=== PATIENT | female | born 1980 | race Caucasian/White ===

== ENCOUNTER 2025-06-18 18:54 | Emergency (ER) | payer SELFPAY ==
[2025-06-18 18:55] VITALS: BP 122/80; PULSE 88; RESP 16; TEMP 36.6; O2SAT 97; BMI 44.7
--- NOTE | 2025-06-18 19:42 | EX.ED.DYSGE1 ---
HPI History of Present Illness Chief Complaint: Lower Extremity Injury PFSH PFSH Allergy/AdvReac Type Severity Reaction Status Date / Time Opioids - Morphine Analogues AdvReac Mild INTOLERANC Verified 06/18/25 18:55 (narcotics) E EXAM Physical Exam Const Vital Signs: 06/18/25 18:55 Temperature 98 F Temperature Source Temporal Pulse Rate 88 Respiratory Rate 16 Blood Pressure 122/80 H Blood Pressure Mean 94 Pulse Ox 97 Oxygen Delivery Method Room Air [facility] Narrative Medical decision making narrative: HISTORY OF PRESENT ILLNESS: Chief complaint: Right thigh pain 44-year-old female presents with right thigh numbness and sharp shooting pains. She notes it is painful to touch at times but not currently. She denies any injury REVIEW OF SYSTEMS: Pertinent positives: Thigh pain Pertinent negatives: Discoloration of the right lower extremity PHYSICAL EXAM: Nursing triage notes reviewed, Vital signs reviewed Constitutional: please see mdm HENT: MMM Eyes: Pupils equal round and reactive to light, Extraocular muscles intact Neck: No stridor, no JVD, full neck ROM Lungs: Clear to auscultation, No wheezing or rales. No increased work of breathing, no conversational dyspnea, no accessory muscle use, no nasal flaring. No respiratory distress noted Heart: Regular rate and rhythm, No murmurs, No rubs and No gallops, 2+ distal pulses (radial, femoral, posterior tibial) in all extremities Abdomen: Soft, there is no tenderness, rigidity, rebound or guarding, no obvious peritoneal signs, no palpable pulsatile abdominal masses, no auscultated abdominal bruit : No CVAT Extremities: No edema, full range of motion, no obvious forms, right lower extremity warm and well-perfused. Intact range of motion in hip flexion extension, internal/external rotation. Intact knee range of motion and ankle range of motion Neuro: Intact sensation L1-S1 dermatomal distributions. Intact 5/5 strength in hip flexion (T12-L3). Knee extension (L2-L4). Ankle dorsiflexion (L4-L5). Ankle plantar flexion (S1). Great toe extension (L5). 2+ patellar and Achilles DTRs. Skin: No rash or lesions noted MEDICAL DECISION MAKING: Chief Complaint: please see HPI External records reviewed: No prior imaging of the right femur Factors affecting care: none Social determinants of health: none History obtained from others: none Consults: none [facility] Narrative: The patient was initially hemodynamically stable, afebrile and nontoxic-appearing. Exam [] I considered the following differential diagnosis: Musculoskeletal injury, fracture, dislocation, cellulitis, necrotizing fasciitis, abscess I obtained [] to further determine if the patient was suffering from a life-threatening etiology. [] ALL IMAGES (IF OBTAINED) HAVE BEEN PERSONALLY REVIEWED AND INTERPRETED BY MYSELF. [] The patient and/or family, caregivers express understanding. The patient and/or family, caregivers agrees with the plan. Shared decision making: I will have a discussion with the patient and or visitors regarding risk/benefits of further testing or admission. They will be made aware of of the risk/benefits inherent in this decision they will be given the opportunity to voice understanding. Total critical care time today provided was at least 0 [] minutes. This excludes separately billable procedures. Critical care time (if documented) is secondary to the patient having high probability of clinically significant/life threatening deterioration in the patient's condition which required my urgent intervention. Impression: 1. [] 2. [] [] Dispo: [] This note was generated with [employer] dictation software. It may contain incorrect words, spelling, and punctuation that were not noted in review of the chart prior to signing. Discharge Plan Triage Chief Complaint: Lower Extremity Injury ED Provider: Deangelo Araujo Dx/Rx/DC Orders Primary Care Provider: Care Physician,No Primary Referrals: Care Physician,No Primary [Primary Care Provider, Medical] Print Language: Citizen Of [place]
--- OUTSIDE RECORDS SUMMARY | 2025-06-18 19:42 | XMS RPT_ITS | CCD ---
Author Organization [facility] Care Team Providers Care [place] [employer] Name Role Phone Beto Andrade Unavailable Darell TAYLOR, Beto Salinas Primary Care Provider Santana Morgan MD Unavailable Beto Andrade MD Primary Care Provider AWASTY, BETO KUSUM Primary Care Unavailable MURTAZA, MARGARETTE JACQUI Admitting Unavailable MURTAZA, MARGARETTE JACQUI Referring Unavailable AWASTY, BETO KUSUM Primary Care Unavailable MURTAZA, MARGARETTE JACQUI Admitting Unavailable MURTAZA, MARGARETTE JACQUI Referring Unavailable SANTANA MORGAN Referring Unavailable AWASTY, BETO KUSUM Primary Care Unavailable SANTANA MORGAN Admitting Unavailable AWASTY, BTEO KUSUM Primary Care Unavailable AWASTY, BETO KUSUM Admitting Unavailable AWASTY, BETO KUSUM Primary Care Unavailable AWASTY, BETO KUSUM Referring Unavailable Awasty Beto TAYLOR Primary Care Provider Santana Morgan MD Unavailable AWASTY, BETO KUSUM Primary Care Unavailable VERNON REZA Attending Ovidio romanle AWASTY, BETO KUSUM Primary Care Unavailable AWASTY, BETO KUSUM Attending Unavailable AWASTY, BETO KUSUM Admitting Unavailable MURTAZA, MARGARETTE JACQUI Attending Unavailable AWASTY, BETO KUSUM Primary Care Unavailable AWASTY, BETO KUSUM Referring Unavailable AWASTY, BETO KUSUM Primary Care Unavailable MURTAZA, MARGARETTE JACQUI Attending Unavailable AWASTY, BETO KUSUM Referring Unavailable AWASTY, BETO KUSUM Primary Care Unavailable AWASTY, BETO KUSUM Attending Unavailable AWASTY, BETO KUSUM Primary Care Unavailable AWASTY, BETO KUSUM Attending Unavailable AWASTY, BETO KUSUM Primary Care Unavailable MURTAZA, MARGARETTE JACQUI Attending Unavailable MURTAZA, MARGARETTE JACQUI Referring Unavailable AWASTY, BETO KUSUM Primary Care Unavailable AWASTY, BETO KUSUM Attending Unavailable AWASTY, BETO KUSUM Referring Unavailable AWASTY, BETO KUSUM Primary Care Unavailable AWASTY, BETO KUSUM Attending Unavailable AWASTY, BETO KUSUM Referring Unavailable AWASTY, BETO KUSUM Primary Care Unavailable AWASTY, BETO KUSUM Primary Care Unavailable MURTAZA, MARGARETTE JACQUI Attending Unavailable MURTAZA, MARGARETTE JACQUI Referring Unavailable Allergies Allergy Classification Reported Allergen(s) Allergy Type Date of Onset Reaction(s) Facility Acetaminophen / HYDROcodone (3 sources) Acetaminophen / HYDROcodone Drug Allergy 5 [facility] Acetaminophen / oxyCODONE (3 sources) Acetaminophen / oxyCODONE Drug Allergy 9 [facility] Work Phone: (20 sources) acetaminophen / HYDROcodone; Translations: [HYDROCODONE-ACET AMINOPHEN] Drug Allergy 5 [facility] (9 sources) HYDROcodone Drug Allergy 6 [facility] (18 sources) Acetaminophen / oxyCODONE; Translations: [OXYCODONE-ACETAM INOPHEN] Drug Allergy 9 [facility] Medications Current Medications Medication Drug Class(es) Dates Sig (Normalized) Sig (Original) acetaminophen 325 mg / HYDROcodone bitartrate 5 mg oral tablet (4 sources) Opioid Agonist Start: 04-12-2019 End: 04-15-2019 take 1 tablet by mouth every eight hours as needed HYDROcodone-aceta minophen (NORCO) 5-325 mg per tablet Indications: S/P carpal tunnel release Take 1 (one) tablet by mouth every 8 (eight) hours as needed . 9 tablet 0 04/12/2019 04/15/2019 Active Start: 04-12-2019 End: 04-12-2019 take 1 tablet by mouth every four hours as needed 1 tablet, Oral, Every 4 hours PRN, moderate to severe pain, Starting Fri04/12/19 at 0713, Post-Procedure Start: 02-10-2019 End: 02-13-2019 take 1 tablet by mouth every six hours as needed HYDROcodone-acetaminophen (NORCO) 5-325 mg per tablet Indications: S/P carpal tunnel release Take 1 (one) tablet by mouth every 6 (six) hours as needed . 12 tablet 0 02/10/2019 02/13/2019 Active Start: 02-10-2019 End: 02-10-2019 take 1-2 tablets by mouth every four hours as needed 1-2 tablet, Oral, Every 4 hours PRN, moderate to severe pain, Starting Fri02/10/19 at 0800 acyclovir 400 mg oral tablet (20 sources) Herpesvirus Nucleoside Analog DNA Polymerase Inhibitor, Herpes Simplex Virus Nucleoside Analog DNA Polymerase Inhibitor, Herpes Zoster Virus Nucleoside Analog DNA Polymerase Inhibitor take 1 tablet by mouth twice daily acyclovir (ZOVIRAX) 400 MG tablet Take 400 mg by mouth 2 (two) times a day 0 Active cefdinir 300 mg oral capsule (8 sources) Cephalosporin Antibacterial Start: 07-28-20 19 End: 02-08-20 21 take 1 capsule by mouth twice daily cefdinir (OMNICEF) 300 MG capsule Indications: Acute non-recurrent maxillary sinusitis Take 1 (one) capsule (300 mg total) by mouth 2 (two) times a day . 20 capsule 0 07/28/2019 02/07/2021 Discontinued (Therapy completed) cholecalciferol 0.125 mg oral capsule (1 source) Vitamin D Start: 05-14-20 22 take 1 capsule by mouth once daily cholecalciferol, vitamin D3, 125 mcg (5,000 unit) capsule Indications: Vitamin D deficiency Take 1 (one) capsule (5,000 Units total) by mouth daily . 30 capsule 3 05/14/2022 Active Start: 05-14-2022 take 1 capsule by [facility] once daily cholecalciferol, vitamin D3, 125 mcg (5,000 unit) capsule Indications: Vitamin D deficiency Take 1 (one) capsule (5,000 Units total) by mouth daily . 30 capsule 3 05/14/2022 Active escitalopram 10 mg oral tablet (20 sources) Serotonin Reuptake Inhibitor Start: 04-17-2022 take 1 tablet by mouth once daily escitalopram oxalate (LEXAPRO) 10 MG tablet Take 1 (one) tablet (10 mg total) by mouth daily . 0 04/17/2022 Active End: 11-16-2021 take 1 tablet by mouth once daily escitalopram oxalate (LEXAPRO) 20 MG tablet Take 20 mg by mouth daily . 0 11/16/2021 Discontinued fluticasone propionate 0.05 mg/actuat metered dose nasal spray (20 sources) Corticosteroid Start: 10-29-2017 End: 08-28-2021 take 2 spray(s) nasal route once daily fluticasone propionate (FLONASE) 50 mcg/actuation nasal spray Indications: Non-seasonal allergic rhinitis due to pollen Instill 2 (two) sprays into each nostril daily . 16 g 3 08/28/2021 Active multivitamin (THERAGRAN) per tablet (20 sources) multivitamin (THERAGRAN) per tablet 1 tablet daily 0 Active Multivitamin Tablet (1 source) multivitamin (THERAGRAN) per tablet 1 tablet daily Active ondansetron 8 mg oral tablet (12 sources) Serotonin-3 Receptor Antagonist Start: 04-12-2019 End: 02-07-2021 take 1 tablet by mouth every eight hours as needed ondansetron (ZOFRAN) 8 MG tablet Take 1 (one) tablet (8 mg total) by mouth every 8 (eight) hours as needed for nausea . 9 tablet 0 04/12/2019 02/07/2021 Discontinued (Prescriber Discontinued) Start: 04-12-2019 End: 04-12-2019 take 4 mg intravenous route every six hours as needed 4 mg, Intravenous, Every 6 hours PRN, nausea, vomiting, Starting Fri04/12/19 at 0713, Post-Procedure Start: 02-10-2019 End: 03-29-2019 take 1 tablet by mouth every eight hours as needed ondansetron (ZOFRAN) 8 MG tablet Take 1 (one) tablet (8 mg total) by mouth every 8 (eight) hours as needed for nausea . 20 tablet 0 02/10/2019 03/29/2019 Discontinued (Therapy completed) Start: 02-10-2019 End: 02-10-2019 take 4 mg intravenous route every six hours as needed 4 mg, Intravenous, Every 6 hours PRN, nausea, vomiting, Starting Fri02/10/19 at 0800 Completed/Discontinued Medications Medication Drug Class(es) Dates Sig (Normalized) Sig (Original) 0.5 ml bordetella pertussis filamentous hemagglutinin vaccine, inactivated 0.01 mg/ml / bordetella pertussis fimbriae 2/3 vaccine, inactivated 0.01 mg/ml / bordetella pertussis pertactin vaccine, inactivated 0.006 mg/ml / bordetella pertussis toxoid vaccine, inactivated 0.005 mg/ml / diphtheria toxoid vaccine, inactivated 4 unt/ml / tetanus toxoid vaccine, inactivated 10 unt/ml injection (1 source) Inactivated Corynebacterium Diphtheriae Vaccine, Inactivated Clostridium Tetani Vaccine Start: 03-31-2018 End: 03-31-2018 diptheria, tetanus toxoid, acellular pertusssis (ADACEL) 2 Lf-(2.5-5-3-5 mcg)-5Lf/0.5 mL injection Indications: Immunization due Sign this order in conjunction with the immunization order to satisfy [place] Board of Pharmacy Positive ID requirements for immunization orders. 1 mL 0 03/31/2018 03/31/2018 60 actuat albuterol 0.09 mg/actuat metered dose inhaler (3 sources) beta2-Adrenergic Agonist Start: 02-10-2019 End: 02-10-2019 albuterol inhaler 2 puff Start: 02-10-2019 End: 02-10-2019 albuterol 90 mcg/actuation i nhaler - ADS Override Pull Start: 02-10-2019 End: 02-10-2019 2.5 mg, Inhalation, As neede d, wheezing, Starting Fri02/10/19 at 0538, Pre-Procedure 24 hr buPROPion hydrochloride 150 mg extended release oral tablet (19 sources) Aminoketone Start: 04-18-2021 End: 08-28-2021 take 1 tablet by mouth once daily in the morning buPROPion (WELLBUTRIN XL) 150 MG 24 hr tablet Take 150 mg by mouth daily IN THE MORNING . 0 04/18/2021 08/28/2021 Discontinued (Patient's Request) End: 05-02-2021 bupropion HCl (WELLBUTRIN OR AL) Take by mouth . 0 05/02/2021 Discontinued (Duplicate order) bupropion HCl (W ELLBUTRIN ORAL) Take by mouth . 0 Active calcium chloride 0.0014 meq/ml / potassium chloride 0.004 meq/ml / sodium chloride 0.103 meq/ml / sodium lactate 0.028 meq/ml injectable solution (3 sources) Start: 04-12-2019 End: 04-12-2019 take 50 mL intravenous route every hour 50 mL/hr, Intravenous, Continuous, Starting Fri04/12/19 at 0630, Pre-Procedure Start: 02-10-2019 End: 02-10-2019 take 50 mL intravenous route every hour 50 mL/hr, Intravenous, Continuous, Starting Fri02/10/19 at 0630, Pre-Procedure Start: 10-26-2018 End: 10-26-2018 lactated Ringers infusion diazePAM 10 mg oral tablet (2 sources) Benzodiazepine Start: 04-12-2019 End: 04-12-2019 take 10 mg by mouth once 10 mg, Oral, Once, Fri04/12/19 at 0630, For 1 dose, Pre-Procedure Start: 02-10-2019 End: 02-10-2019 take 5 mg by mouth once 5 mg, Oral, Once, Fri 9 at 0630, For 1 dose, Pre-Procedure ergocalciferol 1.25 mg oral capsule (20 sources) Provitamin D2 Compound Start: 11-07-2021 End: 08-08-2022 take 1 capsule by mouth every week ergocalciferol (Vitamin D2) 1,250 mcg (50,000 unit) capsule Take 1 (one) capsule (50,000 Units total) by mouth once a week . 12 capsule 1 05/10/2022 05/13/2022 Discontinued (Dose adjustment) Start: 01-07-2019 End: 08-28-2021 take 1 capsule by mouth every week ergocalciferol (Vitamin D2) 1,250 mcg (50,000 unit) capsule Indications: Vitamin D deficiency Take 1 (one) capsule (50,000 Units total) by mouth once a week for 8 doses . 8 capsule 0 02/07/2021 08/28/2021 Discontinued (Patient's Request) hydrOXYzine hydrochloride 10 mg oral tablet (12 sources) Antihistamine Start: 09-25-2021 End: 05-10-2022 take 1 tablet by mouth three times daily as needed hydrOXYzine (ATARAX) 10 MG tablet Take 10 mg by mouth 3 (three) times a day as needed CHEPE . 0 09/25/2021 05/10/2022 Discontinued (Patient's Request) Start: 04-18-2021 End: 05-02-2021 take 1 tablet by mouth once daily as needed for sleep hydrOXYzine (ATARAX) 10 MG tablet TAKE 1 TABLET BY MOUTH ONCE A DAY NEEDED SLEEP 0 04/18/2021 05/02/2021 Discontinued (Duplicate order) Start: 02-06-2021 End: 08-28-2021 hydrOXYzine (ATARAX) 25 MG t ablet take 1 tablet by asim th at bedtime hydrOXYzine (ATARAX) 50 MG tablet Take 1 (one) tablet (50 mg total) by mouth at bedtime . 0 Active ibuprofen 600 mg oral tablet (20 sources) Nonsteroidal Anti-inflammatory Drug Start: 04-12-2019 End: 04-12-2019 take 1 tablet by mouth every six hours as needed 600 mg, Oral, Every 6 hours PRN, headaches, mild pain, Starting 04/12/19 at 0713 Give with Food Do Not Crush or Chew if administering orally due to bitter taste. May be crushed if given via tube. Start: 02-10-2019 End: 02-10-2019 take 1 tablet by mouth every six hours as needed 600 mg, Oral, Every 6 hours PRN, headaches, mild pain, Starting Fri02/10/19 at 0800 Give with Food Do Not Crush or Chew if administering orally due to bitter taste. May be crushed if given via tube. Start: 03-27-2018 take 1 tablet by asim th every eight hours as needed ibuprofen (ADVIL,MOTRIN) 800 MG tablet Take 800 mg by mouth every 8 (eight) hours as needed. 1 03/27/2018 Active LORazepam 1 mg oral tablet (1 source) Benzodiazepine Start: 10-11-2019 End: 10-11-2019 LORazepam (ATIVAN) tablet 1 mg naloxone (NARCAN) injection 0.1 mg (1 source) Start: 04-12-2019 End: 04-12-2019 naloxone (NARCAN) injection 0.1 mg NORETHINDRONE-E.ES TRADIOL-IRON (LO LOESTRIN FE ORAL) (1 source) End: 03-31-2018 take 1 tablet by mouth once daily NORETHINDRONE-E.E STRADIOL-IRON (LO LOESTRIN FE ORAL) Take 1 tablet by mouth daily. 03/31/2018 Discontinued OXcarbazepine 300 mg oral tablet (11 sources) Anti-epileptic Agent Start: 07-20-2019 End: 08-28-2021 take 1 tablet by mouth twice daily OXcarbazepine (TRILEPTAL) 300 MG tablet Take 300 mg by mouth 2 (two) times a day . 1 07/20/2019 08/28/2021 Discontinued (Patient's Request) PARoxetine hydrochloride 20 mg oral tablet (3 sources) Serotonin Reuptake Inhibitor Start: 09-22-2018 End: 01-07-2019 take 1 tablet by mouth once daily PARoxetine (PAXIL) 20 MG tablet Indications: Anxiety Take 1 (one) tablet (20 mg total) by mouth daily . 30 tablet 1 09/22/2018 01/07/2019 Discontinued polyethylene glycol 3350 14302 mg powder for oral solution (20 sources) Osmotic Laxative Start: 09-03-2018 End: 05-02-2021 polyethylene glycol (MIRALAX) 17 gram powder Indications: Constipation, unspecified constipation type Take 17 (seventeen) g by mouth daily . 255 g 0 01/07/2019 05/02/2021 Discontinued (Prescriber Discontinued) 1000 ml sodium chloride 9 mg/ml injection (1 source) Start: 04-12-2019 End: 04-12-2019 take 50 mL intravenous route every hour 50 mL/hr, Intravenous, Continuous, Starting Fri04/12/19 at 0630, Pre-Procedure Problems Active Problems Problem Classification Problem Date Documented Da te Episodic/Chronic Adjustment disorders (1 source) Adjustment disorder; Translations: [Adjustment disorder, unspecified type] Chronic Anxiety disorders (1 source) Panic attack; Translations: [Panic Attack] Chronic Gastrointestinal hemorrhage (9 sources) Blood-tinged feces; Translations: [Hematochezia] Onset: 04-18-2016 04-18-2016 Mood disorders (16 sources) Depressive disorder; Translations: [Mild major depression, single episode] Onset: 02-07-2021 Chronic Nutritional deficiencies (5 sources) Vitamin D deficiency; Translations: [Vitamin D deficiency, unspecified] Chronic Other and unspecified benign neoplasm (1 source) History of polyp of colon; Translations: [History of colon polyps] Episodic Other and unspecified benign neoplasm (9 sources) Hyperplastic polyp of large intestine; Translations: [Colon polyp, hyperplastic] Onset: 05-08-2016 05-08-2016 Other gastrointestinal disorders (1 source) Constipation; Translations: [Constipation, unspecified constipation type] Episodic Other lower respiratory disease (1 source) Cough; Translations: [Cough] Episodic Other nervous system disorders (1 source) Meralgia paresthetica of right leg; Translations: [Meralgia paresthetica, right lower limb] Chronic Other nervous system disorders (4 sources) Carpal tunnel syndrome, bilateral upper limbs; Translations: [Bilateral carpal tunnel syndrome] Other nutritional; endocrine; and metabolic disorders (20 sources) Morbid obesity; Translations: [Morbid (severe) obesity due to excess calories] Onset: 01-08-2017 01-08-2017 Chronic Other nutritional; endocrine; and metabolic disorders (7 sources) Body mass index 40+ - severely obese; Translations: [Morbid (severe) obesity due to excess calories] Onset: 01-08-2017 01-08-2017 Chronic Other screening for suspected conditions (not mental disorders or infectious disease) (1 source) Patient encounter status; Translations: [Encounter for other screening for malignant neoplasm of breast] Episodic Other upper respiratory disease (8 sources) Allergic rhinitis due to pollen; Translations: [Allergic rhinitis] Onset: 03-31-2018 03-31-2018 Chronic Other upper respiratory disease (20 sources) Allergic rhinitis; Translations: [Allergic rhinitis, unspecified] Onset: 03-31-2018 03-31-2018 Chronic Other upper respiratory infections (1 source) Chronic sinusitis Chronic Residual codes; unclassified (2 sources) History of decompression of median nerve; Translations: [S/P carpal tunnel release] Episodic Spondylosis; intervertebral disc disorders; other back problems (7 sources) Thoracic radiculopathy; Translations: [Thoracic radiculopathy] Onset: 09-09-2019 09-09-2019 Chronic Unclassified (2 sources) Non-smoker; Translations: [Nonsmoker] Past or Other Problems Problem Classification Problem Date Documented Da te Episodic/Chronic Abdominal pain (20 sources) Epigastric pain; Translations: [Epigastric pain] Onset: 04-18-2016 04-18-2016 Episodic Chronic obstructive pulmonary disease and bronchiectasis (20 sources) Bronchitis; Translations: [Bronchitis, not specified as acute or chronic] Onset: 07-30-2016 Resolved: 12-11-2016 12-11-2016 Episodic Gastritis and duodenitis (20 sources) Gastritis; Translations: [Gastritis, unspecified, without bleeding] Onset: 05-08-2016 05-08-2016 Episodic Gastrointestinal hemorrhage (19 sources) Melena; Translations: [Rectal hemorrhage] Onset: 04-18-2016 04-18-2016 Episodic Nonspecific chest pain (17 sources) Chest discomfort; Translations: [Other chest pain] Onset: 08-28-2021 Episodic Other and unspecified benign neoplasm (8 sources) Polyp of colon; Translations: [Colon polyp, hyperplastic] Onset: 05-08-2016 05-08-2016 Episodic Other and unspecified benign neoplasm (10 sources) Hyperplastic polyp of large intestine; Translations: [Polyp of colon] Onset: 05-08-2016 05-08-2016 Episodic Other gastrointestinal disorders (20 sources) Diarrhea; Translations: [Diarrhea, unspecified] Onset: 04-18-2016 04-18-2016 Episodic Other upper respiratory infections (2 sources) Acute maxillary sinusitis; Translations: [Acute non-recurrent maxillary sinusitis] Episodic Spondylosis; intervertebral disc disorders; other back problems (12 sources) Neck pain; Translations: [Thoracic radiculopathy] Onset: 09-09-2019 09-09-2019 Episodic Unclassified (1 source) Immunization due Results Test Name Value Interpretation Reference Range Facility MM SCREENING IGLESIA BILATERALo n 05-06-2022 MM SCREENING IGLESIA BILATERAL EXAMINATION: BILATERAL DIGITAL SCREENING MAMMOGRAPHY WITH TOMOSYNTHESIS AND CAD COMPARISON: None. Baseline study. HISTORY: Breast carcinoma in a paternal aunt. No personal history of breast surgery. TECHNIQUE: CC and MLO films bilaterally were supplemented with tomosynthesis. Computer-assisted detection utilized in the interpretation of this exam. FINDINGS: Scattered fibroglandular tissue is present. There are no suspicious dominant masses or suspicious appearing clusters of calcification. Benign-appearing axillary nodes are seen. This includes the axillary tail of the left breast. IMPRESSION: No radiographic evidence of malignancy. BI-RADS: BIRADS - CATEGORY 2 Benign, no evidence of malignancy. Normal interval follow-up is recommended in 12 months. OVERALL ASSESSMENT - BENIGN A letter of notification will be sent to the patient regarding the results. [facility], along with the [employer], the [employer], and [facility], recommend annual screening mammograms for women age 40 and older. BRANDON/andres Workstation ID: [id number] Dictated by: MIRNA WELLER on FriMay 06, 2022 4:49:18 PM EDT Transcribed by: CHEVY REYES on FriMay 06, 2022 4:55:30 PM EDT Finalized by: MIRNA WELLER on FriMay 06, 2022 5:04:[address] [facility] COVID-19, MOLECULARon 2021 SARS-CoV-2 (COVID-19) RNA MIREILLE+probe Ql (Unsp spec) Not detected Normal Not Detected [facility] Comment on above: Result Comment: This test was performed under the FDA's Emergency Use Authorization (EUA). Testing was performed using the Sandra SARS-CoV-2 RT-PCR assay on the Meghna Sandra 6800 System. This test has not been approved for use in asymptomatic patients and its performance in this patient population has not been evaluated. Negative results do not rule out the presence of SARS-CoV-2/COVID-19. Fact sheets for this EUA can be found at the following links: For Healthcare Providers: https://www.fda.gov/media/488249/download For Patients: https://www.fda.gov/media/846965/download Performed By: #### L [id number] #### [facility] [address] [place] [address] Master Bell M.D. [id number] STRESS TEST ONLY, EXERCISEon 11-01-2021 STRESS TEST ONLY, EXERCISE Patient Info Name: JES CALDWELL Age: 41 years : 1980 Gender: Female Ht: 152 cm Wt: 112 kg BSA: 2.25 m2 HR: 78 bpm BP: 110 / 78 mmHg Heart Rhythm: Sinus Rhythm Exam Date: 11/01/2021 11:09 AM Patient Status: Outpatient Exam Type: STRESS TEST ONLY, EXERCISE Study Info Indications - Chest pain Attending Physician: Laura REZA Referring Physician: MARGARETTE HAUSER ; [id number] Stress Staff: Marlo Pate Primary Nurse: Tyesha Leonard RN Supervising Stress Physician: Joanie Reza MD BMI: 48.04 kg/m2 Summary 1. Normal ST segment response to stress. 2. No abnormal ST/T wave changes with exercise. 3. No arrhythmias were observed during the examination. 4. Patient denies any chest discomfort but states feeling light headed at end of exercise test. 5. Intermediate risk (-11 < Fuentes score < 5). 6. Exercise capacity fair to good at 6-10 METS. History/Risk Factors Obesity: Yes Protocol: LIVIER Stress ECG Details --------- Stage: PRETEST SUPINE Duration (min): 1 min : 44 sec Speed (mph): 0.0 Grade (%): 0 HR (bpm): 96 SBP (mmHg): --- DBP (mmHg): --- METS: 1.0 --------- Stage: PRETEST STANDING Duration (min): 2 min : 11 sec Speed (mph): 0.0 Grade (%): 0 HR (bpm): 102 SBP (mmHg): 110 DBP (mmHg): 78 METS: 1.0 --------- Stage: EXERCISE STAGE 1 Duration (min): 3 min : 0 sec Speed (mph): 1.7 Grade (%): 10 HR (bpm): 153 SBP (mmHg): 148 DBP (mmHg): 80 METS: 4.6 --------- Stage: EXERCISE STAGE 2 Duration (min): 1 min : 35 sec Speed (mph): 2.5 Grade (%): 12 HR (bpm): 164 SBP (mmHg): 148 DBP (mmHg): 80 METS: 6.4 --------- Stage: RECOVERY Duration (min): 5 min : 44 sec Speed (mph): 0.0 Grade (%): 0 HR (bpm): 104 SBP (mmHg): 124 DBP (mmHg): 74 METS: 1.0 Rest HR: 102 bpm Peak HR: 169 bpm Peak Sys BP: 162 mmHg Max Pred HR: 179 bpm % Max Pred HR: 94 % Target HR: 152 bpm Max RPP: 27,378 bpm*mmHg Termination Reason: Dyspnea Cardiac Symptoms: No chest pain, Lightheaded/pre-synco pe Total Time: 4 min : 35 sec Peak Gan BP: 78 mmHg Total METS: 6.4 Resting ECG Normal sinus rhythm. Stress ECG No abnormal ST/T wave changes with exercise. Arrhythmias No arrhythmias were observed during the examination. Stress Summary Patient denies any chest discomfort but states feeling light headed at end of exercise test. Intermediate risk (-11 < Fuentes score < 5). Report Signatures Finalized by Wily Lyon MD on 11/01/2021 04:[address] [facility] COVID-19, MOLECULARon 2021 SARS-CoV-2 (COVID-19) RNA MIREILLE+probe Ql (Unsp spec) Not detected Normal Not Detected [facility] Comment on above: Result Comment: This test was performed under the FDA's Emergency Use Authorization (EUA). Testing was performed using the Sandra SARS-CoV-2 RT-PCR assay on the Meghna Sandra 6800 System. This test has not been approved for use in asymptomatic patients and its performance in this patient population has not been evaluated. Negative results do not rule out the presence of SARS-CoV-2/COVID-19. Fact sheets for this EUA can be found at the following links: For Healthcare Providers: https://www.fda.gov/media/952658/download For Patients: https://www.fda.gov/media/319616/download Performed By: #### L [id number] #### [facility] [address] [place] [address] Master Bell M.D. [id number] COVID-19, MOLECULARon 2021 SARS-CoV-2 (COVID-19) RNA MIREILLE+probe Ql (Unsp spec) Not detected Normal Not Detected [facility] Comment on above: Result Comment: This test was performed under the FDA's Emergency Use Authorization (EUA). Testing was performed using the TaqPath?? RT-PCR COVID-19 Assay. This test has not been approved for use in asymptomatic patients and its performance in this patient population has not been evaluated. Negative results do not rule out the presence of SARS-CoV-2/COVID-19. Fact sheets for this EUA can be found at the following links: For Healthcare Providers: https://www.Hithru.gov/media/629142/download For Patients: https://www.fda.gov/media/992491/download Performed By: #### L [id number] #### [facility] [address] [place] [address] Master Bell M.D. [id number] ECHOCARDIOGRAM COMPLETEon ECHOCARDIOGRAM COMPLETE Patient Info Name: JES CALDWELL Age: 41 years : 1980 Gender: Female Ht: 152 cm Wt: 112 kg BSA: 2.25 m2 BP: 106 / 74 mmHg Exam Date: 10/08/2021 8:44 AM Patient Status: Outpatient Exam Type: ECHOCARDIOGRAM COMPLETE Study Info Indications R07.9 - Chest pain, unspecified Referring Physician: Margarette Hauser MD; [id number] BMI: 48.04 kg/m2 Summary 1. Normal cardiac chamber sizes. 2. Mild left ventricular concentric hypertrophy. 3. Left ventricular systolic function is hyperdynamic with an ejection fraction by Biplane Method of Discs of 71 %. 4. Left ventricular segmental wall motion is normal. 5. The left ventricular diastolic function is normal. 6. There is trace mitral valve regurgitation. 7. Pericardium is normal in appearance with no evidence for significant pericardial effusion. Left Ventricle Mild left ventricular concentric hypertrophy. Left ventricular systolic function is hyperdynamic with an ejection fraction by Biplane Method of Discs of 71 %. Left ventricular segmental wall motion is normal. The left ventricular diastolic function is normal. Left Atria Normal cardiac chamber sizes. Mitral Valve There is trace mitral valve regurgitation. Pericardium/Pleural Pericardium is normal in appearance with no evidence for significant pericardial effusion. Left Ventricular Outflow Tract ------- Name Value Normal ------- LVOT Doppler ------- LVOT Peak Velocity 0.9 m/s LVOT Peak Gradient 3 mmHg LVOT Mean Gradient 1 mmHg LVOT VTI 22 cm LVOT VTI/AV VTI Ratio 0.8 Pulmonic Valve ------- Name Value Normal ------- PV Doppler ------- PV Peak Velocity 0.85 m/s PV Peak Gradient 3 mmHg PV Regurgitation Doppler ------- VA Peak Velocity 130.80 cm/s VA Peak Gradient 7 mmHg VA Decel [place] 75 cm/s2 VA PHT 503 ms Mitral Valve ------- Name Value Normal ------- MV Doppler ------- MV Peak Velocity 0.86 m/s MV Peak Gradient 3 mmHg MV Mean Gradient 1 mmHg MV Decel [place] 346 cm/s2 MV PHT 72 ms MV Area (PHT) 3.1 cm2 4.0-5.0 MV Regurgitation Doppler ------- MR Peak Gradient 30 mmHg MV Diastolic Function ------- MV E Peak Velocity 1 m/s MV A Peak Velocity 1 m/s MV E/A 1.3 MV Decel Time 248 ms MV Annular TDI ------- MV Septal e' Velocity 11.2 cm/s >=8.0 MV E/e' (Septal) 7.6 <=8.0 MV Lateral e' Velocity 11.3 cm/s >=10.0 MV E/e' (Lateral) 7.6 <=8.0 MV e' Average 11.24 cm/s MV E/e' (Average) 7.6 Tricuspid Valve ------- Name Value Normal ------- TV Doppler ------- TV Peak Velocity 0.7 m/s TV Peak Gradient 2 mmHg TV Mean Gradient 0 mmHg TV Regurgitation Doppler ------- TR Peak Velocity 2.24 m/s TR Peak Gradient 20 mmHg Pulmonary Vessels ------- Name Value Normal ------- Pulmonary Veins ------- Pulm Vein Peak Systolic Velocity 43 cm/s Pulm Vein Peak Diastolic Velocity 38 cm/s Pulm Vein S/D Velocity Ratio 1.13 Aorta ------- Name Value Normal ------- Ascending Aorta ------- Ao Root Diameter (2D) 2.6 cm 2.7-3.3 Ao Root Diam Index (2D) 1.2 cm/m2 1.6-2.0 Prox Asc Ao Diameter 2.7 cm 2.3-3.1 Prox Asc Ao Diameter Index 1.2 cm/m2 1.3-1.9 Aortic Valve ------- Name Value Normal ------- AV Doppler ------- AV Peak Velocity 1.2 m (more content not included)... Normal [facility] COVID-19/INFLUENZA A,B MOLEC [facility] 09-11-2021 SARS-CoV-2 (COVID-19) Ab IA Ql SARS-COV-2 RNA (MEGHNA): Not Detected INFLUENZA A (MEGHNA): Not Detected INFLUENZA B (MEGHNA): Not Detected Normal Not Detected [facility] Comment on above: Order Comment: This test was performed under the FDA's Emergency Use Authorization (EUA). Testing was performed using the Sandra SARS-CoV-2 RT-PCR AND Influenza A/B assay on the Meghna Sandra 6800 System. This test has not been approved for use in asymptomatic patients and its performance in this patient population has not been evaluated. Negative results do not rule out the presence of SARS-CoV-2/COVID-19, influenza A, and/or influenza B. Fact sheets for this EUA can be found at the following links: For Healthcare Providers: https://www.fda.gov/media/261481/download ?? For Patients: https://www.fda.gov/media/335343/download Performed By: #### L [id number] #### [facility] [address] [place] [address] Master Bell M.D. [id number] ECG 12 LeadOrdered By: Beena Forte on 08-28-2021 Atrial Rate [facility] P-R Interval [facility] Q-T Interval [facility] Q-T Interval (corrected) [facility] QRS Duration [facility] QTC Calculation (Bezet) [facility] R [facility] T [facility] Ventricular [facility] XR CHEST AP/PA AND LATon XR CHEST AP/PA AND LAT EXAMINATION: XR CHEST AP/PA AND LAT 08/28/2021 10:05 am HISTORY: ORDERING SYSTEM PROVIDED HISTORY: chest discomfort, TECHNOLOGIST PROVIDED HISTORY: Illness/Other Reason for exam: pain Cancer History: na Surgery, RadiationHistory: no Encounter Type: Initial Additional signs and symptoms: none ORDERING SYSTEM PROVIDED DIAGNOSIS CODES: R07.89 Discomfort in chest COMPARISON: Chest x-ray 11/13/2016. FINDINGS: Frontal and lateral views of the chest were obtained. The cardiomediastinal silhouette is within normal limits. Lungs are clear without focal airspace consolidation. No pneumothorax or pleural effusion. Visualized portions of the upper abdomen are unremarkable. No acute osseous abnormalities. IMPRESSION: Radiographic appearance of the chest is within normal limits. NORBERTO/lakisha Workstation ID: [id number] Dictated by: VIKASH YING on FriAug 28, 2021 4:04:58 PM EST Transcribed by: FAHAD ABBASI on FriAug 28, 2021 4:41:42 PM EST Finalized by: VIKASH YING on FriAug 28, 2021 6:59:[address] [facility] Comment on above: Order Comment: Injur y/Trauma or Illness?:Illness/Other How long have you had these symptoms (acute/chronic)?:Chronic Reason for exam?:pain History of cancer?:na Surgeries, chemotherapy, or radiation?:no Type of Exam?:Initial Additional signs and symptoms?:none COVID-19, MOLECULARon 2020 SARS-CoV-2 (COVID-19) RNA MIREILLE+probe Ql (Unsp spec) Not detected Normal Not Detected [facility] Comment on above: Order Comment: Santana esquivel, PH: [phone] Result Comment: This test was performed under the FDA's Emergency Use Authorization (EUA). Testing was performed using the Sandra SARS-CoV-2 RT-PCR assay on the Meghna Sandra 6800 System. This test has not been approved for use in asymptomatic patients and its performance in this patient population has not been evaluated. Negative results do not rule out the presence of SARS-CoV-2/COVID-19. Fact sheets for this EUA can be found at the following links: For Healthcare Providers: https://www.fda.gov/media/108194/download For Patients: https://www.fda.gov/media/792500/download Performed By: #### L [id number] #### [facility] [address] [place] [address] Master Bell M.D. [id number] Comprehensive metabolic 2000 panelOrdered By: Bteo Andrade on 02-07-2021 Albumin [Mass/Vol] 3.6 g/dL 3.2 - 5.2 g/dL [facility] ALP [Catalytic activity/Vol] 81 U/L 40 - 140 U/L [facility] ALT [Catalytic activity/Vol] 29 U/L 14 - 65 U/L [facility] Anion gap [Moles/Vol] 8 mmol/L Low 10 - 2 0 mmol/L [facility] AST [Catalytic activity/Vol] 19 U/L 0 - 45 U/L [facility] Bilirubin [Mass/Vol] 0.6 mg/dL 0.0 - 1 .3 mg/dL [facility] Calcium [Mass/Vol] 8.8 mg/dL 8.4 - 10. 2 mg/dL [facility] Chloride [Moles/Vol] 108 mmol/L 98 - 10 8 mmol/L [facility] Creatinine [Mass/Vol] 0.77 mg/dL 0.40 - 1.10 [facility] GFR/1.73 sq M.predicted CKD-EPI (S/P/Bld) [Vol rate/Area] 97 >=60 mL/min/1.73 m2 [facility] Glucose [Mass/Vol] 93 mg/dL 65 - 99 mg/dL [facility] HCO3 [Moles/Vol] 27 mmol/L 21 - 32 mmol/L [facility] Potassium [Moles/Vol] 4.1 mmol/L 3.5 - 5.1 mmol/L [facility] Protein [Mass/Vol] 7.5 g/dL 6.0 - 8.0 g/dL [facility] Sodium [Moles/Vol] 139 mmol/L 135 - 145 mmol/L [facility] Urea nitrogen [Mass/Vol] 10 mg/dL 8 - 25 mg/dL [facility] Urea nitrogen/Creatinine [Mass ratio] 13.0 mg/mg [facility] The eGFR should be used for monitoring renal function only and not for medication dosing. [facility] Lipid 1996 panelOrdered By: Beto Andrade on 02-07-2021 Cholesterol [Mass/Vol] 206 mg/dL High 100 - 199 mg/dL [facility] Comment on above: National Cholesterol Education Program Guidelines: Cholesterol Desirable: <200 mg/dL Borderline High: 200-239 mg/dL High: greater than or equal to 240 mg/dL Cholesterol in HDL [Mass/Vol] 59 mg/dL 40 - 59 [facility] Comment on above: National Cholesterol Education Program Guidelines: HDL Cholesterol Low: <40 mg/dL Near Optimal: 40-59 mg/dL High: greater than or equal to 60 mg/dL Cholesterol in LDL [Mass/Vol] 119 mg/dL 10 - 130 mg/dL [facility] Comment on above: National Cholesterol Education Program Guidelines: LDL Cholesterol Optimal: <100 mg/dL Near Optimal/above Optimal: 100-129 mg/dL Borderline High: 130-159 mg/dL High: 160-189 mg/dL Very High: greater than or equal to 190 mg/dL Cholesterol non HDL [Mass/Vol] 147 mg/dL [facility] Comment on above: National Cholesterol Education Program Guidelines: NON HDL Cholesterol Desirable: <130 mg/dL Borderline High: 130-159 mg/dL High: 160-189 mg/dL Very High: > or = 190 mg/dL Cholesterol.total/Chol esterol in HDL [Mass ratio] 3.5 {ratio} ratio [facility] Comment on above: Female Cholesterol/H DL Ratio: Average risk: 4.4 1/2 average risk: 3.3 2 x average risk: 7.1 Triglyceride [Mass/Vol] 140 mg/dL 30 - 150 mg/dL [facility] Comment on above: National Cholesterol Education Program Guidelines: Triglyceride Normal: <150 mg/dL Borderline High: 150-199 mg/dL High: 200-499 mg/dL Very High: greater than or equal to 500 mg/dL No Panel InformationOrdered By: Beto Andrade on 02-07-2021 Interpretation and review of laboratory results Abnormal [facility] Interpretation and review of laboratory results Normal [facility] T4, FreeOrdered By: Beto Holguin malena on 02-07-2021 Free T4 [Mass/Vol] 0.7 ng/dL 0.7 - 1.7 ng/dL [facility] TSH DL <= 0.005 mIU/L QnOrde red By: Beto Andrade on 02-07-2021 TSH Qn 1.44 m[IU]/L [facility] Otheron 10-11-2019 Straightening of the normal cervical lordosis which could be positional or related to underlying muscle spasm. Mild degenerative disc disease at C5/6. Gentle S-shaped curvature of the thoracic spine without significant degenerative change. Adreima Workstation ID: [id number] [facility] EXAMINATION: XR CERVICAL SPINE COMPLETE 4-5 VIEWS (STANDARD); XR THORACIC SPINE 3 VIEWS (STANDARD) 10/11/2019 2:20 pm HISTORY: ORDERING SYSTEM PROVIDED HISTORY: neck pain, TECHNOLOGIST PROVIDED HISTORY: Illness/Other Reason for exam: spine pain Cancer History: na Surgery, RadiationHistory: no Encounter Type: Initial Additional signs and symptoms: pain between scapula ORDERING SYSTEM PROVIDED DIAGNOSIS CODES: M54.2 Neck pain COMPARISON: None. FINDINGS: Cervical spine: Five views of the cervical spine. Straightening of the normal cervical lordosis. Vertebral body heights are preserved. Mild intervertebral disc space height loss at C5/6 with associated mild anterior endplate hypertrophy. Facets are anatomically aligned. No aggressive osseous lesions. No high-grade osseous neural foraminal narrowing. Thoracic Spine: Frontal and lateral views of the thoracic spine. Very gentle S-shaped curvature of the thoracic spine. Vertebral body and intervertebral disc space heights are preserved. Facets are anatomically aligned. Visualized lungs are clear. [facility] Interface, Rad In Fuji Speechq - 10/11/2019 11:26 PM EST EXAMINATION: XR CERVICAL SPINE COMPLETE 4-5 VIEWS (STANDARD); XR THORACIC SPINE 3 VIEWS (STANDARD) 10/11/2019 2:20 pm HISTORY: ORDERING SYSTEM PROVIDED HISTORY: neck pain, TECHNOLOGIST PROVIDED HISTORY: Illness/Other Reason for exam: spine pain Cancer History: na Surgery, RadiationHistory: no Encounter Type: Initial Additional signs and symptoms: pain between scapula ORDERING SYSTEM PROVIDED DIAGNOSIS CODES: M54.2 Neck pain COMPARISON: None. FINDINGS: Cervical spine: Five views of the cervical spine. Straightening of the normal cervical lordosis. Vertebral body heights are preserved. Mild intervertebral disc space height loss at C5/6 with associated mild anterior endplate hypertrophy. Facets are anatomically aligned. No aggressive osseous lesions. No high-grade osseous neural foraminal narrowing. Thoracic Spine: Frontal and lateral views of the thoracic spine. Very gentle S-shaped curvature of the thoracic spine. Vertebral body and intervertebral disc space heights are preserved. Facets are anatomically aligned. Visualized lungs are clear. IMPRESSION: Straightening of the normal cervical lordosis which could be positional or related to underlying muscle spasm. Mild degenerative disc disease at C5/6. Gentle S-shaped curvature of the thoracic spine without significant degenerative change. Adreima Workstation ID: [id number] [facility] POC Glucoseon 04-12-2019 Glucose [Mass/Vol] 85 mg/dL 65 - 99 mg/dL [facility] Interpretation and review of laboratory results Normal [facility] Glucose [Mass/Vol] 85 mg/dL [facility] Interpretation and review of laboratory results Normal [facility] POC , Urineon 04-12 HCG ( test) Ql (U) Negative Negative [facility] Internal Control Pass [facility] Interpretation and review of laboratory results Normal [facility] Specific gravity (U) [Rel density] [facility] POC Glucoseon 02-10-2019 Glucose mass conc 105 mg/dL High 65 - 99 mg/dL [facility] Interpretation and review of laboratory results Abnormal [facility] Glucose mass conc 105 mg/dL [facility] Interpretation and review of laboratory results Abnormal [facility] POC , Urineon 02-10 HCG ( test) Ql (U) Negative Negative [facility] Internal Control Pass [facility] Interpretation and review of laboratory results Normal [facility] Specific gravity Relative Density (U) [facility] POC RAPID STREP Aon 01-12-20 Interpretation and review of laboratory results Normal [facility] S. pyogenes Ag Ql (Throat) Negative Negative [facility] POC , Urineon 10-26 HCG ( test) Ql (U) Negative Negative [facility] Internal Control [place] [facility] Interpretation and review of laboratory results Normal [facility] Specific gravity Relative Density (U) [facility] Vital Signs Date Time Vital Sign Value Performing Clinician Iftikhar estevez 05-10-2022 08:46-0400 Body height 152.4 cm Beto Andrade MD Work Phone: [facility] 05-10-2022 08:46-0400 Body mass index (BMI) [Ratio] 44.53 kg/m2 Beto Andrade MD Work Phone: [facility] 05-10-2022 08:46-0400 Body temperature 97.9 [degF] Beto Andrade MD Work Phone: [facility] 05-10-2022 08:46-0400 Body weight 103.42 kg Beto Andrade MD Work Phone: [facility] 05-10-2022 08:46-0400 Diastolic blood pressure 70 mm[Hg] Beto Andrade MD Work Phone: [facility] 05-10-2022 08:46-0400 Heart rate 79 /min Beto Andrade MD Work Phone: [facility] 05-10-2022 08:46-0400 SaO2% (BldA) [Mass fraction] 98 % Beto Andrade MD Work Phone: [facility] 05-10-2022 08:46-0400 Systolic blood pressure 104 mm[Hg] Beto Andrade MD Work Phone: [facility] 11-16-2021 10:22-0500 Body height 152.4 cm Beto Andrade MD Work Phone: [facility] 11-16-2021 10:22-0500 Body mass index (BMI) [Ratio] 46.68 kg/m2 Beto Andrade MD Work Phone: [facility] 11-16-2021 10:22-0500 Body weight 108.41 kg Beto Andrade MD Work Phone: [facility] 11-16-2021 10:22-0500 Diastolic blood pressure 63 mm[Hg] Beto Andrade MD Work Phone: [facility] 11-16-2021 10:22-0500 Heart rate 63 /min Beto Andrade MD Work Phone: [facility] 11-16-2021 10:22-0500 SaO2% (BldA) [Mass fraction] 96 % Beto Andrade MD Work Phone: [facility] 11-16-2021 10:22-0500 Systolic blood pressure 107 mm[Hg] Beto Andrade MD Work Phone: [facility] 11-07-2021 10:59-0500 Body height 152.4 cm Margarette Hauser MD Work Phone: [facility] 11-07-2021 10:59-0500 Body mass index (BMI) [Ratio] 48.04 kg/m2 Magrarette Hauser MD Work Phone: [facility] 11-07-2021 10:59-0500 Body weight 111.58 kg Margarette Hauser MD Work Phone: [facility] 11-07-2021 10:59-0500 Diastolic blood pressure 73 mm[Hg] Margarette Hauser MD Work Phone: [facility] 11-07-2021 10:59-0500 Heart rate 81 /min Margarette Hauser MD Work Phone: [facility] 11-07-2021 10:59-0500 SaO2% (BldA) [Mass fraction] 94 % Margarette Hauser MD Work Phone: [facility] 11-07-2021 10:59-0500 Systolic blood pressure 110 mm[Hg] Margarette Hauser MD Work Phone: [facility] 09-28-2021 11:01-0500 Body height 152.4 cm Margarette Hauser MD Work Phone: [facility] 09-28-2021 11:01-0500 Body mass index (BMI) [Ratio] 48.04 kg/m2 Margarette Hauser MD Work Phone: [facility] 09-28-2021 11:01-0500 Body weight 111.58 kg Margarette Hauser MD Work Phone: [facility] 09-28-2021 11:01-0500 Diastolic blood pressure 74 mm[Hg] Margarette Hauser MD Work Phone: [facility] 09-28-2021 11:01-0500 Heart rate 74 /min Margarette Hauser MD Work Phone: [facility] 09-28-2021 11:01-0500 SaO2% (BldA) [Mass fraction] 96 % Margarette Hauser MD Work Phone: [facility] 09-28-2021 11:01-0500 Systolic blood pressure 106 mm[Hg] Margarette Hauser MD Work Phone: [facility] 08-28-2021 08:55-0500 Body height 152.4 cm Beto Andrade MD Work Phone: [facility] 08-28-2021 08:55-0500 Body mass index (BMI) [Ratio] 47.65 kg/m2 Beto Andrade MD Work Phone: [facility] 08-28-2021 08:55-0500 Body temperature 97.81 [degF] Beto Andrade MD Work Phone: [facility] 08-28-2021 08:55-0500 Body weight 110.68 kg Beto Andrade MD Work Phone: [facility] 08-28-2021 08:55-0500 Diastolic blood pressure 72 mm[Hg] Beto Andrade MD Work Phone: [facility] 08-28-2021 08:55-0500 Heart rate 81 /min Beto Andrade MD Work Phone: [facility] 08-28-2021 08:55-0500 SaO2% (BldA) [Mass fraction] 95 % Beto Andrade MD Work Phone: [facility] 08-28-2021 08:55-0500 Systolic blood pressure 99 mm[Hg] Beto Andrade MD Work Phone: [facility] 05-02-2021 08:46-0400 Body height 152.4 cm Beto Andrade MD Work Phone: [facility] 05-02-2021 08:46-0400 Body mass index (BMI) [Ratio] 50.15 kg/m2 Beto Andrade MD Work Phone: [facility] 05-02-2021 08:46-0400 Body temperature 98.2 [degF] Beto Andrade MD Work Phone: [facility] 05-02-2021 08:46-0400 Body weight 116.48 kg Beto Andrade MD Work Phone: [facility] 05-02-2021 08:46-0400 Diastolic blood pressure 73 mm[Hg] Beto Andrade MD Work Phone: [facility] 05-02-2021 08:46-0400 SaO2% (BldA) [Mass fraction] 97 % Beto Andrade MD Work Phone: [facility] 05-02-2021 08:46-0400 Systolic blood pressure 103 mm[Hg] Beto Andrade MD Work Phone: [facility] 02-07-2021 09:01-0400 Body height 152.4 cm Beto Andrade MD Work Phone: [facility] 02-07-2021 09:01-0400 Body mass index (BMI) [Ratio] 49.65 kg/m2 Beto Andrade MD Work Phone: [facility] 02-07-2021 09:01-0400 Body temperature 97.7 [degF] Beto Andrade MD Work Phone: [facility] 02-07-2021 09:01-0400 Body weight 115.3 kg Beto Andrade MD Work Phone: [facility] 02-07-2021 09:01-0400 Diastolic blood pressure 69 mm[Hg] Beto Andrade MD Work Phone: [facility] 02-07-2021 09:01-0400 Heart rate 87 /min Beto Andrade MD Work Phone: [facility] 02-07-2021 09:01-0400 SaO2% (BldA) [Mass fraction] 96 % Beto Andrade MD Work Phone: [facility] 02-07-2021 09:01-0400 Systolic blood pressure 102 mm[Hg] Beto Andrade MD Work Phone: [facility] 10-11-2019 23:15-0500 BP Diastolic 94 mm[Hg] [facility] 10-11-2019 23:15-0500 BP Systolic 134 mm[Hg] [facility] 10-11-2019 23:15-0500 Pulse Oximetry 97 % [facility] 10-11-2019 22:45-0500 Pulse (Heart Rate) 86 /min [facility] 10-11-2019 21:47-0500 BMI (Body Mass Index) 46.87 kg/m2 [facility] 10-11-2019 21:47-0500 Body Temperature 97.59 [degF] [facility] 10-11-2019 21:47-0500 Body weight 108.86 kg [facility] 10-11-2019 21:47-0500 Height 152.4 cm [facility] 10-11-2019 21:47-0500 Respiratory Rate 20 /min [facility] 09-09-2019 15:58-0500 BMI (Body Mass Index) 47.85 kg/m2 [facility] 09-09-2019 15:58-0500 Body weight 111.13 kg [facility] 09-09-2019 15:58-0500 BP Diastolic 72 mm[Hg] [facility] 09-09-2019 15:58-0500 BP Systolic 123 mm[Hg] [facility] 09-09-2019 15:58-0500 Height 152.4 cm [facility] 09-09-2019 15:58-0500 Pulse (Heart Rate) 72 /min [facility] 09-09-2019 15:58-0500 Pulse Oximetry 98 % [facility] 07-28-2019 10:31-0500 BMI (Body Mass Index) 49.14 kg/m2 [facility] 07-28-2019 10:31-0500 Body Temperature 97.9 [degF] [facility] 07-28-2019 10:31-0500 Body weight 114.13 kg [facility] 07-28-2019 10:31-0500 BP Diastolic 67 mm[Hg] [facility] 07-28-2019 10:31-0500 BP Systolic 115 mm[Hg] [facility] 07-28-2019 10:31-0500 Height 152.4 cm [facility] 07-28-2019 10:31-0500 Pulse (Heart Rate) 80 /min [facility] 07-28-2019 10:31-0500 Pulse Oximetry 95 % [facility] 04-12-2019 08:16-0400 Body Temperature 97.7 [degF] [facility] 04-12-2019 08:16-0400 BP Diastolic 69 mm[Hg] [facility] 04-12-2019 08:16-0400 BP Systolic 101 mm[Hg] [facility] 04-12-2019 08:16-0400 Pulse (Heart Rate) 78 /min [facility] 04-12-2019 08:16-0400 Pulse Oximetry 95 % [facility] 04-12-2019 08:16-0400 Respiratory Rate 16 /min [facility] 04-07-2019 09:29-0400 BMI (Body Mass Index) 48.24 kg/m2 [facility] 04-07-2019 09:29-0400 Body weight 112.04 kg [facility] 04-07-2019 09:29-0400 Height 152.4 cm [facility] 02-10-2019 08:23-0400 Body Temperature 97.9 [degF] [facility] 02-10-2019 08:23-0400 BP Diastolic 76 mm[Hg] [facility] 02-10-2019 08:23-0400 BP Systolic 107 mm[Hg] [facility] 02-10-2019 08:23-0400 Pulse (Heart Rate) 71 /min [facility] 02-10-2019 08:23-0400 Pulse Oximetry 98 % [facility] 02-10-2019 08:23-0400 Respiratory Rate 15 /min [facility] 02-03-[facility] 13:56-0400 BMI (Body Mass Index) 48.24 kg/m2 [facility] 02-03-2019 13:56-0400 Height 152.4 cm [facility] 02-03-2019 13:56-0400 Weight 112.04 kg [facility] 02-03-2019 11:33-0400 BMI (Body Mass Index) 48.24 kg/m2 [facility] 02-03-2019 11:33-0400 BP Diastolic 81 mm[Hg] [facility] 02-03-2019 11:33-0400 BP Systolic 123 mm[Hg] [facility] 02-03-2019 11:33-0400 Height 152.4 cm [facility] 02-03-2019 11:33-0400 Pulse (Heart Rate) 85 /min [facility] 02-03-2019 11:33-0400 Weight 112.04 kg [facility] 01-11-2019 17:06-0400 Body Temperature 98.2 [degF] [facility] [facility] 01-11-2019 17:06-0400 BP Diastolic 72 mm[Hg] [facility] 01-11-2019 17:06-0400 BP Systolic 122 mm[Hg] [facility] 01-11-2019 17:06-0400 Pulse (Heart Rate) 97 /min [facility] 01-11-2019 17:06-0400 Pulse Oximetry 94 % [facility] 01-07-2019 09:43-0400 BMI (Body Mass Index) 48.24 kg/m2 [facility] 01-07-2019 09:43-0400 BP Diastolic 75 mm[Hg] [facility] 01-07-2019 09:43-0400 BP Systolic 110 mm[Hg] [facility] 01-07-2019 09:43-0400 Height 152.4 cm [facility] 01-07-2019 09:43-0400 Pulse (Heart Rate) 79 /min [facility] 01-07-2019 09:43-0400 Pulse Oximetry 95 % [facility] 01-07-2019 09:43-0400 Weight 112.04 kg [facility] 10-26-2018 10:10-0500 Body Temperature 97.59 [degF] Counts include 234 beds at the [facility] 10-26-2018 10:10-0500 BP Diastolic 53 mm[Hg] Counts include 234 beds at the [facility] 10-26-2018 10:10-0500 BP Systolic 85 mm[Hg] Counts include 234 beds at the [facility] 10-26-2018 10:10-0500 Pulse (Heart Rate) 66 /min Counts include 234 beds at the [facility] 10-26-2018 10:10-0500 Pulse Oximetry 97 % Counts include 234 beds at the [facility] 10-26-2018 10:10-0500 Respiratory Rate 16 /min Counts include 234 beds at the [facility] 10-07-2018 14:58-0500 BMI (Body Mass Index) 47.26 kg/m2 Counts include 234 beds at the [facility] 10-07-2018 14:58-0500 Height 152.4 cm Counts include 234 beds at the [facility] 10-07-2018 14:58-0500 Weight 109.77 kg Counts include 234 beds at the [facility] 03-31-2018 15:45-0400 BMI (Body Mass Index) 46.29 kg/m2 [facility] 03-31-2018 15:45-0400 Body Temperature 98.2 [degF] [facility] 03-31-2018 15:45-0400 BP Diastolic 88 mm[Hg] [facility] 03-31-2018 15:45-0400 BP Systolic 128 mm[Hg] [facility] 03-31-2018 15:45-0400 Height 152.4 cm [facility] 03-31-2018 15:45-0400 Pulse (Heart Rate) 73 /min [facility] 03-31-2018 15:45-0400 Pulse Oximetry 97 % [facility] 03-31-2018 15:45-0400 Weight 107.5 kg [facility] Encounters Encounter Date Encounter Type Care Provider Facility Start: 05-13-2022 Refill Beto chavira MD Work Phone: [facility] Comment on above: Vitamin D deficiency (Primary Dx) Start: 05-10-2022 End: 05-14-2022 ambulatory BETO KUSUM [facility] Start: 05-10-2022 End: 05-10-2022 Office outpatient visit 15 minutes Beto Andrade MD Work Phone: [facility] Comment on above: Non-seasonal allergi c rhinitis due to pollen (Primary Dx); Current mild episode of major depressive disorder without prior episode (HCC); Vitamin D deficiency Start: 05-06-2022 End: 05-07-[address] [facility] Start: 01-11-2022 End: 01-11-2022 [facility] [place] [facility] Start: 11-16-2021 End: 11-16-2021 ambulatory BETO KUSUM [facility] Start: 11-16-2021 End: 11-16-2021 Office outpatient visit 15 minutes Beto Andrade MD Work Phone: [facility] Comment on above: Current mild episode of major depressive disorder without prior episode (HCC) (Primary Dx); Non-seasonal allergic rhinitis due to pollen; Meralgia paresthetica, right lower limb Start: 11-07-2021 End: 11-07-2021 ambulatory BETO KUSUM [facility] Start: 11-07-2021 End: 11-07-2021 Office outpatient visit 15 minutes Margarette Hauser MD Work Phone: [facility] Comment on above: Chest pain at rest ( Primary Dx) Start: 11-06-2021 Refill Beto chavira MD Work Phone: [facility] Start: 11-01-2021 End: 11-02-[address] [facility] Start: 10-30-2021 End: 10-30-2021 [facility] Start: 10-08-2021 End: 10-08-2021 [facility] Start: 10-08-2021 End: 10-09-2021 [facility] Start: 09-28-2021 End: 09-28-2021 ambulatory [facility] Start: 09-28-2021 End: 09-28-2021 Office consultation new/estab patient 60 min Beto Andrade MD Work Phone: [facility] Comment on above: Chest pain at rest ( Primary Dx); Discomfort in chest Start: 09-11-2021 End: 09-11-2021 [facility] Start: 08-28-2021 End: 08-29-2021 [facility] Start: 08-28-2021 End: 08-28-2021 ambulatory [facility] Start: 08-28-2021 End: 08-28-2021 Office outpatient visit 15 minutes Beto Andrade MD Work Phone: [facility] Comment on above: Diarrhea, unspecifie d type (Primary Dx); Non-seasonal allergic rhinitis due to pollen; Current mild episode of major depressive disorder without prior episode (HCC); Discomfort in chest Start: 05-02-2021 End: 05-02-2021 Office outpatient visit 15 minutes Beto Andrade MD Work Phone: [facility] Comment on above: Current mild episode of major depressive disorder without prior episode (HCC) (Primary Dx); Non-seasonal allergic rhinitis due to pollen; Vitamin D deficiency; Encounter for screening for malignant neoplasm of breast, unspecified screening modality Start: 03-26-2021 End: 03-26-2021 [facility] Start: 03-16-2021 Patient encounter status Julienne Alcaraz RN [facility] Start: 03-16-2021 End: 03-16-2021 Transcribe Orders Julienne Alcaraz RN [facility] Comment on above: Encounter for prepro cedure screening laboratory testing for COVID-19 (Primary Dx) Start: 02-07-2021 End: 02-07-2021 Office outpatient visit 15 minutes Beto Andrade MD Work Phone: [facility] Comment on above: Routine check-up (Pr imary Dx); Vitamin D deficiency; Non-seasonal allergic rhinitis due to pollen; Current mild episode of major depressive disorder without prior episode (HCC) Start: 02-07-2021 End: 02-07-2021 Patient encounter status Beto Andrade MD Work Phone: [facility] Start: 10-12-2019 End: 10-12-2019 Documentation procedure Oanh Torres [facility] Comment on above: ED Follow-up Start: 10-11-2019 End: 10-11-2019 Emergency department patient visit Shana Aviles Work Phone: [facility] Emergency Department Comment on above: Panic Attack (Primar y Dx); Adjustment disorder, unspecified type Start: 10-11-2019 End: 10-11-2019 Subsequent hospital visit by physician Beto Andrade Work Phone: [facility] Comment on above: Neck pain Thoracic radiculopat hy Start: 09-09-2019 End: 09-09-2019 Office outpatient visit 15 minutes Beto Andrade Work Phone: [facility] Comment on above: Neck pain (Primary D x); Thoracic radiculopathy Start: 07-28-2019 End: 07-28-2019 Office outpatient visit 25 minutes Marta Gil Work Phone: [facility] Comment on above: Acute non-recurrent maxillary sinusitis (Primary Dx); Nonsmoker Start: 04-12-2019 End: 04-12-2019 Subsequent hospital visit by physician Reji Ugarte Work Phone: [facility] Comment on above: S/P carpal tunnel re lease (Primary Dx) Start: 03-29-2019 End: 03-29-2019 Postop follow up visit related to original px Reji Ugarte Work Phone: [facility] Plastic Surgery Comment on above: Bilateral carpal dylan sarita syndrome (Primary Dx) Start: 02-24-2019 End: 02-24-2019 Postop follow up visit related to original px Reji Ugarte Work Phone: [facility] Comment on above: Bilateral carpal dylan sarita syndrome (Primary Dx) Start: 02-10-2019 End: 02-10-2019 Patient encounter procedure Reji Ugarte Work Phone: [facility] Comment on above: S/P carpal tunnel re lease (Primary Dx) Start: 02-03-2019 End: 02-03-2019 Office consultation new/estab patient 40 min Reji Ugarte Work Phone: [facility] Comment on above: Bilateral carpal dylan sarita syndrome (Primary Dx) Start: 01-11-2019 End: 01-11-2019 Patient encounter procedure Moses Arvizu [facility] Comment on above: Cough (Primary Dx) Start: 01-07-2019 End: 01-07-2019 Office outpatient visit 15 minutes Marta Gil Work Phone: [facility] Comment on above: Non-seasonal allergi c rhinitis due to pollen (Primary Dx); Constipation, unspecified constipation type; Bilateral carpal tunnel syndrome; Vitamin D deficiency Start: 10-26-2018 End: 10-26-2018 Patient encounter procedure Pito Hill Work Phone: [facility] Start: 10-07-2018 End: 10-07-2018 Office outpatient new 20 minutes Pito Hill Work Phone: [facility] Gastroenterology Comment on above: Rectal bleeding (Lisa alessia Dx); History of colon polyps; Gastritis, presence of bleeding unspecified, unspecified chronicity, unspecified gastritis type; Depression, unspecified depression type Start: 03-31-2018 End: 03-31-2018 Office outpatient visit 15 minutes Beto nAdrade Work Phone: [facility] Procedures Date Procedure Procedure Detail Performing Clinician Start: 05-06-2022 Mammography Beto Andrade MD Work Phone: Start: 09-29-2021 Referral to cardiology service Beto Andrade MD Work Phone: Start: 08-28-2021 Ecg routine ecg w/least 12 lds w/i&r Beto Andrade MD Work Phone: Start: 10-11-2019 Radex spine cervical 4 or 5 views Beto Andrade Work Phone: Start: 10-11-2019 Radex spine thoracic 3 views Beto Andrade Work Phone: Start: 04-12-2019 Choriogonadotropin ( test) [Presence] in Urine Madalyn Galan Work Phone: Start: 04-12-2019 End: 04-12-2019 Glucose [Mass/volume] in Blood Endy Nur Work Phone: Start: 02-10-2019 End: 02-10-2019 Glucose [Mass/volume] in Blood Kaan Smith Work Phone: Start: 02-10-2019 Choriogonadotropin ( test) [Presence] in Urine Madalyn Galan Work Phone: Start: 01-11-2019 Streptococcus pyogenes antigen assay Beto Andrade Work Phone: Start: 10-26-2018 Colonoscopy Pito Hill Work Phone: Start: 10-26-2018 Choriogonadotropin ( test) [Presence] in Urine Pito Hill Work Phone: Start: 11-13-2017 Microscopic observation [Identifier] in Cervix by Cyto stain Pito Hill Plan of Treatment Date Care Activity Detail Author Start: 03-31-2028 Tetanus vaccination [facility] Start: 05-06-2023 Screening for malignant neoplasm of breast Mammogram [facility] Start: 08-28-2022 COVID-19 Vaccine (#1) COVID-19 Vaccine (#1) [facility] Comment on above: Postponed from 01/19/1981 (Patient Refus ed) Start: 08-28-2022 COVID-19 Vaccine (1) COVID-19 Vaccine (1) [facility] Comment on above: Postponed from 1985 (Patient Refus ed) Start: 08-13-2022 End: 05-13-2023 Vitamin D, 25-hydroxy measurement Vitamin D, Total, 25-OH Lab Routine Vitamin D deficiency Expected: 08/13/2022 (Approximate), Expires: 05/13/2023 [facility] Work Phone: Comment on above: Expected: 08/13/2022 (Approximate), Expi res: 05/13/2023 Start: 05-16-2022 Influenza vaccination Sequential Influenza Vaccine (#1) [facility] Start: 05-10-2022 End: 05-10-2023 Vitamin D, 25-hydroxy measurement [facility] Work Phone: Comment on above: Expected: 05/10/2022 (Approximate), Expi res: 05/10/2023 Start: 05-10-2022 End: 05-10-2022 Patient encounter procedure 05/10/2022 Office Visit Primary Care Beto Andrade MD [address] [place] [id number] [facility] Start: 03-14-2022 Influenza vaccination Sequential Influenza Vaccine (#1) [facility] Comment on above: Postponed from 05/16/2021 (Patient Refus ed) Start: 02-07-2022 Hepatitis C screening Hepatitis C Screening [facility] Comment on above: Postponed from 1998 (Patient Refus ed) Start: 02-07-2022 HIV screening HIV Screening [facility] Comment on above: Postponed from 1995 (Patient Refus ed) Start: 12-08-2021 Depression Remission Assessment (PHQ9) Depression Remission Assessment (PHQ9) [facility] Start: 12-04-2021 End: 12-04-2021 Patient encounter procedure 12/04/2021 Office Visit Primary Care Beto Andrade MD [address] [place] [address] [facility] Start: 11-16-2021 End: 11-16-2021 Patient encounter procedure 11/16/2021 Office Visit Primary Care Beto Andrade MD [address] [place] [address] [facility] Start: 11-07-2021 End: 11-07-2021 Patient encounter procedure 11/07/2021 Office Visit Cardiology Margarette Hauser MD [address] [place] [address] [facility] Start: 10-11-2021 End: 10-11-2021 Patient encounter procedure 10/11/2021 Appointment Cardiology Margarette Hauser MD [facility] [place] [address] [facility] Start: 10-08-2021 End: 10-08-2021 Patient encounter procedure 10/08/2021 Appointment Cardiology Margarette Hauser MD [address] [place] [address] [facility] Start: 09-28-2021 End: 09-28-2021 Patient encounter procedure 09/28/2021 Office Visit Cardiology Beto Andrade MD [address] [facility] [address] [place] [address], [place] [address] Margarette Hauser MD [address] [place] [address] [facility] Start: 08-28-2021 End: 08-28-2021 Patient encounter procedure 08/28/2021 Office Visit Primary Care Beto Andrade MD [address] [address] [facility] Start: 05-16-2021 Influenza vaccination [facility] Start: 05-16-2021 End: 05-16-2021 Patient encounter procedure [facility] Start: 05-02-2021 End: 05-02-2021 Patient encounter procedure 05/02/2021 Office Visit Primary Care Beto Andrade MD [address] [address] [phone] [facility] Start: 03-23-2021 End: 03-23-2021 Patient encounter procedure 03/23/2021 Office Visit Lab Santana Morgan MD [address] [place] [address] [phone] [facility] Start: 2020 Screening for malignant neoplasm of breast Mammogram [facility] Start: 2020 Screening mammography Mammogram [facility] Start: 11-25-2019 End: 11-25-2019 Office Visit 11/25/2019 Office Visit Primary Care Beto Andrade MD [address] [address] [phone] [facility] Start: 11-14-2019 Screening for malignant neoplasm of cervix PAP SMEAR [facility] Start: 05-16-2019 Influenza vaccination given [facility] Start: 04-26-2019 End: 04-26-2019 Follow-Up 04/26/2019 Follow-Up Plastic Surgery Reji Ugarte II, MD [address] [place] [address] [phone] [facility] Start: 03-31-2019 End: 03-31-2019 Office Visit 03/31/2019 Office Visit Primary Care Marta Gil PA-C [address] [address] [phone] [facility] Start: 03-29-2019 End: 03-29-2019 Office Visit 03/29/2019 Office Visit Plastic Surgery Reji Ugarte II, MD [address] [place] [address] [phone] [facility] Start: 02-25-2019 End: 02-25-2019 Office Visit 02/25/2019 Office Visit Plastic Surgery Reji Ugarte II, MD [address] [place] [address] [phone] [facility] Start: 02-24-2019 End: 02-24-2019 Follow-Up 02/24/2019 Follow-Up Plastic Surgery Reji Ugarte II, MD [address] [place] [address] [phone] [facility] Start: 02-10-2019 End: 02-10-2019 Hospital Encounter [facility] Comment on above: RIGHT HAND CARPAL TUNNEL RELEASE Start: 12-24-2018 End: 12-24-2018 Office Visit 12/24/2018 Office Visit Gastroenterology Pito Hill MD [address] [place] [address] [phone] [facility] Start: 06-16-2018 End: 06-16-2018 Ambulatory 06/16/2018 Office Visit Primary Care Beto Andrade MD [address] [address] [phone] [facility] Start: 05-16-2018 Influenza vaccination SEQUENTIAL INFLUENZA VACCINE (#1) [facility] Start: 05-16-2018 Influenza vaccination given SEQUENTIAL INFLUENZA VACCINE (#1) [facility] Start: 1998 Hepatitis C screening Hepatitis C Screening [facility] Start: 1995 HIV screening HIV Screening [facility] Start: 1992 COVID-19 Vaccine (1) COVID-19 Vaccine (1) [facility] Start: 1983 History and physical examination, annual for health maintenance Wellness Visit [facility] Start: 1980 Depression screening using PHQ-9 (Patient Health Questionnaire 9) score DEPRESSION SCREENING (PHQ9) [facility] Start: 1980 Screening mammography Mammogram [facility] End: 10-08-2019 Colonoscopy Colonoscopy Routine Rectal bleeding 1 Occurrences starting 10/07/2018 until 10/08/2019 [facility] Comment on above: 1 Occurrences starting 10/07/2018 until 10/08/2019 End: 10-07-2019 Complete blood count (hemogram) panel - Blood by Automated count CBC Routine Rectal bleeding 1 Occurrences starting 10/07/2018 until 10/07/2019 [facility] Comment on above: 1 Occurrences starting 10/07/2018 until 10/07/2019 End: 11-26-2022 Echocardiography Echocardiogram complete Echocardiography Routine Chest pain at rest 1 Occurrences starting 09/28/2021 until 11/26/2022 [facility] Comment on above: 1 Occurrences starting 09/28/2021 until 11/26/2022 End: 07-02-2022 MG Breast - bilateral Screening Mammography Screening Bilateral Imaging Routine Encounter For Screening For Malignant Neoplasm Of Breast, Unspecified Screening Modality 1 Occurrences starting 05/02/2021 until 07/02/2022 [facility] Comment on above: 1 Occurrences starting 05/02/2021 until 07/02/2022 Procedure on tissue specimen [facility] Comment on above: Once for 1 Occurrences starting 10/26/19 19, 1 completed End: 03-16-2022 SARS-CoV-2 (COVID-19) RdRp gene [Presence] in Respiratory specimen by MIREILLE with probe detection COVID-19, Molecular Microbiology Routine Encounter For Preprocedure Screening Laboratory Testing For Covid-19 1 Occurrences starting 03/16/2021 until 03/16/2022 [facility] Comment on above: 1 Occurrences starting 03/16/2021 until 03/16/2022 Standard chest X-ray XR Chest AP /PA and LAT Imaging Routine Discomfort in chest 08/28/2021 10:08 AM EST [facility] Work Phone: End: 11-26-2022 Stress test only, exercise Stress test only, exercise Cardiac Services Routine Chest pain at rest 1 Occurrences starting 09/28/2021 until 11/26/2022 [facility] Work Phone: Comment on above: 1 Occurrences starting 09/28/2021 until 11/26/2022 End: 05-02-2022 Vitamin D, 25-hydroxy measurement Vitamin D, Total, 25-OH Lab Routine Vitamin D deficiency 1 Occurrences starting 05/02/2021 until 05/02/2022 [facility] Work Phone: Comment on above: 1 Occurrences starting 05/02/2021 until 05/02/2022 End: 09-09-2020 XR Cervical Spine Complete 4-5 Views (Standard) XR Cervical Spine Complete 4-5 Views (Standard) Imaging Routine Neck pain 1 Occurrences starting 09/09/2019 until 09/09/2020 [facility] Comment on above: 1 Occurrences starting 09/09/2019 until 09/09/2020 End: 09-09-2020 XR Thoracic Spine 3 Views (Standard) XR Thoracic Spine 3 Views (Standard) Imaging Routine Thoracic radiculopathy 1 Occurrences starting 09/09/2019 until 09/09/2020 [facility] Comment on above: 1 Occurrences starting 09/09/2019 until 09/09/2020 Immunizations Immunization Date Immunization Notes Care Provider Nasir dillon 03-31-2018 tetanus toxoid, redu louis diphtheria toxoid, and acellular pertussis vaccine, adsorbed; Translations: [TDAP] Beto Andrade [facility] Payers Date Payer Category Payer Medicaid [facility] [place] xxxxxxxxxxxx 2015-Present xxxxxxxxxxxx [id number] 2015 Medicaid [id number] 2015 Medicaid [employer] ED[employer]ID [place] [id number] 2015-Present [phone] [address] [address] [place] [address] [id number] 2015 Medicaid [id number] 1980 Unknown [id number] 1980 Unknown [id number] [id number] 1980 Unknown [id number] [id number] 1980 Unknown [id number] [id number] 1980 Unknown [id number] [id number] 1980 Unknown [id number] [id number] 1980 Unknown [id number] [id number] 1980 Unknown [id number] [id number] 1980 Unknown [id number] [id number] 1980 Unknown [id number] [id number] 1980 Unknown [id number] [id number] 1980 Unknown [id number] [id number] 1980 Unknown [id number] [id number] 1980 Unknown [id number] [id number] 1980 Unknown [id number] [id number] 1980 Unknown [id number] Social History Date Type Detail Facility Start: 03-31-2018 End: 05-10-2022 Tobacco smoking status NHIS Never smoker [facility] Start: 1980 Sex Assigned At Not on file [facility] Start: 10-04-2015 Alcohol Comment 5 a month, wine [facility] Start: 09-09-2019 End: 11-16-2021 Alcohol intake Current drinker of alcohol (finding) [facility] Start: 02-07-2021 End: 05-10-2022 Tobacco use and exposure Never used [facility] Start: 10-01-2021 End: 05-10-2022 Exposure to SARS-CoV-2 (event) Not sure [facility] Start: 05-10-2022 Alcohol intake Ex-drinker (finding) [facility] Medical Equipment Procedure Code Equipment Code Equipment Origin al Text Equipment Identifier Dates Implant 22mm Mometasone Furoate 370mcg Dose Propel - [id number] Start: 01-13-2017 Implant 22mm Mometasone Furoate 370mcg Dose Propel - [id number] Start: 01-13-2017 Implant 22mm Mometasone Furoate 370mcg Dose Propel - [id number] Start: 01-13-2017 Implant 22mm Mometasone Furoate 370mcg Dose Propel - [id number] Start: 01-13-2017 Implant 22mm Mometasone Furoate 370mcg Dose Propel - [id number] Start: 01-13-2017 Implant 22mm Mometasone Furoate 370mcg Dose Propel - [id number] Start: 01-13-2017 Implant 22mm Mometasone Furoate 370mcg Dose Propel - [id number] Start: 01-13-2017 Implant 22mm Mometasone Furoate 370mcg Dose Propel - [id number] Start: 01-13-2017 Implant 22mm Mometasone Furoate 370mcg Dose Propel - [id number] Start: 01-13-2017 Implant 22mm Mometasone Furoate 370mcg Dose Propel - [id number] Start: 01-13-2017 Implant 22mm Mometasone Furoate 370mcg Dose Propel - [id number] Start: 01-13-2017 Implant 22mm Mometasone Furoate 370mcg Dose Propel - [id number] Start: 01-13-2017 Clinical Notes 02-07-2021 to 05-13-2022 Telephone Encounter - Clarissa Forte LPN - 05/13/2022 4:31 PM EDTTelephone Encounter - Clarissa Forte LPN - 05/13/2022 4:31 PM EDTBeto Andrade MD - 05/10/2022 9:05 AM EDT Note Date & Type Note Facility 05-13-2022 Telephone encount er Note FYI: Patient informed of change in Vit D to 5000 units daily and lab work in 3 months.. Pharmacist contacted to give verbal order to cancel Vit D2 50,000 units and start Vit D3 5000 units daily #30 with 3 refills. Spoke too Marta Pharmacist. [facility] 05-13-2022 Miscellaneous Notes Formattin g of this note might be different from the original. FYI: Patient informed of change in Vit D to 5000 units daily and lab work in 3 months.. Pharmacist contacted to give verbal order to cancel Vit D2 50,000 units and start Vit D3 5000 units daily #30 with 3 refills. Spoke too Marta Pharmacist. FYI: Patient had a poor connection during call. Patient stated that she had been out of Vit D2 prior to lab work. Call was disconnected. Call to patient, leatha left, giving direct number and informing patient that a refill of Vit D2 was sent to pharmacy. Patient is to call office to give Nurse when patient restarted on Vit D2. Will check with doctor to get recommendations of checking Vit D2. ----- Message from Beto Andrade MD sent at 05/12/2022 7:27 PM EDT ----- Chk vit d replcement documented in this encounter [facility] 05-13-2022 Telephone encount er Note FYI: Patient had a poor connection during call. Patient stated that she had been out of Vit D2 prior to lab work. Call was disconnected. Call to patient, left, giving direct number and informing patient that a refill of Vit D2 was sent to pharmacy. Patient is to call office to give Nurse when patient restarted on Vit D2. Will check with doctor to get recommendations of checking Vit D2. [facility] 05-13-2022 Telephone encount er Note ----- Message from Beto Andrade MD sent at 05/12/2022 7:27 PM EDT ----- Chk vit d replcement [facility] 05-10-2022 History of Presen t illness Narrative Jes Caldwell 41 y.o. HPI WITH ASSESSMENT AND PLAN (dictation): The patient without any complaints at this time. Has lost another 12 pounds of weight. Is exercising more often has she had a change in career. ASSESSMENT AND PLAN 1.The patient with allergic rhinitis. Continue Flonase 2 sprays in each nostril once a day. 2.For the vitamin D deficiency, she is taking 50,000 units a week. We will check a vitamin D level now. 3.For the depression, is doing well with Alessia Arvizu on Lexapro 10 mg once a day along with hydroxyzine 50 mg at bedtime. Advised the patient I will see her back in my office about 6 months from now. Goals Addressed None VISIT SUMMARY: Diagnoses and all orders for this visit: Non-seasonal allergic rhinitis due to pollen Current mild episode of major depressive disorder without prior episode (HCC) Other orders - ergocalciferol (Vitamin D2) 1,250 mcg (50,000 unit) capsule; Take 1 (one) capsule (50,000 Units total) by mouth once a week . Condition and plan discussed with patient in detail, patient agrees with plan. Risk, benefits, and side effects of medicines discussed with the patient, patient agrees with plan. Most recent laboratory (CBC, Hepatic, Renal, Thyroid and Lipid panel) were reviewed, addressed and were found to be satisfactory other than what has been noted above in the A&P. Most recent radiology imaging, and other study results were reviewed and discussed with patient. For any new medications prescribed today, patient was educated about indications for the medication, how to take the medication and potential side effects of the medications. Patient to return to office: No follow-ups on file. The following portions of the patient's history were reviewed and updated as appropriate: allergies, current medications, past family history, past medical history, past social history, past surgical history and problem list. Past History Past Medical History: Diagnosis Date Anxiety Arthritis bursitis in hips Cancer ([facility]) ca cells on cervix, dr's watching Chronic pain disorder something hurts daily Chronic sinus infection Colon polyp Constipation since taking paxil COPD (chronic obstructive pulmonary disease) ([facility]) gets bronchitis yearly Depression Headache hx migraines Herpes History of blood transfusion 10 yrs ago after csection 2004 HL (hearing loss) ear drum from fluid ruptured 2016 HPV (human papilloma virus) anogenital infection 10/24/2015 Obesity 12/2016 BMI 46, frustrated, gained weight with 4 foot surgeries and lack of 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,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 Peripheral neuropathy legs, side of theighs Plantar fasciitis, bilateral has tried many treatments, plan surgery 10/13/[address] foot Rectal bleeding Past Surgical History: Procedure Laterality Date ADENOIDECTOMY 6 years old CARPAL TUNNEL RELEASE OPEN Right 02/10/2019 Procedure: RIGHT HAND CARPAL TUNNEL RELEASE; Surgeon: Reji Ugarte II, MD; Location: [facility] Main OR; Service: Plastics CARPAL TUNNEL RELEASE OPEN Left 04/12/2019 Procedure: RELEASE CARPAL TUNNEL LEFT HAND; Surgeon: Reji Ugarte II, MD; Location: [facility] Main OR; Service: Plastics SECTION 2005 SECTION, CLASSIC COLONOSCOPY N/A 05/02/2016 Procedure: COLONOSCOPY; Surgeon: Tulio Gunn MD; Location: [facility] Endo; Service: COLONOSCOPY 10/2018 COLONOSCOPY N/A 10/26/2018 Procedure: COLONOSCOPY WITH ANESTHESIA; Surgeon: Pito Hill MD; Location: [facility] Endo; Service: Gastroenterology D&C (DIL & CURETTAGE, SHARP W/ SUCTION) 2013 EGD N/A 05/02/2016 Procedure: EGD; Surgeon: Tulio Gunn MD; Location: [facility] Endo; Service: ENDOSCOPY SINUS,SEPTO-NASAL RECONSTRUCTION N/A 01/13/2017 Procedure: ENDOSCOPIC SINUS SURGERY; Surgeon: Dioni Desouza MD; Location: [facility] Main OR; Service: FASCIECTOMY PLANTAR Right 10/13/2015 Procedure: FASCIECTOMY PLANTAR W TOPAZ RT; Surgeon: Ignacio Rabago DPM; Location: [facility] Main OR; Service: FASCIECTOMY PLANTAR Left 11/03/2015 Procedure: FASCIECTOMY PLANTAR WITH TOPAZ LEFT; Surgeon: Ignacio Rabago DPM; Location: [facility] Main OR; Service: FOOT SURGERY Bilateral 2014 shock wave therapy for platar fasciitis REPAIR SEPTUM NASAL N/A 01/13/2017 Procedure: REPAIR SEPTUM NASAL; Surgeon: Dioni Desouza MD; Location: [facility] Main OR; Service: TONSILLECTOMY 6 years old TUBAL LIGATION 2017 Current Outpatient Medications Medication Sig Dispense Refill acyclovir (ZOVIRAX) 400 MG tablet Take 400 mg by mouth 2 (two) times a day escitalopram oxalate (LEXAPRO) 10 MG tablet Take 1 (one) tablet (10 mg total) by mouth daily . fluticasone propionate (FLONASE) 50 mcg/actuation nasal spray Instill 2 (two) sprays into each nostril daily . 16 g 3 hydrOXYzine (ATARAX) 50 MG tablet Take 1 (one) tablet (50 mg total) by mouth at bedtime . ibuprofen (ADVIL,MOTRIN) 800 MG tablet Take 800 mg by mouth every 8 (eight) hours as needed. 1 multivitamin (THERAGRAN) per tablet 1 tablet daily ergocalciferol (Vitamin D2) 1,250 mcg (50,000 unit) capsule Take 1 (one) capsule (50,000 Units total) by mouth once a week . 12 capsule 1 No current facility-administered medications for this visit. Allergies Allergen Reactions Hydrocodone-Acetaminophen GI Intolerance N/v Vicodon Percocet [Oxycodone-Acetaminophen] GI Intolerance Nausea/vomiting Tobacco History: reports that she has never smoked. She has never used smokeless tobacco. She reports that she does not currently use alcohol. She reports that she does not use drugs. reports that she has never smoked. She has never used smokeless tobacco. Counseling given: Not Answered ROS: Review of Systems Constitutional: Negative for activity change, appetite change, fatigue, fever and unexpected weight change. HENT: Negative for hearing loss. Eyes: Negative for visual disturbance. Respiratory: Negative for chest tightness, shortness of breath and wheezing. Cardiovascular: Negative for chest pain, palpitations and leg swelling. Gastrointestinal: Negative for abdominal pain and diarrhea. Endocrine: Negative for polydipsia. Genitourinary: Negative for flank pain. Musculoskeletal: Negative for gait problem and joint swelling. Skin: Negative for color change and rash. Neurological: Negative for dizziness, syncope, facial asymmetry and headaches. Psychiatric/Behavioral: Negative for agitation and behavioral problems. PHYSICAL EXAM : Vitals: 05/10/22 0846 BP: 104/70 BP Location: Left arm Patient Position: Sitting BP Cuff Size: X-large Adult Pulse: 79 Temp: 97.9 F (36.6 C) TempSrc: Infrared SpO2: 98% Weight: 103.4 kg (228 lb) Height: 5' Physical Exam Vitals and nursing note reviewed. Constitutional: General: She is not in acute distress. Appearance: Normal appearance. She is well-developed. She is not diaphoretic. HENT: Head: Normocephalic and atraumatic. Eyes: Conjunctiva/sclera: Conjunctivae normal. Pupils: Pupils are equal, round, and reactive to light. Neck: Thyroid: No thyromegaly. Cardiovascular: Rate and Rhythm: Normal rate and regular rhythm. Heart sounds: Normal heart sounds. No murmur heard. Pulmonary: Effort: Pulmonary effort is normal. Breath sounds: Normal breath sounds. No wheezing. Musculoskeletal: Cervical back: Neck supple. Lymphadenopathy: Cervical: No cervical adenopathy. Skin: General: Skin is warm and dry. Neurological: General: No focal deficit present. Mental Status: She is alert and oriented to person, place, and time. Mental status is at baseline. documented in this encounter [facility] 11-16-2021 History of Presen t illness Narrative Jes Caldwell 41 y.o. HPI WITH ASSESSMENT AND PLAN (dictation): Patient with discomfort, burning discomfort and numbness, on the lateral aspect of the right leg, right thigh. ASSESSMENT AND PLAN 1.Patient with possible meralgia paresthetica. We will have Dr. Jiang assess the patient for the same. 2.For the allergic rhinitis, continue the Flonase 2 sprays in each nostril once a day. 3.For the anxiety, she is just on hydroxyzine 10 mg 3 times a day as needed at this time. 4.There is no more chest pain at this time. I will see back in 6 months from now. Goals Addressed None VISIT SUMMARY: Diagnoses and all orders for this visit: Current mild episode of major depressive disorder without prior episode (HCC) Non-seasonal allergic rhinitis due to pollen Condition and plan discussed with patient in detail, patient agrees with plan. Risk, benefits, and side effects of medicines discussed with the patient, patient agrees with plan. Most recent laboratory (CBC, Hepatic, Renal, Thyroid and Lipid panel) were reviewed, addressed and were found to be satisfactory other than what has been noted above in the A&P. Most recent radiology imaging, and other study results were reviewed and discussed with patient. For any new medications prescribed today, patient was educated about indications for the medication, how to take the medication and potential side effects of the medications. Patient to return to office: No follow-ups on file. The following portions of the patient's history were reviewed and updated as appropriate: allergies, current medications, past family history, past medical history, past social history, past surgical history and problem list. Past History Past Medical History: Diagnosis Date Anxiety Arthritis bursitis in hips Cancer ([facility]) ca cells on cervix, dr's watching Chronic pain disorder something hurts daily Chronic sinus infection Colon polyp Constipation since taking paxil COPD (chronic obstructive pulmonary disease) ([facility]) gets bronchitis yearly Depression Headache hx migraines Herpes History of blood transfusion 10 yrs ago after csection 2004 HL (hearing loss) ear drum from fluid ruptured 2016 HPV (human papilloma virus) anogenital infection 10/24/2015 Obesity 12/2016 BMI 46, frustrated, gained weight with 4 foot surgeries and lack of 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,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 Peripheral neuropathy legs, side of theighs Plantar fasciitis, bilateral has tried many treatments, plan surgery 10/13/15 on [address] foot Rectal bleeding Past Surgical History: Procedure Laterality Date ADENOIDECTOMY 6 years old CARPAL TUNNEL RELEASE OPEN Right 02/10/2019 Procedure: RIGHT HAND CARPAL TUNNEL RELEASE; Surgeon: Reji Ugarte II, MD; Location: [facility] Main OR; Service: Plastics CARPAL TUNNEL RELEASE OPEN Left 04/12/2019 Procedure: RELEASE CARPAL TUNNEL LEFT HAND; Surgeon: Reji Ugarte II, MD; Location: [facility] Main OR; Service: Plastics SECTION 2004 COLONOSCOPY N/A 05/02/2016 Procedure: COLONOSCOPY; Surgeon: Tulio Gunn MD; Location: [facility] Endo; Service: COLONOSCOPY 10/2018 COLONOSCOPY N/A 10/26/2018 Procedure: COLONOSCOPY WITH ANESTHESIA; Surgeon: Pito Hill MD; Location: [facility] Endo; Service: Gastroenterology D&C (DIL & CURETTAGE, SHARP W/ SUCTION) 2013 EGD N/A 05/02/2016 Procedure: EGD; Surgeon: Tulio Gunn MD; Location: [facility] Endo; Service: ENDOSCOPY SINUS,SEPTO-NASAL RECONSTRUCTION N/A 01/13/2017 Procedure: ENDOSCOPIC SINUS SURGERY; Surgeon: Dioni Desouza MD; Location: [facility] Main OR; Service: FASCIECTOMY PLANTAR Right 10/13/2015 Procedure: FASCIECTOMY PLANTAR W TOPAZ RT; Surgeon: Ignacio Rabago DPM; Location: [facility] Main OR; Service: FASCIECTOMY PLANTAR Left 11/03/2015 Procedure: FASCIECTOMY PLANTAR WITH TOPAZ LEFT; Surgeon: Ignacio Rabago DPM; Location: [facility] Main OR; Service: FOOT SURGERY Bilateral 2015 shock wave therapy for platar fasciitis REPAIR SEPTUM NASAL N/A 01/13/2017 Procedure: REPAIR SEPTUM NASAL; Surgeon: Dioni Desouza MD; Location: [facility] Main OR; Service: TONSILLECTOMY 6 years old TUBAL LIGATION 2017 Current Outpatient Medications Medication Sig Dispense Refill acyclovir (ZOVIRAX) 400 MG tablet Take 400 mg by mouth 2 (two) times a day ergocalciferol (Vitamin D2) 1,250 mcg (50,000 unit) capsule Take 1 (one) capsule (50,000 Units total) by mouth once a week . 12 capsule 0 fluticasone propionate (FLONASE) 50 mcg/actuation nasal spray Instill 2 (two) sprays into each nostril daily . 16 g 3 hydrOXYzine (ATARAX) 10 MG tablet Take 10 mg by mouth 3 (three) times a day as needed CHEPE . ibuprofen (ADVIL,MOTRIN) 800 MG tablet Take 800 mg by mouth every 8 (eight) hours as needed. 1 multivitamin (THERAGRAN) per tablet 1 tablet daily No current facility-administered medications for this visit. Allergies Allergen Reactions Hydrocodone-Acetaminophen GI Intolerance N/v Vicodon Percocet [Oxycodone-Acetaminophen] GI Intolerance Nausea/vomiting Tobacco History: reports that she has never smoked. She has never used smokeless tobacco. She reports current alcohol use. She reports that she does not use drugs. reports that she has never smoked. She has never used smokeless tobacco. Counseling given: Not Answered ROS: Review of Systems Constitutional: Negative for activity change, appetite change, fatigue, fever and unexpected weight change. HENT: Negative for hearing loss. Eyes: Negative for visual disturbance. Respiratory: Negative for chest tightness, shortness of breath and wheezing. Cardiovascular: Negative for chest pain, palpitations and leg swelling. Gastrointestinal: Negative for abdominal pain and diarrhea. Endocrine: Negative for polydipsia. Genitourinary: Negative for flank pain. Musculoskeletal: Negative for gait problem and joint swelling. Skin: Negative for color change and rash. Neurological: Negative for dizziness, syncope, facial asymmetry and headaches. Psychiatric/Behavioral: Negative for agitation and behavioral problems. PHYSICAL EXAM : Vitals: 11/16/21 1022 BP: 107/63 BP Location: Right arm Patient Position: Sitting BP Cuff Size: X-large Adult Pulse: 63 SpO2: 96% Weight: 108.4 kg (239 lb) Height: 5' Physical Exam Vitals and nursing note reviewed. Constitutional: General: She is not in acute distress. Appearance: Normal appearance. She is well-developed. She is not diaphoretic. HENT: Head: Normocephalic and atraumatic. Eyes: Conjunctiva/sclera: Conjunctivae normal. Pupils: Pupils are equal, round, and reactive to light. Neck: Thyroid: No thyromegaly. Cardiovascular: Rate and Rhythm: Normal rate and regular rhythm. Heart sounds: Normal heart sounds. No murmur heard. Pulmonary: Effort: Pulmonary effort is normal. Breath sounds: Normal breath sounds. No wheezing. Musculoskeletal: Cervical back: Neck supple. Lymphadenopathy: Cervical: No cervical adenopathy. Skin: General: Skin is warm and dry. Neurological: Mental Status: She is alert and oriented to person, place, and time. documented in this encounter [facility] 11-08-2021 History of Presen t illness Narrative ASSESSMENT: Chest pain at rest She is having recurrent chest pain for two weeks. It is located in the substernal and precordial regions. It is non-radiating. There is no relationship of chest pain with physical activity, food intake or deep breathing. Usually it lasts for 20-30 minutes at a time. It is of moderate in intensity, level 7/10. Chest pain is described as aching and pressure sensation. EKG - Normal sinus rhythm. Nonspecific ST-T wave changes. I explained the findings of test results to patient. Likelihood of any significant coronary artery disease is low. I am recommending to continue and optimize medical therapy according to patient's response and tolerance. PLAN AND RECOMMENDATIONS: I discussed with the patient and answered questions to the best of my ability. I personally reviewed the recent laboratory and radiological reports. I reviewed the current medications with patient. Reconcilliation of current medications was performed in the electronic medical record (EMR). Patient told me that she is adhering to the medical regimen prescribed. Plan as above. She seems to understand and agrees. I am also recommending to continue and optimize current cardiovascular medications as per patient's response and tolerance. Diet and exercise programs were discussed as per [place] [employer] (ACC)/[place] [employer] (AHA) guidelines. The patient will have regular follow up with primary care provider (PCP). SUBJECTIVE: Jes Caldwell is an 41 y.o. female that has a past medical history of Anxiety, Arthritis, Cancer (HCC), Chronic pain disorder, Chronic sinus infection, Colon polyp, Constipation, COPD (chronic obstructive pulmonary disease) (HCC), Depression, Headache, Herpes, History of blood transfusion, HL (hearing loss), HPV (human papilloma virus) anogenital infection (10/24/2015), Obesity (12/2016), Peripheral neuropathy, Plantar fasciitis, bilateral, and Rectal bleeding. She presents for evaluation and management, at the request of PCP, for the evaluation of chest pain. She is complaining of recurrent chest pain yes. Chest pain is located in the substernal and precordial region. Chest pain is non-radiating yes. There is no throat tightness, jaw pain or arm pain. Inter-scapular pain no. Diaphoresis no. Dyspnea no. Orthopnea or paroxysmal nocturnal dyspnea (PND) no. Palpitation, dizziness or syncope no. Pedal edema no. Recent fever or chills no. Chest trauma no. Redness in eyes no. Rhinorrhea no. Sore throat no. Patient had cardiac evaluations. Patient was in the clinic for review of test results and further recommendations. PAST MEDICAL/SURGICAL HISTORY: Past Medical History: Diagnosis Date Anxiety Arthritis bursitis in hips Cancer (HCC) ca cells on cervix, dr's watching Chronic pain disorder something hurts daily Chronic sinus infection Colon polyp Constipation since taking paxil COPD (chronic obstructive pulmonary disease) (HCC) gets bronchitis yearly Depression Headache hx migraines Herpes History of blood transfusion 10 yrs ago after csection 2004 HL (hearing loss) ear drum from fluid ruptured 2016 HPV (human papilloma virus) anogenital infection 10/24/2015 Obesity 12/2016 BMI 46, frustrated, gained weight with 4 foot surgeries and lack of 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,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 Peripheral neuropathy legs, side of theighs Plantar fasciitis, bilateral has tried many treatments, plan surgery 10/13/15 on [address] foot Rectal bleeding Past Surgical History: Procedure Laterality Date ADENOIDECTOMY 6 years old CARPAL TUNNEL RELEASE OPEN Right 02/10/2019 Procedure: RIGHT HAND CARPAL TUNNEL RELEASE; Surgeon: Reji Ugarte II, MD; Location: [facility] Main OR; Service: Plastics CARPAL TUNNEL RELEASE OPEN Left 04/12/2019 Procedure: RELEASE CARPAL TUNNEL LEFT HAND; Surgeon: Reji Ugarte II, MD; Location: [facility] Main OR; Service: Plastics SECTION 2004 COLONOSCOPY N/A 05/02/2016 Procedure: COLONOSCOPY; Surgeon: Tulio Gunn MD; Location: [facility] Endo; Service: COLONOSCOPY 10/2018 COLONOSCOPY N/A 10/26/2018 Procedure: COLONOSCOPY WITH ANESTHESIA; Surgeon: Pito Hill MD; Location: [facility] Endo; Service: Gastroenterology D&C (DIL & CURETTAGE, SHARP W/ SUCTION) 2013 EGD N/A 05/02/2016 Procedure: EGD; Surgeon: Tulio Gunn MD; Location: [facility] Endo; Service: ENDOSCOPY SINUS,SEPTO-NASAL RECONSTRUCTION N/A 01/13/2017 Procedure: ENDOSCOPIC SINUS SURGERY; Surgeon: Dioni Desouza MD; Location: [facility] Main OR; Service: FASCIECTOMY PLANTAR Right 10/13/2015 Procedure: FASCIECTOMY PLANTAR W TOPAZ RT; Surgeon: Ignacio Rabago DPM; Location: [facility] Main OR; Service: FASCIECTOMY PLANTAR Left 11/03/2015 Procedure: FASCIECTOMY PLANTAR WITH TOPAZ LEFT; Surgeon: Ignacio Rabago DPM; Location: [facility] Main OR; Service: FOOT SURGERY Bilateral 2015 shock wave therapy for platar fasciitis REPAIR SEPTUM NASAL N/A 01/13/2017 Procedure: REPAIR SEPTUM NASAL; Surgeon: Dioni Desouza MD; Location: [facility] Main OR; Service: TONSILLECTOMY 6 years old TUBAL LIGATION 2017 PERSONAL HISTORY: Social History Tobacco Use Smoking Status Never Smoker Smokeless Tobacco Never Used Social History Substance and Sexual Activity Alcohol Use Yes Comment: 5 a month, wine SOCIAL HISTORY: Social History Socioeconomic History Marital status: Single Tobacco Use Smoking status: Never Smoker Smokeless tobacco: Never Used Vaping Use Vaping Use: Never used Substance and Sexual Activity Alcohol use: Yes Comment: 5 a month, wine Drug use: No Sexual activity: Never FAMILY HISTORY OF PREMATURE CORONARY ARTERY DISEASE: Family History Problem Relation Age of Onset COPD Mother Cancer Mother Heart failure Mother COPD Father Cancer Maternal Grandmother Stroke Maternal Grandmother Cancer Maternal Grandfather Cancer Paternal Grandmother Diabetes Paternal Grandmother COPD Paternal Grandfather Cancer Paternal Grandfather Family history is negative for premature coronary artery disease. CURRENT MEDICATIONS: Current Outpatient Medications: acyclovir (ZOVIRAX) 400 MG tablet, Take 400 mg by mouth 2 (two) times a day , Disp: , Rfl: fluticasone propionate (FLONASE) 50 mcg/actuation nasal spray, Instill 2 (two) sprays into each nostril daily ., Disp: 16 g, Rfl: 3 ibuprofen (ADVIL,MOTRIN) 800 MG tablet, Take 800 mg by mouth every 8 (eight) hours as needed., Disp: , Rfl: 1 multivitamin (THERAGRAN) per tablet, 1 tablet daily , Disp: , Rfl: ergocalciferol (Vitamin D2) 1,250 mcg (50,000 unit) capsule, Take 1 (one) capsule (50,000 Units total) by mouth once a week . (Patient not taking: Reported on 11/07/2021 .), Disp: 12 capsule, Rfl: 0 escitalopram oxalate (LEXAPRO) 20 MG tablet, Take 20 mg by mouth daily ., Disp: , Rfl: hydrOXYzine (ATARAX) 10 MG tablet, , Disp: , Rfl: ALLERGIES: Allergies Allergen Reactions Hydrocodone-Acetaminophen GI Intolerance N/v Vicodon Percocet [Oxycodone-Acetaminophen] GI Intolerance Nausea/vomiting CARDIAC RISK FACTORS: Hypertension No , Diabetes mellitus No , Smoking No, Hypercholesterolemia No. Family history of premature coronary artery disease No. REVIEW OF SYSTEMS (ROS): She is complaining of recurrent chest pain yes. Chest pain is located in the substernal and precordial region. Chest pain is non-radiating yes. There is no throat tightness, jaw pain or arm pain. Inter-scapular pain no. Diaphoresis no. Dyspnea no. Orthopnea or paroxysmal nocturnal dyspnea (PND) no. Palpitation, dizziness or syncope no. Pedal edema no. Recent fever or chills no. Chest trauma no. Redness in eyes no. Rhinorrhea no. Sore throat no. No involuntary weight loss. Pulmonary: No cough or hemoptysis. Gastrointestinal: Appetite is satisfactory. No abdominal pain, nausea, vomiting, diarrhea, hematemesis, melena or hematochezia. Musculoskeletal: No myalgia or arthralgia. No claudication in the legs. Genitourinary: No acute urinary symptoms. No hematuria. Neurological: No tremor. No symptoms of transient ischemic attack (TIA) or cerebrovascular accident (CVA) Integumentary: No skin rash. Psychological: He is not feeling depressed. Rest of review of systems (ROS) is normal. PHYSICAL EXAMINATION: BP 110/73 (BP Location: Left arm, Patient Position: Sitting, BP Cuff Size: Adult) Pulse 81 Ht 5' Wt 111.6 kg (246 lb) SpO2 94% BMI 48.04 kg/m , Body mass index is 48.04 kg/m . Patient is well nourished and well developed. General appearance is good. Patient is in no acute distress. Mood/affect - normal. Patient is oriented to time, place and person. Patient s judgement and insight in illness appears good. Gait is normal. There is no conjunctival or corneal injection. No xanthelasma. Oral mucosa is moist. Patient does not have dentures. Neck is supple. There is no jugular venous distension or thyromegaly. No lymphadenopathy in neck or axilla noted. Carotid upstrokes are symmetrical bilaterally. Skin turgor is normal. There is no skin rash. Respiratory efforts are non-labored without use of accessory muscles of respiration. Lungs are clear to percussion and auscultation. There is no adventitious sound. There is good air entry bilaterally. Heart rhythm is regular. There is no precordial thrill, parasternal heave or chest wall tenderness. Point of maximal cardiac impulse is located in the left fifth intercostal space, 2 cm inside the mid-clavicular line. The first heart sound is normal. The second heart sound is split. There is no murmur, gallop, rub or click. Abdomen is soft and non-tender. Bowel sounds are present. There is no hepato-splenomegaly. No abdominal bruit. No hernia. There is no ankle edema. Muscle tone and strength are normal and symmetrical bilaterally. Range of motion in the joints is satisfactory and symmetrical bilaterally. Capillary refills are normal. Femoral and pedal pulses are symmetrical bilaterally. No clubbing or cyanosis is noted in the digits. LABS AND RADIOLOGICAL REPORTS: I have personally and independently reviewed the labs/image/tracing and the results are as follows: EKG - Normal sinus rhythm. Nonspecific ST-T wave changes. Stress test - no ischemia. ECHO-DOPPLER study of heart - Normal left ventricular systolic function. No significant valvular heart disease. Margarette Hauser M.D.,F.A.C.C. documented in this encounter [facility] 09-29-2021 History of Presen t illness Narrative ASSESSMENT: Chest pain at rest She is having recurrent chest pain for two weeks. It is located in the substernal and precordial regions. It is non-radiating. There is no relationship of chest pain with physical activity, food intake or deep breathing. Usually it lasts for 20-30 minutes at a time. It is of moderate in intensity, level 7/10. Chest pain is described as aching and pressure sensation. EKG - Normal sinus rhythm. Nonspecific ST-T wave changes. I am recommending and ordered stress test and echocardiographic imaging of heart for evaluation. I am also recommending to continue and optimize medical therapy according to patient's response and tolerance. PLAN AND RECOMMENDATIONS: I discussed with the patient and answered questions to the best of my ability. I personally reviewed the recent laboratory and radiological reports. I reviewed the current medications with patient. Reconcilliation of current medications was performed in the electronic medical record (EMR). Patient told me that she is adhering to the medical regimen prescribed. Plan as above. She seems to understand and agrees. I am also recommending to continue and optimize current cardiovascular medications as per patient's response and tolerance. Diet and exercise programs were discussed as per [place] [employer] (ACC)/[place] [employer] (AHA) guidelines. I will see the patient for follow up after the investigational tests are completed. REASON FOR EVALUATION AND TREATMENT: Chief Complaint Patient presents with Chest Pain Patient presents in the office for chest pain, states that she feels like someone is jabbing their finger in her chest HISTORY OF PRESENT ILNESS: Jes Caldwell is an 41 y.o. female that has a past medical history of Anxiety, Arthritis, Cancer (HCC), Chronic pain disorder, Chronic sinus infection, Colon polyp, Constipation, COPD (chronic obstructive pulmonary disease) (HCC), Depression, Headache, Herpes, History of blood transfusion, HL (hearing loss), HPV (human papilloma virus) anogenital infection (10/24/2015), Obesity (12/2016), Peripheral neuropathy, Plantar fasciitis, bilateral, and Rectal bleeding. She presents for evaluation and management, at the request of PCP, for the evaluation of chest pain. She is complaining of recurrent chest pain yes. Chest pain is located in the substernal and precordial region. Chest pain is non-radiating yes. There is no throat tightness, jaw pain or arm pain. Inter-scapular pain no. Diaphoresis no. Dyspnea no. Orthopnea or paroxysmal nocturnal dyspnea (PND) no. Palpitation, dizziness or syncope no. Pedal edema no. Recent fever or chills no. Chest trauma no. Redness in eyes no. Rhinorrhea no. Sore throat no. PAST MEDICAL/SURGICAL HISTORY: Past Medical History: Diagnosis Date Anxiety Arthritis bursitis in hips Cancer (HCC) ca cells on cervix, dr's watching Chronic pain disorder something hurts daily Chronic sinus infection Colon polyp Constipation since taking paxil COPD (chronic obstructive pulmonary disease) (HCC) gets bronchitis yearly Depression Headache hx migraines Herpes History of blood transfusion 10 yrs ago after csection 2004 HL (hearing loss) ear drum from fluid ruptured 2016 HPV (human papilloma virus) anogenital infection 10/24/2015 Obesity 12/2016 BMI 46, frustrated, gained weight with 4 foot surgeries and lack of 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,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 Peripheral neuropathy legs, side of theighs Plantar fasciitis, bilateral has tried many treatments, plan surgery 10/13/[address] foot Rectal bleeding Past Surgical History: Procedure Laterality Date ADENOIDECTOMY 6 years old CARPAL TUNNEL RELEASE OPEN Right 02/10/2019 Procedure: RIGHT HAND CARPAL TUNNEL RELEASE; Surgeon: Reji Ugarte II, MD; Location: [facility] Main OR; Service: Plastics CARPAL TUNNEL RELEASE OPEN Left 04/12/2019 Procedure: RELEASE CARPAL TUNNEL LEFT HAND; Surgeon: Reji Ugarte II, MD; Location: [facility] Main OR; Service: Plastics SECTION 2004 COLONOSCOPY N/A 05/02/2016 Procedure: COLONOSCOPY; Surgeon: Tulio Gunn MD; Location: [facility] Endo; Service: COLONOSCOPY 10/2018 COLONOSCOPY N/A 10/26/2018 Procedure: COLONOSCOPY WITH ANESTHESIA; Surgeon: Pito Hill MD; Location: [facility] Endo; Service: Gastroenterology D&C (DIL & CURETTAGE, SHARP W/ SUCTION) 2013 EGD N/A 05/02/2016 Procedure: EGD; Surgeon: Tulio Gunn MD; Location: [facility] Endo; Service: ENDOSCOPY SINUS,SEPTO-NASAL RECONSTRUCTION N/A 01/13/2017 Procedure: ENDOSCOPIC SINUS SURGERY; Surgeon: Dioni Desouza MD; Location: [facility] Main OR; Service: FASCIECTOMY PLANTAR Right 10/13/2015 Procedure: FASCIECTOMY PLANTAR W TOPAZ RT; Surgeon: Ignacio Rabago DPM; Location: [facility] Main OR; Service: FASCIECTOMY PLANTAR Left 11/03/2015 Procedure: FASCIECTOMY PLANTAR WITH TOPAZ LEFT; Surgeon: Ignacio Rabago DPM; Location: [facility] Main OR; Service: FOOT SURGERY Bilateral 2014 shock wave therapy for platar fasciitis REPAIR SEPTUM NASAL N/A 01/13/2017 Procedure: REPAIR SEPTUM NASAL; Surgeon: Dioni Desouza MD; Location: [facility] Main OR; Service: TONSILLECTOMY 6 years old TUBAL LIGATION 2017 PERSONAL HISTORY: Social History Tobacco Use Smoking Status Never Smoker Smokeless Tobacco Never Used Social History Substance and Sexual Activity Alcohol Use Yes Comment: 5 a month, wine SOCIAL HISTORY: Social History Socioeconomic History Marital status: Single Tobacco Use Smoking status: Never Smoker Smokeless tobacco: Never Used Vaping Use Vaping Use: Never used Substance and Sexual Activity Alcohol use: Yes Comment: 5 a month, wine Drug use: No Sexual activity: Never FAMILY HISTORY OF PREMATURE CORONARY ARTERY DISEASE: Family History Problem Relation Age of Onset COPD Mother Cancer Mother Heart failure Mother COPD Father Cancer Maternal Grandmother Stroke Maternal Grandmother Cancer Maternal Grandfather Cancer Paternal Grandmother Diabetes Paternal Grandmother COPD Paternal Grandfather Cancer Paternal Grandfather Family history is negative for premature coronary artery disease. CURRENT MEDICATIONS: Current Outpatient Medications: acyclovir (ZOVIRAX) 400 MG tablet, Take 400 mg by mouth 2 (two) times a day , Disp: , Rfl: fluticasone propionate (FLONASE) 50 mcg/actuation nasal spray, Instill 2 (two) sprays into each nostril daily ., Disp: 16 g, Rfl: 3 hydrOXYzine (ATARAX) 10 MG tablet, , Disp: , Rfl: multivitamin (THERAGRAN) per tablet, 1 tablet daily , Disp: , Rfl: escitalopram oxalate (LEXAPRO) 20 MG tablet, Take 20 mg by mouth daily ., Disp: , Rfl: ibuprofen (ADVIL,MOTRIN) 800 MG tablet, Take 800 mg by mouth every 8 (eight) hours as needed., Disp: , Rfl: 1 ALLERGIES: Allergies Allergen Reactions Hydrocodone-Acetaminophen GI Intolerance N/v Vicodon Percocet [Oxycodone-Acetaminophen] GI Intolerance Nausea/vomiting CARDIAC RISK FACTORS: Hypertension No , Diabetes mellitus No , Smoking No, Hypercholesterolemia No. Family history of premature coronary artery disease No. REVIEW OF SYSTEMS (ROS): She is complaining of recurrent chest pain yes. Chest pain is located in the substernal and precordial region. Chest pain is non-radiating yes. There is no throat tightness, jaw pain or arm pain. Inter-scapular pain no. Diaphoresis no. Dyspnea no. Orthopnea or paroxysmal nocturnal dyspnea (PND) no. Palpitation, dizziness or syncope no. Pedal edema no. Recent fever or chills no. Chest trauma no. Redness in eyes no. Rhinorrhea no. Sore throat no. No involuntary weight loss. Pulmonary: No cough or hemoptysis. Gastrointestinal: Appetite is satisfactory. No abdominal pain, nausea, vomiting, diarrhea, hematemesis, melena or hematochezia. Musculoskeletal: No myalgia or arthralgia. No claudication in the legs. Genitourinary: No acute urinary symptoms. No hematuria. Neurological: No tremor. No symptoms of transient ischemic attack (TIA) or cerebrovascular accident (CVA) Integumentary: No skin rash. Psychological: He is not feeling depressed. Rest of review of systems (ROS) is normal. PHYSICAL EXAMINATION: BP 106/74 (BP Location: Left arm, Patient Position: Sitting, BP Cuff Size: X-large Adult) Pulse 74 Ht 5' Wt 111.6 kg (246 lb) SpO2 96% BMI 48.04 kg/m , Body mass index is 48.04 kg/m . Patient is well nourished and well developed. General appearance is good. Patient is in no acute distress. Mood/affect normal. Patient is oriented to time, place and person. Patient s judgement and insight in illness appears good. Gait is normal. There is no conjunctival or corneal injection. No xanthelasma. Oral mucosa is moist. Patient does not have dentures. Neck is supple. There is no jugular venous distension or thyromegaly. No lymphadenopathy in neck or axilla noted. Carotid upstrokes are symmetrical bilaterally. Skin turgor is normal. There is no skin rash. Respiratory efforts are non-labored without use of accessory muscles of respiration. Lungs are clear to percussion and auscultation. There is no adventitious sound. There is good air entry bilaterally. Heart rhythm is regular. There is no precordial thrill, parasternal heave or chest wall tenderness. Point of maximal cardiac impulse is located in the left fifth intercostal space, 2 cm inside the mid-clavicular line. The first heart sound is normal. The second heart sound is split. There is no murmur, gallop, rub or click. Abdomen is soft and non-tender. Bowel sounds are present. There is no hepato-splenomegaly. No abdominal bruit. No hernia. There is no ankle edema. Muscle tone and strength are normal and symmetrical bilaterally. Range of motion in the joints is satisfactory and symmetrical bilaterally. Capillary refills are normal. Femoral and pedal pulses are symmetrical bilaterally. No clubbing or cyanosis is noted in the digits. LABS AND RADIOLOGICAL REPORTS: I have personally and independently reviewed the labs/image/tracing and the results are as follows: EKG - Normal sinus rhythm. Nonspecific ST-T wave changes. Thank you for allowing me to participate in the care of this patient. Margarette Hauser M.D.,F.A.C.C. documented in this encounter [facility] 09-29-2021 Miscellaneous Notes Associated Problem(s): Chest pain at rest She is having recurrent chest pain for two weeks. It is located in the substernal and precordial regions. It is non-radiating. There is no relationship of chest pain with physical activity, food intake or deep breathing. Usually it lasts for 20-30 minutes at a time. It is of moderate in intensity, level 7/10. Chest pain is described as aching and pressure sensation. EKG - Normal sinus rhythm. Nonspecific ST-T wave changes. I am recommending and ordered stress test and echocardiographic imaging of heart for evaluation. I am also recommending to continue and optimize medical therapy according to patient's response and tolerance. documented in this encounter [facility] 09-28-2021 Instructions Margarette Hauser MD - 09/28/2021 11:17 AM EST Images from the original note were not included. Chest Pain: Care Instructions Your Care Instructions There are many things that can cause chest pain. Some are not serious and will get better on their own in a few days. But some kinds of chest pain need more testing and treatment. Your doctor may have recommended a follow-up visit in the next 8 to 12 hours. If you are not getting better, you may need more tests or treatment. Even though your doctor has released you, you still need to watch for any problems. The doctor carefully checked you, but sometimes problems can develop later. If you have new symptoms or if your symptoms do not get better, get medical care right away. If you have worse or different chest pain or pressure that lasts more than 5 minutes or you passed out (lost consciousness), call 911 or seek other emergency help right away. A medical visit is only one step in your treatment. Even if you feel better, you still need to do what your doctor recommends, such as going to all suggested follow-up appointments and taking medicines exactly as directed. This will help you recover and help prevent future problems. How can you care for yourself at home? Rest until you feel better. Take your medicine exactly as prescribed. Call your doctor if you think you are having a problem with your medicine. Do not drive after taking a prescription pain medicine. When should you call for help? Call 911 if: You passed out (lost consciousness). You have severe difficulty breathing. You have symptoms of a heart attack. These may include: ? Chest pain or pressure, or a strange feeling in your chest. ? Sweating. ? Shortness of breath. ? Nausea or vomiting. ? Pain, pressure, or a strange feeling in your back, neck, jaw, or upper belly or in one or both shoulders or arms. ? Lightheadedness or sudden weakness. ? A fast or irregular heartbeat. After you call 911, the compotype operator may tell you to chew 1 adult-strength or 2 to 4 low-dose aspirin. Wait for an ambulance. Do not try to drive yourself. Call your doctor today if: You have any trouble breathing. Your chest pain gets worse. You are dizzy or lightheaded, or you feel like you may faint. You are not getting better as expected. You are having new or different chest pain. Where can you learn more? Log into your personal health record on https://[employer] and enter A120 in the Education box to learn more about Chest Pain: Care Instructions. Current as of: March 15, 2021 Content Version: 13.1 [employer]. Care instructions adapted under license by your healthcare professional. If you have questions about a medical condition or this instruction, always ask your healthcare professional. [employer] disclaims any warranty or liability for your use of this information. documented in this encounter [facility] 08-28-2021 History of Presen t illness Narrative Jes Caldwell 41 y.o. HPI WITH ASSESSMENT AND PLAN (dictation): Goals Addressed None VISIT SUMMARY: Diagnoses and all orders for this visit: Diarrhea, unspecified type Non-seasonal allergic rhinitis due to pollen - fluticasone propionate (FLONASE) 50 mcg/actuation nasal spray; Instill 2 (two) sprays into each nostril daily . Current mild episode of major depressive disorder without prior episode (HCC) Discomfort in chest - ECG 12 Lead - XR Chest AP/PA and LAT; Future - Ambulatory referral to Cardiology; Future Condition and plan discussed with patient in detail, patient agrees with plan. Risk, benefits, and side effects of medicines discussed with the patient, patient agrees with plan. Most recent laboratory (CBC, Hepatic, Renal, Thyroid and Lipid panel) were reviewed, addressed and were found to be satisfactory other than what has been noted above in the A&P. Most recent radiology imaging, and other study results were reviewed and discussed with patient. For any new medications prescribed today, patient was educated about indications for the medication, how to take the medication and potential side effects of the medications. Patient to return to office: No follow-ups on file. The following portions of the patient's history were reviewed and updated as appropriate: allergies, current medications, past family history, past medical history, past social history, past surgical history and problem list. Past History Past Medical History: Diagnosis Date Anxiety Arthritis bursitis in hips Cancer (HCC) ca cells on cervix, dr's watching Chronic pain disorder something hurts daily Chronic sinus infection Colon polyp Constipation since taking paxil COPD (chronic obstructive pulmonary disease) (HCC) gets bronchitis yearly Depression Headache hx migraines Herpes History of blood transfusion 10 yrs ago after csection 2004 HL (hearing loss) ear drum from fluid ruptured 2016 HPV (human papilloma virus) anogenital infection 10/24/2015 Obesity 12/2016 BMI 46, frustrated, gained weight with 4 foot surgeries and lack of 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,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 Peripheral neuropathy legs, 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 of theighs Plantar fasciitis, bilateral has tried many treatments, plan surgery 10/13/15 on [address] foot Rectal bleeding Past Surgical History: Procedure Laterality Date ADENOIDECTOMY 6 years old CARPAL TUNNEL RELEASE OPEN Right 02/10/2019 Procedure: RIGHT HAND CARPAL TUNNEL RELEASE; Surgeon: Reji Ugarte II, MD; Location: [facility] Main OR; Service: Plastics CARPAL TUNNEL RELEASE OPEN Left 04/12/2019 Procedure: RELEASE CARPAL TUNNEL LEFT HAND; Surgeon: Reji Ugarte II, MD; Location: [facility] Main OR; Service: Plastics SECTION 2004 COLONOSCOPY N/A 05/02/2016 Procedure: COLONOSCOPY; Surgeon: Tulio Gunn MD; Location: [facility] Endo; Service: COLONOSCOPY 10/2018 COLONOSCOPY N/A 10/26/2018 Procedure: COLONOSCOPY WITH ANESTHESIA; Surgeon: Pito Hill MD; Location: [facility] Endo; Service: Gastroenterology D&C (DIL & CURETTAGE, SHARP W/ SUCTION) 2013 EGD N/A 05/02/2016 Procedure: EGD; Surgeon: Tulio Gunn MD; Location: [facility] Endo; Service: ENDOSCOPY SINUS,SEPTO-NASAL RECONSTRUCTION N/A 01/13/2017 Procedure: ENDOSCOPIC SINUS SURGERY; Surgeon: Dioni Desouza MD; Location: [facility] Main OR; Service: FASCIECTOMY PLANTAR Right 10/13/2015 Procedure: FASCIECTOMY PLANTAR W TOPAZ RT; Surgeon: Ignacio Rabago DPM; Location: [facility] Main OR; Service: FASCIECTOMY PLANTAR Left 11/03/2015 Procedure: FASCIECTOMY PLANTAR WITH TOPAZ LEFT; Surgeon: Ignacio Rabago DPM; Location: [facility] Main OR; Service: FOOT SURGERY Bilateral 2015 shock wave therapy for platar fasciitis REPAIR SEPTUM NASAL N/A 01/13/2017 Procedure: REPAIR SEPTUM NASAL; Surgeon: Dioni Desouza MD; Location: [facility] Main OR; Service: TONSILLECTOMY 6 years old TUBAL LIGATION 2017 Current Outpatient Medications Medication Sig Dispense Refill acyclovir (ZOVIRAX) 400 MG tablet Take 400 mg by mouth 2 (two) times a day escitalopram oxalate (LEXAPRO) 20 MG tablet Take 20 mg by mouth daily . multivitamin (THERAGRAN) per tablet 1 tablet daily fluticasone propionate (FLONASE) 50 mcg/actuation nasal spray Instill 2 (two) sprays into each nostril daily . 16 g 3 ibuprofen (ADVIL,MOTRIN) 800 MG tablet Take 800 mg by mouth every 8 (eight) hours as needed. 1 No current facility-administered medications for this visit. Allergies Allergen Reactions Hydrocodone-Acetaminophen GI Intolerance N/v Vicodon Percocet [Oxycodone-Acetaminophen] GI Intolerance Nausea/vomiting Tobacco History: reports that she has never smoked. She has never used smokeless tobacco. She reports current alcohol use. She reports that she does not use drugs. reports that she has never smoked. She has never used smokeless tobacco. Counseling given: Not Answered ROS: Review of Systems PHYSICAL EXAM : Vitals: 08/28/21 0855 BP: 99/72 BP Location: Left arm Patient Position: Sitting Pulse: 81 Temp: 97.8 F (36.6 C) SpO2: 95% Weight: 110.7 kg (244 lb) Height: 5' Physical Exam documented in this encounter [facility] 05-02-2021 History of Presen t illness Narrative Jes Caldwell 40 y.o. HPI WITH ASSESSMENT AND PLAN (dictation): The patient comes to the office. Doing well with the depression. Did well with the bladder sling surgery from Dr. Morgan. ASSESSMENT AND PLAN 1.Patient with anxiety, depression. Doing well with her Lexapro 20 mg once a day, Wellbutrin as well as trileptal 300 mg twice a day, hydroxyzine 25 mg as needed p.r.n. 2.For her obesity, she is going to try and lose some weight with exercise and cutting back on the diet. 3.For the allergic rhinitis, continue taking her Flonase 2 sprays in each nostril once a day. 4.For the vitamin D deficiency, we will check a vitamin D level on the patient. We will check with her for the colon polyps when the next colonoscopy is due. I will see back in about 4 months from now. Goals Addressed None VISIT SUMMARY: Diagnoses and all orders for this visit: Non-seasonal allergic rhinitis due to pollen - fluticasone propionate (FLONASE) 50 mcg/actuation nasal spray; Instill 2 (two) sprays into each nostril daily . Vitamin D deficiency Other orders - Cancel: ergocalciferol (Vitamin D2) 1,250 mcg (50,000 unit) capsule; Take 1 (one) capsule (50,000 Units total) by mouth once a week for 8 doses . Condition and plan discussed with patient in detail, patient agrees with plan. Risk, benefits, and side effects of medicines discussed with the patient, patient agrees with plan. Most recent laboratory (CBC, Hepatic, Renal, Thyroid and Lipid panel) were reviewed, addressed and were found to be satisfactory other than what has been noted above in the A&P. Most recent radiology imaging, and other study results were reviewed and discussed with patient. For any new medications prescribed today, patient was educated about indications for the medication, how to take the medication and potential side effects of the medications. Patient to return to office: No follow-ups on file. The following portions of the patient's history were reviewed and updated as appropriate: allergies, current medications, past family history, past medical history, past social history, past surgical history and problem list. Past History Past Medical History: Diagnosis Date Anxiety Arthritis bursitis in hips Cancer (HCC) ca cells on cervix, dr's watching Chronic pain disorder something hurts daily Chronic sinus infection Colon polyp Constipation since taking paxil COPD (chronic obstructive pulmonary disease) (HCC) gets bronchitis yearly Depression Headache hx migraines Herpes History of blood transfusion 10 yrs ago after csection 2004 HL (hearing loss) ear drum from fluid ruptured 2016 HPV (human papilloma virus) anogenital infection 10/24/2015 Obesity 12/2016 BMI 46, frustrated, gained weight with 4 foot surgeries and lack of 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,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 Peripheral neuropathy legs, 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 of theighs Plantar fasciitis, bilateral has tried many treatments, plan surgery 10/13/15 [address] foot Rectal bleeding Past Surgical History: Procedure Laterality Date ADENOIDECTOMY 6 years old CARPAL TUNNEL RELEASE OPEN Right 02/10/2019 Procedure: RIGHT HAND CARPAL TUNNEL RELEASE; Surgeon: Reji Ugarte II, MD; Location: [facility] Main OR; Service: Plastics CARPAL TUNNEL RELEASE OPEN Left 04/12/2019 Procedure: RELEASE CARPAL TUNNEL LEFT HAND; Surgeon: Reji Ugarte II, MD; Location: [facility] Main OR; Service: Plastics SECTION 2004 COLONOSCOPY N/A 05/02/2016 Procedure: COLONOSCOPY; Surgeon: Tulio Gunn MD; Location: [facility] Endo; Service: COLONOSCOPY 10/2018 COLONOSCOPY N/A 10/26/2018 Procedure: COLONOSCOPY WITH ANESTHESIA; Surgeon: Pito Hill MD; Location: [facility] Endo; Service: Gastroenterology D&C (DIL & CURETTAGE, SHARP W/ SUCTION) 2013 EGD N/A 05/02/2016 Procedure: EGD; Surgeon: Tulio Gunn MD; Location: [facility] Endo; Service: ENDOSCOPY SINUS,SEPTO-NASAL RECONSTRUCTION N/A 01/13/2017 Procedure: ENDOSCOPIC SINUS SURGERY; Surgeon: Dioni Desouza MD; Location: [facility] Main OR; Service: FASCIECTOMY PLANTAR Right 10/13/2015 Procedure: FASCIECTOMY PLANTAR W TOPAZ RT; Surgeon: Ignacio Rabago DPM; Location: [facility] Main OR; Service: FASCIECTOMY PLANTAR Left 11/03/2015 Procedure: FASCIECTOMY PLANTAR WITH TOPAZ LEFT; Surgeon: Ignacio Rabago DPM; Location: [facility] Main OR; Service: FOOT SURGERY Bilateral 2015 shock wave therapy for platar fasciitis REPAIR SEPTUM NASAL N/A 01/13/2017 Procedure: REPAIR SEPTUM NASAL; Surgeon: Dioni Desouza MD; Location: [facility] Main OR; Service: TONSILLECTOMY 6 years old TUBAL LIGATION 2017 Current Outpatient Medications Medication Sig Dispense Refill acyclovir (ZOVIRAX) 400 MG tablet Take 400 mg by mouth 2 (two) times a day bupropion HCl (WELLBUTRIN ORAL) Take by mouth . ergocalciferol (Vitamin D2) 1,250 mcg (50,000 unit) capsule Take 1 (one) capsule (50,000 Units total) by mouth once a week for 8 doses . 8 capsule 0 escitalopram oxalate (LEXAPRO) 20 MG tablet Take 20 mg by mouth daily . fluticasone propionate (FLONASE) 50 mcg/actuation nasal spray Instill 2 (two) sprays into each nostril daily . 16 g 3 hydrOXYzine (ATARAX) 25 MG tablet ibuprofen (ADVIL,MOTRIN) 800 MG tablet Take 800 mg by mouth every 8 (eight) hours as needed. 1 multivitamin (THERAGRAN) per tablet 1 tablet daily OXcarbazepine (TRILEPTAL) 300 MG tablet Take 300 mg by mouth 2 (two) times a day . 1 No current facility-administered medications for this visit. Allergies Allergen Reactions Hydrocodone-Acetaminophen GI Intolerance N/v Vicodon Percocet [Oxycodone-Acetaminophen] GI Intolerance Nausea/vomiting Tobacco History: reports that she has never smoked. She has never used smokeless tobacco. She reports current alcohol use. She reports that she does not use drugs. reports that she has never smoked. She has never used smokeless tobacco. Counseling given: Not Answered ROS: Review of Systems Constitutional: Negative for activity change, appetite change, fatigue, fever and unexpected weight change. HENT: Negative for hearing loss. Eyes: Negative for visual disturbance. Respiratory: Negative for chest tightness, shortness of breath and wheezing. Cardiovascular: Negative for chest pain, palpitations and leg swelling. Gastrointestinal: Negative for abdominal pain and diarrhea. Endocrine: Negative for polydipsia. Genitourinary: Negative for flank pain. Musculoskeletal: Negative for gait problem and joint swelling. Skin: Negative for color change and rash. Neurological: Negative for dizziness, syncope, facial asymmetry and headaches. Psychiatric/Behavioral: Negative for agitation and behavioral problems. PHYSICAL EXAM : Vitals: 05/02/21 0846 BP: 103/73 BP Location: Left arm Patient Position: Sitting BP Cuff Size: Adult Temp: 98.2 F (36.8 C) SpO2: 97% Weight: 116.5 kg (256 lb 12.8 oz) Height: 5' Physical Exam Constitutional: General: She is not in acute distress. Appearance: Normal appearance. She is well-developed. She is not diaphoretic. HENT: Head: Normocephalic and atraumatic. Eyes: Conjunctiva/sclera: Conjunctivae normal. Pupils: Pupils are equal, round, and reactive to light. Neck: Thyroid: No thyromegaly. Cardiovascular: Rate and Rhythm: Normal rate and regular rhythm. Heart sounds: Normal heart sounds. No murmur heard. Pulmonary: Effort: Pulmonary effort is normal. Breath sounds: Normal breath sounds. No wheezing. Musculoskeletal: Cervical back: Neck supple. Lymphadenopathy: Cervical: No cervical adenopathy. Skin: General: Skin is warm and dry. Neurological: General: No focal deficit present. Mental Status: She is alert and oriented to person, place, and time. documented in this encounter [facility] 02-07-2021 History of Presen t illness Narrative Depression Screening 02/07/2021 02/07/2021 Little interest or pleasure in doing things 3 3 Feeling down, depressed, or hopeless 2 2 PHQ-2 Total Score 5 5 Trouble falling or staying asleep, or sleeping too much 3 3 Feeling tired or having little energy 3 3 Poor appetite or overeating 0 0 Feeling bad about yourself - or that you are a failure or have let yourself or your family down 0 0 Trouble concentrating on things, such as reading the newspaper or watching television 3 0 Moving or speaking so slowly that other people could have noticed. Or the opposite - being so fidgety or restless that you have been moving around a lot more than usual 0 0 Thoughts that you would be better off , or of hurting yourself in some way 0 0 PHQ-9 Total Score 14 11 If you checked off any problems, how difficult have these problems made it for you to do your work, take care of things at home, or get along with other people? Somewhat difficult Not difficult at all Jes Caldwell 40 y.o. HPI WITH ASSESSMENT AND PLAN (dictation): Dictation on: 02/07/2021 9:18 AM by: BETO ANDRADE [[id number]] Goals Addressed None VISIT SUMMARY: Diagnoses and all orders for this visit: Vitamin D deficiency - ergocalciferol (Vitamin D2) 1,250 mcg (50,000 unit) capsule; Take 1 (one) capsule (50,000 Units total) by mouth once a week for 8 doses . Non-seasonal allergic rhinitis due to pollen - fluticasone propionate (FLONASE) 50 mcg/actuation nasal spray; Instill 2 (two) sprays into each nostril daily . Current mild episode of major depressive disorder without prior episode (HCC) Condition and plan discussed with patient in detail, patient agrees with plan. Risk, benefits, and side effects of medicines discussed with the patient, patient agrees with plan. Most recent laboratory (CBC, Hepatic, Renal, Thyroid and Lipid panel) were reviewed, addressed and were found to be satisfactory other than what has been noted above in the A&P. Most recent radiology imaging, and other study results were reviewed and discussed with patient. For any new medications prescribed today, patient was educated about indications for the medication, how to take the medication and potential side effects of the medications. Patient to return to office: No follow-ups on file. The following portions of the patient's history were reviewed and updated as appropriate: allergies, current medications, past family history, past medical history, past social history, past surgical history and problem list. Past History Past Medical History: Diagnosis Date Anxiety Arthritis bursitis in hips Cancer (HCC) ca cells on cervix, dr's watching Chronic pain disorder something hurts daily Chronic sinus infection Colon polyp Constipation since taking paxil COPD (chronic obstructive pulmonary disease) (HCC) gets bronchitis yearly Depression Headache hx migraines Herpes History of blood transfusion 10 yrs ago after csection 2004 HL (hearing loss) ear drum from fluid ruptured 2016 HPV (human papilloma virus) anogenital infection 10/24/2015 Obesity 12/2016 BMI 46, frustrated, gained weight with 4 foot surgeries and lack of 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,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 Peripheral neuropathy legs, 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 of theighs Plantar fasciitis, bilateral has tried many treatments, plan surgery 10/13/[address] foot Rectal bleeding Past Surgical History: Procedure Laterality Date ADENOIDECTOMY 6 years old CARPAL TUNNEL RELEASE OPEN Right 02/10/2019 Procedure: RIGHT HAND CARPAL TUNNEL RELEASE; Surgeon: Reji Ugarte II, MD; Location: [facility] Main OR; Service: Plastics CARPAL TUNNEL RELEASE OPEN Left 04/12/2019 Procedure: RELEASE CARPAL TUNNEL LEFT HAND; Surgeon: Reji Ugarte II, MD; Location: [facility] Main OR; Service: Plastics SECTION 2004 COLONOSCOPY N/A 05/02/2016 Procedure: COLONOSCOPY; Surgeon: Tulio Gunn MD; Location: [facility] Endo; Service: COLONOSCOPY 10/2018 COLONOSCOPY N/A 10/26/2018 Procedure: COLONOSCOPY WITH ANESTHESIA; Surgeon: Pito Hill MD; Location: [facility] Endo; Service: Gastroenterology D&C (DIL & CURETTAGE, SHARP W/ SUCTION) 2013 EGD N/A 05/02/2016 Procedure: EGD; Surgeon: Tulio Gunn MD; Location: [facility] Endo; Service: ENDOSCOPY SINUS,SEPTO-NASAL RECONSTRUCTION N/A 01/13/2017 Procedure: ENDOSCOPIC SINUS SURGERY; Surgeon: Dioni Desouza MD; Location: [facility] Main OR; Service: FASCIECTOMY PLANTAR Right 10/13/2015 Procedure: FASCIECTOMY PLANTAR W TOPAZ RT; Surgeon: Ignacio Rabago DPM; Location: [facility] Main OR; Service: FASCIECTOMY PLANTAR Left 11/03/2015 Procedure: FASCIECTOMY PLANTAR WITH TOPAZ LEFT; Surgeon: Ignacio Rabago DPM; Location: [facility] Main OR; Service: FOOT SURGERY Bilateral 2015 shock wave therapy for platar fasciitis REPAIR SEPTUM NASAL N/A 01/13/2017 Procedure: REPAIR SEPTUM NASAL; Surgeon: Dioni Desouza MD; Location: [facility] Main OR; Service: TONSILLECTOMY 6 years old TUBAL LIGATION 2018 Current Outpatient Medications Medication Sig Dispense Refill acyclovir (ZOVIRAX) 400 MG tablet Take 400 mg by mouth 2 (two) times a day bupropion HCl (WELLBUTRIN ORAL) Take by mouth . fluticasone propionate (FLONASE) 50 mcg/actuation nasal spray Instill 2 (two) sprays into each nostril daily . 16 g 2 hydrOXYzine (ATARAX) 25 MG tablet ibuprofen (ADVIL,MOTRIN) 800 MG tablet Take 800 mg by mouth every 8 (eight) hours as needed. 1 multivitamin (THERAGRAN) per tablet 1 tablet daily OXcarbazepine (TRILEPTAL) 300 MG tablet Take 300 mg by mouth 2 (two) times a day . 1 ergocalciferol (Vitamin D2) 1,250 mcg (50,000 unit) capsule Take 1 (one) capsule (50,000 Units total) by mouth once a week for 8 doses . 8 capsule 0 escitalopram oxalate (LEXAPRO) 20 MG tablet Take 20 mg by mouth daily . polyethylene glycol (MIRALAX) 17 gram powder Take 17 (seventeen) g by mouth daily . (Patient not taking: Reported on 07/28/2019 .) 255 g 0 No current facility-administered medications for this visit. Allergies Allergen Reactions Hydrocodone-Acetaminophen GI Intolerance N/v Vicodon Percocet [Oxycodone-Acetaminophen] GI Intolerance Nausea/vomiting Tobacco History: reports that she has never smoked. She has never used smokeless tobacco. She reports current alcohol use. She reports that she does not use drugs. reports that she has never smoked. She has never used smokeless tobacco. Counseling given: Not Answered ROS: Review of Systems Constitutional: Negative for activity change, appetite change, fatigue, fever and unexpected weight change. HENT: Negative for hearing loss. Eyes: Negative for visual disturbance. Respiratory: Negative for chest tightness, shortness of breath and wheezing. Cardiovascular: Negative for chest pain, palpitations and leg swelling. Gastrointestinal: Negative for abdominal pain and diarrhea. Endocrine: Negative for polydipsia. Genitourinary: Negative for flank pain. Musculoskeletal: Negative for gait problem and joint swelling. Skin: Negative for color change and rash. Neurological: Negative for dizziness, syncope, facial asymmetry and headaches. Psychiatric/Behavioral: Negative for agitation and behavioral problems. PHYSICAL EXAM : Vitals: 02/07/21 0901 BP: 102/69 BP Location: Left arm Patient Position: Sitting BP Cuff Size: Adult Pulse: 87 Temp: 97.7 F (36.5 C) SpO2: 96% Weight: 115.3 kg (254 lb 3.2 oz) Height: 5' Physical Exam Vitals and nursing note reviewed. Constitutional: General: She is not in acute distress. Appearance: She is well-developed. She is not diaphoretic. HENT: Head: Normocephalic and atraumatic. Eyes: Conjunctiva/sclera: Conjunctivae normal. Pupils: Pupils are equal, round, and reactive to light. Neck: Thyroid: No thyromegaly. Cardiovascular: Rate and Rhythm: Normal rate and regular rhythm. Heart sounds: Normal heart sounds. No murmur heard. Pulmonary: Effort: Pulmonary effort is normal. Breath sounds: Normal breath sounds. No wheezing. Musculoskeletal: Cervical back: Neck supple. Lymphadenopathy: Cervical: No cervical adenopathy. Skin: General: Skin is warm and dry. Neurological: General: No focal deficit present. Mental Status: She is alert and oriented to person, place, and time. documented in this encounter [facility] Evaluation note Diagnosis Routine check-up- Primary Routine general medical examination at a health care facility Vitamin D deficiency Non-seasonal allergic rhinitis due to pollen Current mild episode of major depressive disorder without prior episode (HCC) [facility] Diagnosis Encounter for preprocedure screening laboratory testing for COVID-19- Primary [facility] Diagnosis Current mild episode of major depressive disorder without prior episode (HCC)- Primary Non-seasonal allergic rhinitis due to pollen Vitamin D deficiency Encounter for screening for malignant neoplasm of breast, unspecified screening modality [facility] Diagnosis Diarrhea, unspecified type- Primary Non-seasonal allergic rhinitis due to pollen Current mild episode of major depressive disorder without prior episode (HCC) Discomfort in chest Other chest pain [facility] Diagnosis Chest pain at rest- Primary Unspecified chest pain Discomfort in chest Other chest pain [facility] Diagnosis Chest pain at rest- Primary Unspecified chest pain [facility] Diagnosis Current mild episode of major depressive disorder without prior episode (HCC)- Primary Non-seasonal allergic rhinitis due to pollen Meralgia paresthetica, right lower limb [facility] Diagnosis Non-seasonal allergic rhinitis due to pollen- Primary Current mild episode of major depressive disorder without prior episode (HCC) Vitamin D deficiency [facility] Diagnosis Vitamin D deficiency- Primary [facility] Attachments The following attachments cannot be sent through Care Everywhere. * Chest Pain (Lao) [facility] Diagnosis Chronic sinus complaints - P rimary Non-seasonal allergic rhinit is due to pollen Immunization due Diagnosis Rectal bleeding- Primary Hemorrhage of rectum and anus History of colon polyps Gastritis, presence of bleeding unspecified, unspecified chronicity, unspecified gastritis type Depression, unspecified depression type Diagnosis Non-seasonal allergic rhinitis due to pollen- Primary Constipation, unspecified constipation type Bilateral carpal tunnel syndrome Carpal tunnel syndrome Vitamin D deficiency Diagnosis Cough- Primary Diagnosis Bilateral carpal tunnel syndrome- Primary Carpal tunnel syndrome Diagnosis S/P carpal tunnel release- Primary Other postprocedural status Diagnosis Bilateral carpal tunnel syndrome- Primary Carpal tunnel syndrome Diagnosis S/P carpal tunnel release- Primary Other postprocedural status Diagnosis Thoracic radiculopathy Thoracic or lumbosacral neuritis or radiculitis, unspecified Neck pain Cervicalgia Diagnosis Neck pain Cervicalgia Diagnosis Thoracic radiculopathy Thoracic or lumbosacral neuritis or radiculitis, unspecified Diagnosis Acute non-recurrent maxillary sinusitis- Primary Nonsmoker Other specified conditions influencing health status Diagnosis Panic Attack Panic disorder without agoraphobia Adjustment disorder, unspecified type Reason for Referral Status Reason Specialty Diagnoses / Procedures Referred By Contact Referred To Contact Closed Gastroenterology Diagnoses Rectal bleeding Marta Gil PA-C [address] [place] [phone] Pito Hill MD [address] [place] [id number] Status Reason Specialty Diagnoses / Procedures Referred By Contact Referred To Contact Authorized Plastic Surgery Diagnoses Bilateral carpal tunnel syndrome Marta Gil PA-C [address] [place] [phone] Reji Ugarte II, MD [address] [place] [phone] Specialty Diagnoses / Procedures Referred By Contac t Referred To Contact Radiology Diagnoses Encounter for screening for malignant neoplasm of breast, unspecified screening modality Procedures Mammography Screening Bilateral Beto Andrade MD [address] [place] [phone] Referral ID Status Reason Start Date Expiration Date V isits Requested Visits Authorized [id number] Authorized 05/02/2021 05/02/2022 1 1 Specialty Diagnoses / Procedures Referred By Contac t Referred To Contact Cardiology Diagnoses Discomfort in chest Beto Andrade MD [address] [address] Map Cardio [facility] [address] [place] [address] Referral ID Status Reason Start Date Expiration Date Visits Requested Visits Authorized [id number] Authorized Specialty Services Required/Pat ient's Best Interest 08/28/2022 1 1 Specialty Diagnoses / Procedures Referred By Contac t Referred To Contact Cardiology Diagnoses Chest pain at rest Procedures Echocardiogram complete Margarette Hauser MD [address] [place] [phone] Referral ID Status Reason Start Date Expiration Date V isits Requested Visits Authorized [id number] Authorized 09/28/2021 09/28/2022 1 1 Specialty Diagnoses / Procedures Referred By Contac t Referred To Contact Cardiology Diagnoses Chest pain at rest Procedures Stress test only, exercise Margarette Hauser MD [address] [place] [phone] Referral ID Status Reason Start Date Expiration Date V isits Requested Visits Authorized [id number] Authorized 09/28/2021 09/28/2022 1 1 Specialty Diagnoses / Procedures Referred By Contac t Referred To Contact Physical Medicine/Rehabilitatio n Diagnoses Meralgia paresthetica, right lower limb Beto Andrade MD [address] [address] Capo Jiang MD [address] [place] [address] Referral ID Status Reason Start Date Expiration Date V isits Requested Visits Authorized [id number] Closed Specialty Services Required/Bridgette ent's Best Interest 11/16/2021 11/16/2022 1 1 History of Present Illness * Pito Hill MD - 10/07/2018 3:07 PM EST [facility] [address] [facility] GASTRO[facility]OLOGY [address] [facility] [phone] Jes Caldwell History: This 38-year-old lady has been having rectal bleeding more or less daily for last 3 months. According to her, the blood is bright red, and it drips. Says that her bowel movements are on the firm side, since she has been taking medication for depression. She gets rectal pain when she has bowel movements. Denies any weight loss. PAST MEDICAL HISTORY, PAST SURGERY, MEDICATIONS Reviewed with the patient. FAMILY HISTORY Mother had cancer not sure where the primary was. Says a lot of family members, grandmother, grandfather on both sides had cancer. LABORATORY DATA No recent blood tests available for review. IMPRESSION 1. Rectal bleeding with rectal pain. 2. History of colon polyp. 3. Depression 4. Gastritis. ADVISE Miralax 1 table spoon at night time Use Sitz bath daily We will schedule her for a colonoscopy. Risks, benefits of the procedure were explained to the patient. 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 Peripheral neuropathy legs, side of theighs Plantar fasciitis, bilateral has tried many treatments, plan surgery 10/13/15 on [address] foot Past Surgical History: Procedure Laterality Date ADENOIDECTOMY 6 years old SECTION 2004 COLONOSCOPY N/A 05/02/2016 Procedure: COLONOSCOPY; Surgeon: Tulio Gunn MD; Location: [facility]; Service: D&C (DIL & CURETTAGE, SHARP W/ SUCTION) 2013 EGD N/A 05/02/2016 Procedure: EGD; Surgeon: Tulio Gunn MD; Location: [facility] Endo; Service: ENDOSCOPY SINUS,SEPTO-NASAL RECONSTRUCTION N/A 01/13/2017 Procedure: ENDOSCOPIC SINUS SURGERY; Surgeon: Dioni Desouza MD; Location: [facility] Main OR; Service: FASCIECTOMY PLANTAR Right 10/13/2015 Procedure: FASCIECTOMY PLANTAR W TOPAZ RT; Surgeon: Ignacio Rabago DPM; Location: [facility] Main OR;Service: FASCIECTOMY PLANTAR Left 11/03/2015 Procedure: FASCIECTOMY PLANTAR WITH TOPAZ LEFT; Surgeon: Ignacio Rabago DPM; Location: [facility] Main OR; Service: FOOT SURGERY Bilateral 2015 shock wave therapy for platar fasciitis REPAIR SEPTUM NASAL N/A 01/13/2017 Procedure: REPAIR SEPTUM NASAL; Surgeon: Dioni Desouza MD; Location: [facility] Main OR; Service: TONSILLECTOMY 6 years old Allergies Allergen Reactions Hydrocodone GI Intolerance N/v percocet Hydrocodone-Acetaminophen GI Intolerance N/v Vicodon Prior to Admission medications Medication Sig Start Date End Date Taking? Authorizing Provider acyclovir (ZOVIRAX) 400 MG tablet Take 400 mg by mouth 2 (two) times a day Yes Santana Morgan MD fluticasone (FLONASE) 50 mcg/actuation nasal spray Instill 2 (two) sprays into each nostril daily. 03/31/18 Yes Beto Andrade MD ibuprofen (ADVIL,MOTRIN) 800 MG tablet Take 800 mg by mouth every 8 (eight) hours as needed. 03/27/18 Yes Santana Morgan MD multivitamin (THERAGRAN) per tablet 1 tablet daily Yes Self ReferringMD PARoxetine (PAXIL) 20 MG tablet Take 1 (one) tablet (20 mg total) by mouth daily . 09/22/18 Yes Tomasa Andrade MD polyethylene glycol (MIRALAX) 17 gram powder Take 17 (seventeen) g by mouth daily . 09/03/18 Yes Marta Gil PA-C Family History Problem Relation Age of Onset COPD Mother Cancer Mother COPD Father Cancer Maternal Grandmother Stroke Maternal Grandmother Cancer Maternal Grandfather Cancer Paternal Grandmother Diabetes Paternal Grandmother COPD Paternal Grandfather Cancer Paternal Grandfather Review of Systems Constitutional: Negative for unexpected weight change. Respiratory: Negative. Cardiovascular: Negative. Genitourinary: Negative. Musculoskeletal: Negative. Neurological: Negative. Psychiatric/Behavioral: Has depression reports that she drinks alcohol. reports that she has never smoked. She has never used smokeless tobacco. Ht 5' Wt 109.8 kg (242 lb) BMI 47.26 kg/m 109.8 kg (242 lb) 5' Body mass index is 47.26 kg/m . Physical Exam Constitutional: Patient is oriented to person, place, and time. Patient appears well Head: Normocephalic and atraumatic. Eyes: Pupils are equal, round, and reactive to light. Neck: No thyromegaly present. Cardiovascular: Normal rate, rhythm, and normal heart sounds. Exam reveals no friction rub. No murmur heard. Pulmonary/Chest: No respiratory distress. Patient has no wheezes. Abdominal: Soft. Normal appearance and bowel sounds are normal. Patient exhibits no distension and no mass. There is no hepatosplenomegaly. There is no tenderness. There is no rebound. Musculoskeletal: Normal range of motion. Patient exhibits no edema. Neurological: Patient is alert and oriented to person, place, and time. Skin: No rash noted. No erythema. Pito Hill MD in this encounter* Marta Gil PA-C - 01/07/2019 2:41 PM EDT .Subjective Patient ID: Jes Caldwell is a 38 y.o. female. Jes is a 38-year-old female presenting today for follow-up visit for management of chronic conditions. We have not seen her in several months for her allergies and constipation. She says the MiraLAX was not covered by insurance originally or it was not available at the pharmacy so she picked up Colace and has been using that instead. She would like to retry the MiraLAX if possible though. Allergies are well controlled with the Flonase. She just now ran out recently because of the spring allergies. She is really more concerned that both of her hands have worsened in the tingling and numbness. She had this previously and was told it was carpal tunnel. She was given wrist brace to wear atnight which did help for a while but lately she is having trouble with her portable machine sander. She feels like sheis dropping things more often and having a lot of trouble holding the baby. 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 The left hand is actually worse thanthe right currently. She is right-hand dominant. She has not been seen for the carpal tunnel in several years. She has no history of surgery on either hand. The following portions of the patient's history were reviewed and updated as appropriate: allergies, current medications, past family history, past medical history, past social history, past surgicalhistory and problem list. Review of Systems Constitutional: Negative for activity change, fatigue, fever and unexpected weight change. Eyes: Negative for photophobia and visual disturbance. Respiratory: Negative for cough, chest tightness, shortness of breath and wheezing. Cardiovascular: Negative for chest pain, palpitations and leg swelling. Gastrointestinal: Negative for abdominal pain, blood in stool, constipation, diarrhea, nausea and vomiting. Endocrine: Negative for cold intolerance and heat intolerance. Musculoskeletal: Negative for arthralgias, gait problem and myalgias. Skin: Negative for color change, rash and wound. Neurological: Positive for weakness and numbness. Negative for dizziness, light- headedness and headaches. Objective Physical Exam Constitutional: She is oriented to person, place, and time. She appears well- developed and well-nourished. No distress. HENT: Head: Normocephalic and atraumatic. Neck: Normal range of motion. Neck supple. No thyroid mass and no thyromegaly present. Cardiovascular: Normal rate, regular rhythm, S1 normal and S2 normal. Exam reveals no gallop and nofriction rub. No murmur heard. Pulmonary/Chest: Effort normal and breath sounds normal. No accessory muscle usage. No tachypnea and no bradypnea. No respiratory distress. She has no decreased breath sounds. She has no wheezes. Shehas no rales. Lymphadenopathy: Head (right side): No submental, no submandibular, no tonsillar, no preauricular, no posterior auricular and no occipital adenopathy present. Head (left side): No submental, no submandibular, no tonsillar, no preauricular, no posterior auricular and no occipital adenopathy present. She has no cervical adenopathy. Right: No supraclavicular adenopathy present. Left: No supraclavicular adenopathy present. Neurological: She is alert and oriented to person, place, and time. Positive Tinel sign bilateral wrist Skin: Skin is warm, dry and intact. No rash noted. No cyanosis. Nursing note and vitals reviewed. Assessment/Plan: 1. Allergic rhinitis we will continue the Flonase 50 mcg nasal spray instilling 2 sprays in each nostril daily 2. Constipation we will continue the MiraLAX 17 g daily. If it not covered by insurance she can brain picker [id number] 3. Bilateral carpal tunnel we will get her over to Dr. Ugarte for evaluation. Explained that she mayneed an EMG done before 4. Vitamin D deficiency we will get her on the vitamin D2 50,000 units once weekly for 8 weeks. Discussed continuation therapy at 5000 units daily after that which she says she will consider and let us know. We will see her back in 3 months time or sooner if needed Diagnoses and all orders for this visit: Non-seasonal allergic rhinitis due to pollen - fluticasone propionate (FLONASE) 50 mcg/actuation nasal spray; Instill 2 (two) sprays into each nostril daily . Constipation, unspecified constipation type - polyethylene glycol (MIRALAX) 17 gram powder; Take 17 (seventeen) g by mouth daily . Bilateral carpal tunnel syndrome - Ambulatory referral to Plastic Surgery; Future Vitamin D deficiency - ergocalciferol (VITAMIN D2) 50,000 unit capsule; Take 1 (one) capsule (50,000 Units total) by mouth once a week for 8 doses . Note: This dictation was generated using [employer] voice recognition software. Please excuse any grammatical or spelling errors that may have occurred using the system. documented in this encounter* Reji Ugarte II, MD - 02/03/2019 3:38 PM EDT Jes Caldwell female 38 y.o. Chief Complaint Carpal Tunnel Brief Review of HPI, Focused Exam, and Assessment and Plan Dictation on: 02/03/2019 3:40 PM by: STEPHENIEREJI Cuenca [[id number]] Allergies: Hydrocodone and Hydrocodone-acetaminophen Patient's Medications New Prescriptions No medications on file Previous Medications ACYCLOVIR (ZOVIRAX) 400 MG TABLET Take 400 mg by mouth 2 (two) times a day BUPROPION HCL (WELLBUTRIN ORAL) Take by mouth . ERGOCALCIFEROL (VITAMIN D2) 50,000 UNIT CAPSULE Take 1 (one) capsule (50,000 Units total) by mouth once a week for 8 doses . ESCITALOPRAM OXALATE (LEXAPRO) 20 MG TABLET Take 20 mg by mouth daily . FLUTICASONE PROPIONATE (FLONASE) 50 MCG/ACTUATION NASAL SPRAY Instill 2 (two) sprays into each nostril daily . IBUPROFEN (ADVIL,MOTRIN) 800 MG TABLET Take 800 mg by mouth every 8 (eight) hours as needed. MULTIVITAMIN (THERAGRAN) PER TABLET 1 tablet daily POLYETHYLENE GLYCOL (MIRALAX) 17 GRAM POWDER Take 17 (seventeen) g by mouth daily . Modified Medications No medications on file Discontinued Medications No medications on file Review of Systems Constitutional: Negative for chills and fever. HENT: Negative for nosebleeds, rhinorrhea, sinus pressure and sneezing. Eyes: Negative for pain, redness and itching. Respiratory: Negative for cough, choking, shortness of breath and wheezing. Cardiovascular: Negative for chest pain and palpitations. Gastrointestinal: Negative for nausea and vomiting. Endocrine: Negative for polydipsia and polyuria. Musculoskeletal: Positive for arthralgias. Skin: Positive for color change. Negative for wound. Neurological: Positive for numbness. Negative for dizziness, seizures, syncope, facial asymmetry and weakness. Active Ambulatory Problems Diagnosis Date Noted Diarrhea 04/18/2016 Hematochezia 04/18/2016 Epigastric abdominal pain 04/18/2016 Gastritis 05/08/2016 Colon polyp, hyperplastic 05/08/2016 Morbid obesity with body mass index (BMI) of 40.0 to 49.9 (HCC) 01/08/2017 Allergic rhinitis 03/31/2018 Resolved Ambulatory Problems Diagnosis Date Noted Bronchitis 07/30/2016 Past Medical History: Diagnosis Date Arthritis Cancer (HCC) Chronic pain disorder Chronic sinus infection Colon polyp Constipation COPD (chronic obstructive pulmonary disease) (HCC) Headache Herpes History of blood transfusion HL (hearing loss) HPV (human papilloma virus) anogenital infection 10/24/2015 Obesity 12/2016 Peripheral neuropathy Plantar fasciitis, bilateral Rectal bleeding Social History Socioeconomic History Marital status: Single Spouse name: Not on file Number of children: Not on file Years of education: Not on file Highest education level: Not on file Occupational History Not on file Social Needs Financial resource strain: Not on file Food insecurity: Worry: Not on file Inability: Not on file Transportation needs: Medical: Not on file Non-medical: Not on file Tobacco Use Smoking status: Never Smoker Smokeless tobacco: Never Used Substance and Sexual Activity Alcohol use: Yes Comment: 5 a month, wine Drug use: No Sexual activity: Never Lifestyle Physical activity: Days per week: Not on file Minutes per session: Not on file Stress: Not on file Relationships Social connections: Talks on phone: Not on file Gets together: Not on file Attends protestant service: Not on file Active member of club or organization: Not on file Attends meetings of clubs or organizations: Not on file Relationship status: Not on file Other Topics Concern Not on file Social History Narrative Not on file Data Unavailable Family History Problem Relation Age of Onset COPD Mother Cancer Mother COPD Father Cancer Maternal Grandmother Stroke Maternal Grandmother Cancer Maternal Grandfather Cancer Paternal Grandmother Diabetes Paternal Grandmother COPD Paternal Grandfather Cancer Paternal Grandfather EXAM Vitals: 02/03/19 1133 BP: 123/81 Pulse: 85 Weight: 112 kg (247 lb) Height: 5' General: Normal Mood and affect, pleaseant demanor HEENT: Pupils Equal Round Reactive to Light; Extraocular Movements intact Chest: Normal Rise and Fall, Heart Rate is regular with normal rhythm. No swelling in the extremities Normal 2 + pulses, Normal Gross sensation to hands and feet. Normal Gait and stride, with normal arm and shoulder motion. Physical Exam Reji Ugarte II, MD documented in this encounter* Reji Ugarte II, MD - 02/24/2019 11:15 AM EDT eJs is status post right hand carpal tunnel release. Doing well, moving well, feeling well. All sutures removed. Numbness and tingling are gone. Incision looks good. No evidence of infection, pain, or irritation. Plan at this time is scar massage protocol. Follow up with us in 4 weeks with a potential carpal tunnel release in another 5. documented in this encounter* Reji Ugarte II, MD - 03/29/2019 2:15 PM EDT Jes Caldwell presents with a history of right carpal tunnel release. The plan now is left handcarpal tunnel release. We will do this in the next few weeks. Risks and benefits discussed. Her right hand is doing well, moving well, feeling well. PLAN At this time is left hand carpal tunnel release in the coming weeks. documented in this encounter* Beto Andrade MD - 09/09/2019 4:16 PM EST Jes Caldwell 39 y.o. HPI WITH ASSESSMENT AND PLAN (dictation): Patient came into the office. For about a month she is having severe pain in the right the spine going down the thoracic area. She is also complaining of a little discomfort coming from the head downto her neck. ASSESSMENT The patient overall appears to be thoracic radiculopathy. We will get an x-ray of the cervical spine and thoracic spine. We will give her a Medrol Dosepak, give her Flexeril 10 mg at bedtime, warned against drowsiness. We will have her see neurology for the same. I will see back in my office 2 months from now. Goals Addressed None VISIT SUMMARY: Diagnoses and all orders for this visit: Thoracic radiculopathy Condition and plan discussed with patient in detail, patient agrees with plan. Risk, benefits, and side effects of medicines discussed with the patient, patient agrees with plan. Most recent laboratory (CBC, Hepatic, Renal, Thyroid and Lipid panel) were reviewed, addressed and were found to be satisfactory other than what has been noted above in the A&P. Most recent radiology imaging, and other study results were reviewed and discussed with patient. For any new medications prescribed today, patient was educated about indications for the medication, how to take the medication and potential side effects of the medications. Patient to return to office: No follow-ups on file. The following portions of the patient's history were reviewed and updated as appropriate: allergies, current medications, past family history, past medical history, past social history, past surgicalhistory and problem list. Past History Past Medical History: Diagnosis Date Anxiety Arthritis bursitis in hips Cancer ([facility]) ca cells on cervix, dr's watching Chronic pain disorder something hurts daily Chronic sinus infection Colon polyp Constipation since taking paxil COPD (chronic obstructive pulmonary disease) ([facility]) gets bronchitis yearly Depression Headache hx migraines Herpes History of blood transfusion 10 yrs ago after csection 2004 HL (hearing loss) ear drum from fluid ruptured 2016 HPV (human papilloma virus) anogenital infection 10/24/2015 Obesity 12/2016 BMI 46, frustrated, gained weight with 4 foot surgeries and lack of 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,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 Peripheral neuropathy legs, side of theighs Plantar fasciitis, bilateral has tried many treatments, plan surgery 10/13/[address] foot Rectal bleeding Past Surgical History: Procedure Laterality Date ADENOIDECTOMY 6 years old CARPAL TUNNEL RELEASE OPEN Right 02/10/2019 Procedure: RIGHT HAND CARPAL TUNNEL RELEASE; Surgeon: Reji Ugarte II, MD; Location: [facility] Main OR; Service: Plastics CARPAL TUNNEL RELEASE OPEN Left 04/12/2019 Procedure: RELEASE CARPAL TUNNEL LEFT HAND; Surgeon: Reji Ugarte II, MD; Location: [facility] Main OR; Service: Plastics SECTION 2004 COLONOSCOPY N/A 05/02/2016 Procedure: COLONOSCOPY; Surgeon: Tulio Gunn MD; Location: [facility] Endo; Service: COLONOSCOPY 10/2018 COLONOSCOPY N/A 10/26/2018 Procedure: COLONOSCOPY WITH ANESTHESIA; Surgeon: Pito Hill MD; Location: [facility] Endo; Service: Gastroenterology D&C (DIL & CURETTAGE, SHARP W/ SUCTION) 2013 EGD N/A 05/02/2016 Procedure: EGD; Surgeon: Tulio Gunn MD; Location: [facility] Endo; Service: ENDOSCOPY SINUS,SEPTO-NASAL RECONSTRUCTION N/A 01/13/2017 Procedure: ENDOSCOPIC SINUS SURGERY; Surgeon: Dioni Desouza MD; Location: [facility] Main OR; Service: FASCIECTOMY PLANTAR Right 10/13/2015 Procedure: FASCIECTOMY PLANTAR W TOPAZ RT; Surgeon: Ignacio Rabago DPM; Location: [facility] Main OR;Service: FASCIECTOMY PLANTAR Left 11/03/2015 Procedure: FASCIECTOMY PLANTAR WITH TOPAZ LEFT; Surgeon: Ignacio Rabago DPM; Location: [facility] Main OR; Service: FOOT SURGERY Bilateral 2015 shock wave therapy for platar fasciitis REPAIR SEPTUM NASAL N/A 01/13/2017 Procedure: REPAIR SEPTUM NASAL; Surgeon: Dioni Desouza MD; Location: [facility] Main OR; Service: TONSILLECTOMY 6 years old TUBAL LIGATION 2017 Current Outpatient Medications Medication Sig Dispense Refill acyclovir (ZOVIRAX) 400 MG tablet Take 400 mg by mouth 2 (two) times a day bupropion HCl (WELLBUTRIN ORAL) Take by mouth . cefdinir (OMNICEF) 300 MG capsule Take 1 (one) capsule (300 mg total) by mouth 2 (two) times a day . 20 capsule 0 ergocalciferol (VITAMIN D2) 50,000 unit capsule Take 1 (one) capsule (50,000 Units total) by mouth once a week for 8 doses . 8 capsule 0 escitalopram oxalate (LEXAPRO) 20 MG tablet Take 20 mg by mouth daily . fluticasone propionate (FLONASE) 50 mcg/actuation nasal spray Instill 2 (two) sprays into each nostril daily . 16 g 2 ibuprofen (ADVIL,MOTRIN) 800 MG tablet Take 800 mg by mouth every 8 (eight) hours as needed. 1 multivitamin (THERAGRAN) per tablet 1 tablet daily ondansetron (ZOFRAN) 8 MG tablet Take 1 (one) tablet (8 mg total) by mouth every 8 (eight) hours asneeded for nausea . 9 tablet 0 OXcarbazepine (TRILEPTAL) 300 MG tablet Take 300 mg by mouth 2 (two) times a day . 1 polyethylene glycol (MIRALAX) 17 gram powder Take 17 (seventeen) g by mouth daily . (Patient not taking: Reported on 07/28/2019 .) 255 g 0 No current facility-administered medications for this visit. Allergies Allergen Reactions Hydrocodone-Acetaminophen GI Intolerance N/v Vicodon Percocet [Oxycodone-Acetaminophen] GI Intolerance Nausea/vomiting Tobacco History: reports that she has never smoked. She has never used smokeless tobacco. She reports current alcohol use. She reports that she does not use drugs. reports that she has never smoked. She has never used smokeless tobacco. Counseling given: Not Answered ROS: Review of Systems Constitutional: Negative for activity change, appetite change, fatigue, fever and unexpected weightchange. HENT: Negative for hearing loss. Eyes: Negative for visual disturbance. Respiratory: Negative for chest tightness, shortness of breath and wheezing. Cardiovascular: Negative for chest pain, palpitations and leg swelling. Gastrointestinal: Negative for abdominal pain and diarrhea. Endocrine: Negative for polydipsia. Genitourinary: Negative for flank pain. Musculoskeletal: Negative for gait problem and joint swelling. R thoracic pain 06/24 Skin: Negative for color change and rash. Neurological: Negative for dizziness, syncope, facial asymmetry and headaches. Psychiatric/Behavioral: Negative for agitation and behavioral problems. PHYSICAL EXAM : Vitals: 09/09/19 1558 BP: 123/72 Pulse: 72 SpO2: 98% Weight: 111.1 kg (245 lb) Height: 5' Physical Exam Vitals signs and nursing note reviewed. Constitutional: General: She is not in acute distress. Appearance: She is well-developed. She is not diaphoretic. HENT: Head: Normocephalic and atraumatic. Eyes: Conjunctiva/sclera: Conjunctivae normal. Pupils: Pupils are equal, round, and reactive to light. Neck: Musculoskeletal: Neck supple. Thyroid: No thyromegaly. Cardiovascular: Rate and Rhythm: Normal rate and regular rhythm. Heart sounds: Normal heart sounds. No murmur. Pulmonary: Effort: Pulmonary effort is normal. Breath sounds: Normal breath sounds. No wheezing. Lymphadenopathy: Cervical: No cervical adenopathy. Skin: General: Skin is warm and dry. Neurological: Mental Status: She is alert and oriented to person, place, and time. documented in this encounter* Oanh Torres LPN - 10/12/2019 8:34 AM EST Chart reviewed regarding recent ED visit. Patient was evaluated in the emergency department on 10.11.19 Patient has counseling session 10.12.19. documented in this encounter* Marta Gil PA-C - 07/28/2019 10:43 AM EST .Subjective Patient ID: Jes Caldwell is a 39 y.o. female. Jes is a 39-year-old female presenting today for an acute visit. Says that she has had on and off cold and sinus symptoms for a month now. About a month ago she developed cold and sinus symptomsfor a week to 2 weeks felt like she was improving a little bit and then on Friday started worseningsymptoms again. She is wondering if there is any concern with her nasal congestion and her sinus amadou ned. She complains of sinus congestion, fatigue, headache, and a productive cough with clear phlegm. She denies any shortness of breath, fevers, or rashes. She denies any chest pain, changes her vision or hearing, or ear pain. She tried taking a cold medicine type tea but could not tolerate it anddid not think it helped. The following portions of the patient's history were reviewed and updated as appropriate: allergies, current medications, past family history, past medical history, past social history, past surgicalhistory and problem list. Review of Systems Constitutional: Positive for fatigue. Negative for chills and fever. HENT: Positive for congestion, postnasal drip, sinus pressure and sinus pain. Negative for ear discharge, ear pain, rhinorrhea, sore throat, trouble swallowing and voice change. Eyes: Negative for photophobia, pain, discharge and visual disturbance. Respiratory: Positive for cough. Negative for chest tightness, shortness of breath and wheezing. Cardiovascular: Negative for chest pain and palpitations. Gastrointestinal: Negative for abdominal pain, constipation, diarrhea, nausea and vomiting. Musculoskeletal: Negative for arthralgias and myalgias. Skin: Negative for color change and rash. Neurological: Positive for headaches. Negative for dizziness, weakness and light-headedness. Objective Physical Exam Constitutional: She is oriented to person, place, and time. She appears well- developed and well-nourished. No distress. HENT: Head: Normocephalic and atraumatic. Right Ear: No tenderness. Tympanic membrane is not scarred, not perforated, not erythematous, not retracted and not bulging. No middle ear effusion. Left Ear: No tenderness. Tympanic membrane is erythematous. Tympanic membrane is not scarred, not perforated, not retracted and not bulging. A middle ear effusion is present. Nose: Rhinorrhea present. No mucosal edema. Right sinus exhibits no maxillary sinus tenderness and no frontal sinus tenderness. Left sinus exhibits no maxillary sinus tenderness and no frontal sinus tenderness. Mouth/Throat: Uvula is midline and mucous membranes are normal. No oropharyngeal exudate, posteriororopharyngeal edema, posterior oropharyngeal erythema or tonsillar abscesses. Neck: Normal range of motion. Neck supple. Cardiovascular: Normal rate, regular rhythm, S1 normal and S2 normal. Exam reveals no gallop and nofriction rub. No murmur heard. Pulmonary/Chest: Effort normal and breath sounds normal. No accessory muscle usage. No tachypnea and no bradypnea. No respiratory distress. She has no decreased breath sounds. She has no wheezes. Shehas no rhonchi. She has no rales. Lymphadenopathy: Head (right side): No submental, no submandibular, no tonsillar, no preauricular, no posterior auricular and no occipital adenopathy present. Head (left side): No submental, no submandibular, no tonsillar, no preauricular, no posterior auricular and no occipital adenopathy present. She has no cervical adenopathy. Right: No supraclavicular adenopathy present. Left: No supraclavicular adenopathy present. Neurological: She is alert and oriented to person, place, and time. Skin: Skin is warm, dry and intact. No rash noted. Assessment/Plan: 1. Acute maxillary sinusitis we will get her on Omnicef 300 mg twice daily for the next 10 days. Did explain that some of this is viral in nature so we may not get significant relief with antibioticsbut since this is been going on and off for a month, we need to try penetrating of sinuses. She canalso brain picker [id number] cold and sinus medication. Told her I like Mucinex cold and sinus best for these types of symptoms but except her what she chooses. We will see her back as needed for this issue Diagnoses and all orders for this visit: Acute non-recurrent maxillary sinusitis - cefdinir (OMNICEF) 300 MG capsule; Take 1 (one) capsule (300 mg total) by mouth 2 (two) times a day . Nonsmoker Note: This dictation was generated using [employer] voice recognition software. Please excuse any grammatical or spelling errors that may have occurred using the system. documented in this encounter* Marta Gil PA-C - 07/28/2019 10:43 AM EST .Subjective Patient ID: Jes Caldwell is a 39 y.o. female. Jes is a 39-year-old female presenting today for an acute visit. Says that she has had on and off cold and sinus symptoms for a month now. About a month ago she developed cold and sinus symptomsfor a week to 2 weeks felt like she was improving a little bit and then on Friday started worseningsymptoms again. She is wondering if there is any concern with her nasal congestion and her sinus amadou ned. She complains of sinus congestion, fatigue, headache, and a productive cough with clear phlegm. She denies any shortness of breath, fevers, or rashes. She denies any chest pain, changes her vision or hearing, or ear pain. She tried taking a cold medicine type tea but could not tolerate it anddid not think it helped. The following portions of the patient's history were reviewed and updated as appropriate: allergies, current medications, past family history, past medical history, past social history, past surgicalhistory and problem list. Review of Systems Constitutional: Positive for fatigue. Negative for chills and fever. HENT: Positive for congestion, postnasal drip, sinus pressure and sinus pain. Negative for ear discharge, ear pain, rhinorrhea, sore throat, trouble swallowing and voice change. Eyes: Negative for photophobia, pain, discharge and visual disturbance. Respiratory: Positive for cough. Negative for chest tightness, shortness of breath and wheezing. Cardiovascular: Negative for chest pain and palpitations. Gastrointestinal: Negative for abdominal pain, constipation, diarrhea, nausea and vomiting. Musculoskeletal: Negative for arthralgias and myalgias. Skin: Negative for color change and rash. Neurological: Positive for headaches. Negative for dizziness, weakness and light-headedness. Objective Physical Exam Constitutional: She is oriented to person, place, and time. She appears well- developed and well-nourished. No distress. HENT: Head: Normocephalic and atraumatic. Right Ear: No tenderness. Tympanic membrane is not scarred, not perforated, not erythematous, not retracted and not bulging. No middle ear effusion. Left Ear: No tenderness. Tympanic membrane is erythematous. Tympanic membrane is not scarred, not perforated, not retracted and not bulging. A middle ear effusion is present. Nose: Rhinorrhea present. No mucosal edema. Right sinus exhibits no maxillary sinus tenderness and no frontal sinus tenderness. Left sinus exhibits no maxillary sinus tenderness and no frontal sinus tenderness. Mouth/Throat: Uvula is midline and mucous membranes are normal. No oropharyngeal exudate, posteriororopharyngeal edema, posterior oropharyngeal erythema or tonsillar abscesses. Neck: Normal range of motion. Neck supple. Cardiovascular: Normal rate, regular rhythm, S1 normal and S2 normal. Exam reveals no gallop and nofriction rub. No murmur heard. Pulmonary/Chest: Effort normal and breath sounds normal. No accessory muscle usage. No tachypnea and no bradypnea. No respiratory distress. She has no decreased breath sounds. She has no wheezes. Shehas no rhonchi. She has no rales. Lymphadenopathy: Head (right side): No submental, no submandibular, no tonsillar, no preauricular, no posterior auricular and no occipital adenopathy present. Head (left side): No submental, no submandibular, no tonsillar, no preauricular, no posterior auricular and no occipital adenopathy present. She has no cervical adenopathy. Right: No supraclavicular adenopathy present. Left: No supraclavicular adenopathy present. Neurological: She is alert and oriented to person, place, and time. Skin: Skin is warm, dry and intact. No rash noted. Assessment/Plan: 1. Acute maxillary sinusitis we will get her on Omnicef 300 mg twice daily for the next 10 days. Did explain that some of this is viral in nature so we may not get significant relief with antibioticsbut since this is been going on and off for a month, we need to try penetrating of sinuses. She canalso brain picker [id number] cold and sinus medication. Told her I like Mucinex cold and sinus best for these types of symptoms but except her what she chooses. We will see her back as needed for this issue Diagnoses and all orders for this visit: Acute non-recurrent maxillary sinusitis - cefdinir (OMNICEF) 300 MG capsule; Take 1 (one) capsule (300 mg total) by mouth 2 (two) times a day . Nonsmoker Note: This dictation was generated using [employer] voice recognition software. Please excuse any grammatical or spelling errors that may have occurred using the system. documented in this encounter Advance Directives No Advanced Directives Records FoundLatest Code Status on File Code Status Date Activated Date Inactivated Comments Full Code 10/13/2015 10:25 AM 10/13/2015 5:10 PM Latest Code Status on File Code Status Date Activated Date Inactivated Comments Full Code 10/13/2015 10:25 AM 10/13/2015 5:10 PM Documents on File Type Date Recorded Patient Chief Of Staff Doctor Expl anation Advance Directives and Livin g Will 10/26/2018 8:34 AM Documents on File Type Date Recorded Patient Chief Of Staff Doctor Expl anation Advance Directives and Livin g Will 02/10/2019 8:34 AM Documents on File Type Date Recorded Patient Chief Of Staff Doctor Expl anation Advance Directives and Livin g Will 02/10/2019 8:34 AM Documents on File Type Date Recorded Patient Chief Of Staff Doctor Expl anation Advance Directives and Livin g Will 04/12/2019 5:41 AM Documents on File Type Date Recorded Patient Chief Of Staff Doctor Expl anation Advance Directives and Livin g Will 04/12/2019 5:41 AM Documents on File Type Date Recorded Patient Chief Of Staff Doctor Expl anation Advance Directives and Livin g Will 10/11/2019 10:19 PM Documents on File Type Date Recorded Patient Chief Of Staff Doctor Expl anation Advance Directives and Livin g Will 10/11/2019 10:19 PM Documents on File Type Date Recorded Patient Chief Of Staff Doctor Expl anation Advance Directives and Livin g Will 08/28/2021 9:58 AM Documents on File Type Date Recorded Patient Chief Of Staff Doctor Expl anation Advance Directives and Livin g Will 11/01/2021 10:55 AM Documents on File Type Date Recorded Patient Chief Of Staff Doctor Expl anation Advance Directives and Livin g Will 11/01/2021 10:55 AM Latest Code Status on File Date Activated Date Inactivated Comments 10/13/2015 10:25 AM 10/13/2015 5:10 PM Discharge Instructions * Attachments The following attachments cannot be sent through Care Everywhere. * COLON POLYPS (TAMAZIGHT) in this encounter* Instructions* Shameka Santacruz, RN - 02/10/2019 Carpal Tunnel Discharge Instructions Carpal tunnel syndrome is a condition caused by pressure to the median nerve within the wrist, or carpal tunnel. You might feel pain, a tingling sensation, numbness of the finers, weakness, or aching. Carpal tunnel syndrome is associtaed with multiple conditions including: Repetitive motion or overuse, fluid retention during , injury to the nerve in the carpal tunnel, or rheumatoid arthritis. In some patients, surgical release of the transverse carpal ligament is required. The surgery is performed either under local anesthesia or with some mild sedation. A small 2.5-3 cm incision is made in your palm and the ligament is released with the use of special magnification glasses to ensure noinjury to the underlying median nerve. Most patients will have immediate relief of their numbness and tingling, but it may take longer in some patients. We believe that patients, their desires, and anatomy are all unique. Dr. Ugarte evaluates each patient and creates a customized surgical plan for all of his patients. When should you call for help? Call your doctor now or seek immediate medical care if you have signs of infection such as: ? Increased pain, swelling, warmth, or redness in the area. Red streaks leading from the area. Pus draining from the wound. A new or higher fever. ? Carpal Tunnel Care Instructions Once home from the hospital Please relax for the next 24 hours Keep initial dressing in place until 24 hours after your surgery. You may then remove it by cuttingalong the side of the bandage next to your small finger. Elevate your hand above your heart as much as possible for the next 3 days. Do not lift more than 5 pounds for 14 days. You may remove the brown wrap in 1 day. Keep the arm dry. After the wrap is removed you may shower. Do not get the incision in dish water or bath water. Shower is OK. After removal of the dressing Once you remove the wraps you can shower but no swimming or tub baths for two weeks or until the incision is fully healed. Gently pat dry the incision Apply a small amount of Vaseline or antibiotic ointment then cover with a band-aid. After 2 days, you do not need a band-aid for medical reasons, though you can continue to use one for cosmetic reasons or if you work in a dirty environment. Follow-up as directed. If you have further questions, please call Dr. Ugarte's office at [phone] In an emergency after hours, please call the compotype operator at [phone] Reji Ugarte M.D. [facility] [place].Profilepasser [phone](fax) Learning About Anesthesia What is anesthesia? Anesthesia controls pain and can make you relax. It can also make you sleepy or forgetful, or unconscious. What are the risks of anesthesia? Major side effects are not common. But all types of anesthesia have some risk. Your risk depends onyour overall health. It also depends on the type of anesthesia you have and how you respond to it. Serious but rare risks include breathing problems, heart attack, stroke, and reaction to the medicine. What can you expect after having anesthesia? You may feel some of the effects of anesthesia for several hours. If you had local or regional anesthesia you may feel numb and have less feeling in part of your body. It may also take a few hours for you to be able to move and control your muscles as usual. When you first wake up from general anesthesia, you may be confused. Or it may be hard to think clearly. This is normal. It may take some time before the effects of the anesthesia are completely gone. Other common side effects of anesthesia include: Nausea and vomiting. This does not usually last long. It can be treated with medicine. A slight drop in body temperature. You may feel cold and shiver when you first wake up. A sore throat, if you had general anesthesia. Muscle aches or weakness. Feeling tired. Instructions for after anesthesia: Rest for 24 hours after your surgery and anesthesia. Do not drive. Do not drink alcoholic beverages during this time. You may experience a sore throat, sore jaw, stiff neck, or muscle aches after anesthesia. You may also experience dry mouth and nausea. These symptoms should resolve over the next few days. If nausea or vomiting persists after surgery you may need an anti-nausea medication such as Zofran or Phenergan. This can be called in during normal office hours by calling your surgeon s office. If it is after normal office hours you may need to go to the ER for this medication. documented in this encounter* Instructions* Shameka Santacruz RN - 04/12/2019 Carpal Tunnel Discharge Instructions Carpal tunnel syndrome is a condition caused by pressure to the median nerve within the wrist, or carpal tunnel. You might feel pain, a tingling sensation, numbness of the finers, weakness, or aching. Carpal tunnel syndrome is associtaed with multiple conditions including: Repetitive motion or overuse, fluid retention during , injury to the nerve in the carpal tunnel, or rheumatoid arthritis. In some patients, surgical release of the transverse carpal ligament is required. The surgery is performed either under local anesthesia or with some mild sedation. A small 2.5-3 cm incision is made in your palm and the ligament is released with the use of special magnification glasses to ensure noinjury to the underlying median nerve. Most patients will have immediate relief of their numbness and tingling, but it may take longer in some patients. We believe that patients, their desires, and anatomy are all unique. Dr. Ugarte evaluates each patient and creates a customized surgical plan for all of his patients. When should you call for help? Call your doctor now or seek immediate medical care if you have signs of infection such as: ? Increased pain, swelling, warmth, or redness in the area. Red streaks leading from the area. Pus draining from the wound. A new or higher fever. ? Carpal Tunnel Care Instructions Once home from the hospital Please relax for the next 24 hours Keep initial dressing in place until 24 hours after your surgery. You may then remove it by cuttingalong the side of the bandage next to your small finger. Elevate your hand above your heart as much as possible for the next 3 days. Do not lift more than 5 pounds for 14 days. You may remove the brown wrap in 1 day. Keep the arm dry. After the wrap is removed you may shower. Do not get the incision in dish water or bath water. Shower is OK. After removal of the dressing Once you remove the wraps you can shower but no swimming or tub baths for two weeks or until the incision is fully healed. Gently pat dry the incision Apply a small amount of Vaseline or antibiotic ointment then cover with a band-aid. After 2 days, you do not need a band-aid for medical reasons, though you can continue to use one for cosmetic reasons or if you work in a dirty environment. Follow-up as directed. If you have further questions, please call Dr. Ugarte's office at [phone] In an emergency after hours, please call the compotype operator at [phone] Reji Ugarte M.D. [facility] [place]Profile[employer]er [phone](fax) Learning About Anesthesia What is anesthesia? Anesthesia controls pain and can make you relax. It can also make you sleepy or forgetful, or unconscious. What are the risks of anesthesia? Major side effects are not common. But all types of anesthesia have some risk. Your risk depends onyour overall health. It also depends on the type of anesthesia you have and how you respond to it. Serious but rare risks include breathing problems, heart attack, stroke, and reaction to the medicine. What can you expect after having anesthesia? You may feel some of the effects of anesthesia for several hours. If you had local or regional anesthesia you may feel numb and have less feeling in part of your body. It may also take a few hours for you to be able to move and control your muscles as usual. When you first wake up from general anesthesia, you may be confused. Or it may be hard to think clearly. This is normal. It may take some time before the effects of the anesthesia are completely gone. Other common side effects of anesthesia include: Nausea and vomiting. This does not usually last long. It can be treated with medicine. A slight drop in body temperature. You may feel cold and shiver when you first wake up. A sore throat, if you had general anesthesia. Muscle aches or weakness. Feeling tired. Instructions for after anesthesia: Rest for 24 hours after your surgery and anesthesia. Do not drive. Do not drink alcoholic beverages during this time. You may experience a sore throat, sore jaw, stiff neck, or muscle aches after anesthesia. You may also experience dry mouth and nausea. These symptoms should resolve over the next few days. If nausea or vomiting persists after surgery you may need an anti-nausea medication such as Zofran or Phenergan. This can be called in during normal office hours by calling your surgeon s office. If it is after normal office hours you may need to go to the ER for this medication. documented in this encounter* Attachments The following attachments cannot be sent through Care Everywhere. * Panic Attacks (Lao) * Adjustment Disorder (Lao) documented in this encounter Summary Purpose Family History No Family History Records FoundNo Family History Records FoundNo Family History Records Found Additional Source Comments Reason for Visit (unrecogniz ed section and content) Reason Comments Constipation Rectal Bleeding Status Reason Specialty Diagnoses / Procedures Referred By Contact Referred To Contact Closed Gastroenterology Diagnoses Rectal bleeding Marta Gil PA-C [address] [address] Pito Hill MD [address] [place] [id number] Status Reason Specialty Diagnoses / Procedures Referre d By Contact Referred To Contact Diagnoses RECTAL BLEEDING [id number] Procedures COLONOSCOPY WITH ANESTHESIA Reason Comments Follow-up 3 mo f/u-pt states n umbing and tingling in bilateral hands worse Reason Comments Carpal Tunnel Status Reason Specialty Diagnoses / Procedures Referred By Contact Referred To Contact Closed Plastic Surgery Diagnoses Bilateral carpal tunnel syndrome Marta Gil PA-C [address] [address] Reji Ugarte II, MD [address] [place] [address] Status Reason Specialty Diagnoses / Procedures Referre d By Contact Referred To Contact Diagnoses BILATERAL CARPAL TUNNEL SYNDROME [id number] Procedures RIGHT HAND CARPAL TUNNEL RELEASE Reason Comments Post-op Status Reason Specialty Diagnoses / Procedures Referre d By Contact Referred To Contact Diagnoses BILATERAL CARPAL TUNNEL SYNDROME- [id number] L Procedures RELEASE CARPAL TUNNEL LEFT HAND Reason Comments Acute Visit pain on right side o f spine [id number] Reason Comments ED Follow-up Reason Comments Sinus Problem second one in a brandon h, started friday, has never had these many issues since she had nasal surg Cough Reason Comments Panic Attack Reason Comments Follow-up annual-needs labs do ne, always tired,lack of energy, depressed,x 1 year, Reason Comments Follow-up 3 mo had bladder sli ng surgery 03/27/21 Dr. Morgan Reason Comments Follow-up 3 month follow up Reason Comments Chest Pain Patient presents in the office for chest pain, states that she feels like someone is jabbing their finger in her chest Specialty Diagnoses / Procedures Referred By Juan appiah Referred To Contact Cardiology Diagnoses Discomfort in chest Beto Andrade MD [address] [facility] [address] [place] [address] [facility] Cardio [facility] [address] [place] [address] Referral ID Status Reason Start Date Expiration Date V isits Requested Visits Authorized [id number] Closed Specialty Services Required/Bridgette ent's Best Interest 08/28/2021 08/28/2022 1 1 Reason Onset Date Comments Medication Refill 11/06/2021 Reason Comments Follow-up Reason Comments Follow-up Pito Hill MD - 10/26/2018 9:16 AM Pito Hollis MD - 10/07/2018 3:07 PM Madalyn Martell CNP - 02/10/2019 7:08 AM EDT H&P Notes (unrecognized sect ion and content) INTERVAL HISTORY AND PHYSICAL Patient Name: Jes Caldwell Admit Date: [id number] MR #: [id number] : 1980 The H&P has been reviewed and the patient has been examined. I concur with the findings of the H&P. There are no significant changes. It is appropriate to proceed with the planned procedure. Pito Hill MD 10/26/2018 9:16 AM [facility] [address] [facility] GASTROENTEROLOGY [address] [facility] [id number] Jessteven Caldwell History: This 38-year-old lady has been having rectal bleeding more or less daily for last 3 months. According to her, the blood is bright red, and it drips. Says that her bowel movements are on the firm side, since she has been taking medication for depression. She gets rectal pain when she has bowel movements. Denies any weight loss. PAST MEDICAL HISTORY, PAST SURGERY, MEDICATIONS Reviewed with the patient. FAMILY HISTORY Mother had cancer not sure where the primary was. Says a lot of family members, grandmother, grandfather on both sides had cancer. LABORATORY DATA No recent blood tests available for review. IMPRESSION 1. Rectal bleeding with rectal pain. 2. History of colon polyp. 3. Depression 4. Gastritis. ADVISE Miralax 1 table spoon at night time Use Sitz bath daily We will schedule her for a colonoscopy. Risks, benefits of the procedure were explained to the patient. 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 Peripheral neuropathy legs, 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 of theighs Plantar fasciitis, bilateral has tried many treatments, plan surgery 10/13/[address] foot Past Surgical History: Procedure Laterality Date ADENOIDECTOMY 6 years old SECTION 2004 COLONOSCOPY N/A 05/02/2016 Procedure: COLONOSCOPY; Surgeon: Tulio Gunn MD; Location: [facility] Endo; Service: D&C (DIL & CURETTAGE, SHARP W/ SUCTION) 2013 EGD N/A 05/02/2016 Procedure: EGD; Surgeon: Tulio Gunn MD; Location: [facility] Endo; Service: ENDOSCOPY SINUS,SEPTO-NASAL RECONSTRUCTION N/A 01/13/2017 Procedure: ENDOSCOPIC SINUS SURGERY; Surgeon: Dioni Desouza MD; Location: [facility] Main OR; Service: FASCIECTOMY PLANTAR Right 10/13/2015 Procedure: FASCIECTOMY PLANTAR W TOPAZ RT; Surgeon: Ignacio Rabago DPM; Location: [facility] Main OR; Service: FASCIECTOMY PLANTAR Left 11/03/2015 Procedure: FASCIECTOMY PLANTAR WITH TOPAZ LEFT; Surgeon: Ignacio Rabago DPM; Location: [facility] Main OR; Service: FOOT SURGERY Bilateral 2014 shock wave therapy for platar fasciitis REPAIR SEPTUM NASAL N/A 01/13/2017 Procedure: REPAIR SEPTUM NASAL; Surgeon: Dioni Desouza MD; Location: [facility] Main OR; Service: TONSILLECTOMY 6 years old Allergies Allergen Reactions Hydrocodone GI Intolerance N/v percocet Hydrocodone-Acetaminophen GI Intolerance N/v Vicodon Prior to Admission medications Medication Sig Start Date End Date Taking? Authorizing Provider acyclovir (ZOVIRAX) 400 MG tablet Take 400 mg by mouth 2 (two) times a day Yes Santana Morgan MD fluticasone (FLONASE) 50 mcg/actuation nasal spray Instill 2 (two) sprays into each nostril daily. 03/31/18 Yes Beto Andrade MD ibuprofen (ADVIL,MOTRIN) 800 MG tablet Take 800 mg by mouth every 8 (eight) hours as needed. 03/27/18 Yes Santana Morgan MD multivitamin (THERAGRAN) per tablet 1 tablet daily Yes Sujit Madrid MD PARoxetine (PAXIL) 20 MG tablet Take 1 (one) tablet (20 mg total) by mouth daily . 09/22/18 Yes Beto Andrade MD polyethylene glycol (MIRALAX) 17 gram powder Take 17 (seventeen) g by mouth daily . 09/03/18 Yes Marta Gil PA-C Family History Problem Relation Age of Onset COPD Mother Cancer Mother COPD Father Cancer Maternal Grandmother Stroke Maternal Grandmother Cancer Maternal Grandfather Cancer Paternal Grandmother Diabetes Paternal Grandmother COPD Paternal Grandfather Cancer Paternal Grandfather Review of Systems Constitutional: Negative for unexpected weight change. Respiratory: Negative. Cardiovascular: Negative. Genitourinary: Negative. Musculoskeletal: Negative. Neurological: Negative. Psychiatric/Behavioral: Has depression reports that she drinks alcohol. reports that she has never smoked. She has never used smokeless tobacco. Ht 5' Wt 109.8 kg (242 lb) BMI 47.26 kg/m 109.8 kg (242 lb) 5' Body mass index is 47.26 kg/m . Physical Exam Constitutional: Patient is oriented to person, place, and time. Patient appears well Head: Normocephalic and atraumatic. Eyes: Pupils are equal, round, and reactive to light. Neck: No thyromegaly present. Cardiovascular: Normal rate, rhythm, and normal heart sounds. Exam reveals no friction rub. No murmur heard. Pulmonary/Chest: No respiratory distress. Patient has no wheezes. Abdominal: Soft. Normal appearance and bowel sounds are normal. Patient exhibits no distension and no mass. There is no hepatosplenomegaly. There is no tenderness. There is no rebound. Musculoskeletal: Normal range of motion. Patient exhibits no edema. Neurological: Patient is alert and oriented to person, place, and time. Skin: No rash noted. No erythema. Pito Hill MD in this encounter INTERVAL HISTORY AND PHYSICAL Patient Name: Jes Caldwell Admit Date: [id number] MR #: [id number] : 1980 The H&P has been reviewed and the patient has been examined. I concur with the findings of the H&P. There are no significant changes. It is appropriate to proceed with the planned procedure. Physical Examination: Vital Signs: Blood pressure 125/83, pulse 88, temperature 98.4 F (36.9 C), temperature source Oral, resp. rate 18, height 5', weight 112 kg (247 lb), SpO2 97 %. General: Alert, cooperative, no distress Lungs: Clear to auscultation bilaterally, respirations unlabored, normal respiratory effort Cardiovascular: RRR, no murmur, rub or gallop Denies any CP or SOB currently. Madalyn Galan CNP 02/10/2019 7:08 AM Jes Caldwell female 38 y.o. Chief Complaint Carpal Tunnel Brief Review of HPI, Focused Exam, and Assessment and Plan Jes Caldwell presents with ongoing slow and progressive carpal tunnel syndrome in bilateral hands, right worse than left. This has been ongoing and progressing for 5 years. She was initially seen by Dr. Asencio many years ago. She has worn splints at night and they have helped, but her symptoms have progressed. At this point, she is dropping things, losing things with the right hand. She is unable to do activities that she enjoys such as knitting and/or general childcare due to inability to rely on her right hand in particular. EXAM A detailed exam confirms positive wrist compression test, Phalen test and Tinel sign in the bilateral hands with the portable machine sander weaker on the right than the left. She does have retained thumb to small finger opposition on both and a normal Froment's sign. Normal hand to motion, flexion, extension, and vascular supply. PLAN At this time, will be for right hand carpal tunnel release. Allergies: Hydrocodone and Hydrocodone-acetaminophen Patient's Medications New Prescriptions No medications on file Previous Medications ACYCLOVIR (ZOVIRAX) 400 MG TABLET Take 400 mg by mouth 2 (two) times a day BUPROPION HCL (WELLBUTRIN ORAL) Take by mouth . ERGOCALCIFEROL (VITAMIN D2) 50,000 UNIT CAPSULE Take 1 (one) capsule (50,000 Units total) by mouth once a week for 8 doses . ESCITALOPRAM OXALATE (LEXAPRO) 20 MG TABLET Take 20 mg by mouth daily . FLUTICASONE PROPIONATE (FLONASE) 50 MCG/ACTUATION NASAL SPRAY Instill 2 (two) sprays into each nostril daily . IBUPROFEN (ADVIL,MOTRIN) 800 MG TABLET Take 800 mg by mouth every 8 (eight) hours as needed. MULTIVITAMIN (THERAGRAN) PER TABLET 1 tablet daily POLYETHYLENE GLYCOL (MIRALAX) 17 GRAM POWDER Take 17 (seventeen) g by mouth daily . Modified Medications No medications on file Discontinued Medications No medications on file Review of Systems Constitutional: Negative for chills and fever. HENT: Negative for nosebleeds, rhinorrhea, sinus pressure and sneezing. Eyes: Negative for pain, redness and itching. Respiratory: Negative for cough, choking, shortness of breath and wheezing. Cardiovascular: Negative for chest pain and palpitations. Gastrointestinal: Negative for nausea and vomiting. Endocrine: Negative for polydipsia and polyuria. Musculoskeletal: Positive for arthralgias. Skin: Positive for color change. Negative for wound. Neurological: Positive for numbness. Negative for dizziness, seizures, syncope, facial asymmetry and weakness. Active Ambulatory Problems Diagnosis Date Noted Diarrhea 04/18/2016 Hematochezia 04/18/2016 Epigastric abdominal pain 04/18/2016 Gastritis 05/08/2016 Colon polyp, hyperplastic 05/08/2016 Morbid obesity with body mass index (BMI) of 40.0 to 49.9 ([facility]) 01/08/2017 Allergic rhinitis 03/31/2018 Resolved Ambulatory Problems Diagnosis Date Noted Bronchitis 07/30/2016 Past Medical History: Diagnosis Date Arthritis Cancer ([facility]) Chronic pain disorder Chronic sinus infection Colon polyp Constipation COPD (chronic obstructive pulmonary disease) ([facility]) Headache Herpes History of blood transfusion HL (hearing loss) HPV (human papilloma virus) anogenital infection 10/24/2015 Obesity 12/2016 Peripheral neuropathy Plantar fasciitis, bilateral Rectal bleeding Social History Socioeconomic History Marital status: Single Spouse name: Not on file Number of children: Not on file Years of education: Not on file Highest education level: Not on file Occupational History Not on file Social Needs Financial resource strain: Not on file Food insecurity: Worry: Not on file Inability: Not on file Transportation needs: Medical: Not on file Non-medical: Not on file Tobacco Use Smoking status: Never Smoker Smokeless tobacco: Never Used Substance and Sexual Activity Alcohol use: Yes Comment: 5 a month, wine Drug use: No Sexual activity: Never Lifestyle Physical activity: Days per week: Not on file Minutes per session: Not on file Stress: Not on file Relationships Social connections: Talks on phone: Not on file Gets together: Not on file Attends protestant service: Not on file Active member of club or organization: Not on file Attends meetings of clubs or organizations: Not on file Relationship status: Not on file Other Topics Concern Not on file Social History Narrative Not on file Data Unavailable Family History Problem Relation Age of Onset COPD Mother Cancer Mother COPD Father Cancer Maternal Grandmother Stroke Maternal Grandmother Cancer Maternal Grandfather Cancer Paternal Grandmother Diabetes Paternal Grandmother COPD Paternal Grandfather Cancer Paternal Grandfather EXAM Vitals: 02/03/19 1133 BP: 123/81 Pulse: 85 Weight: 112 kg (247 lb) Height: 5' General: Normal Mood and affect, pleaseant demanor HEENT: Pupils Equal Round Reactive to Light; Extraocular Movements intact Chest: Normal Rise and Fall, Heart Rate is regular with normal rhythm. No swelling in the extremities Normal 2 + pulses, Normal Gross sensation to hands and feet. Normal Gait and stride, with normal arm and shoulder motion. Physical Exam Reji Ugarte II, MD documented in this encounter HISTORY AND PHYSICAL Patient Name: Jes Caldwell Admit Date: [id number] MR #: [id number] : 1980 Physicians: Beto Andrade MD (Family); No ref. provider found (Referring) Assessment and Plan: Left hand pain -NPO -TEDs Plan for left hand carpal tunnel release by Dr. Ugarte today OARRS report reviewed and assessed prior to prescribing narcotic. Per collaborating physician okay to prescribe narcotic for post op pain. Chief Complaint/Reason for Visit: surgery History of Present Illness: Jes Caldwell is a 38 y.o. female presenting from home for planned procedure with Dr. Ugarte. She last saw Dr. Ugarte in the office on 03/29 when surgery was discussed and risks reviewed. She denies any changes to medications or health since that office visit. She reports pain in left hand currently and intermittently has tingling. Denies any fevers, chills, sweats, chest pain, dyspnea, abd pain, nausea, vomiting, constipation, diarrhea, or urinary issues. Patient denies any personal or family history of complications with anesthesia, DVT/PE, or bleeding complications. Patient has a functional capacity of greater than 4 METs. History: Past Medical History: Diagnosis Date Anxiety Arthritis bursitis in hips Cancer (HCC) ca cells on cervix, dr's watching Chronic pain disorder something hurts daily Chronic sinus infection Colon polyp Constipation since taking paxil COPD (chronic obstructive pulmonary disease) (HCC) gets bronchitis yearly Depression Headache hx migraines Herpes History of blood transfusion 10 yrs ago after csection 2004 HL (hearing loss) ear drum from fluid ruptured 2016 HPV (human papilloma virus) anogenital infection 10/24/2015 Obesity 12/2016 BMI 46, frustrated, gained weight with 4 foot surgeries and lack of 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,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 Peripheral neuropathy legs, 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 of theighs Plantar fasciitis, bilateral has tried many treatments, plan surgery 10/13/[address] foot Rectal bleeding Past Surgical History: Procedure Laterality Date ADENOIDECTOMY 6 years old CARPAL TUNNEL RELEASE OPEN Right 02/10/2019 Procedure: RIGHT HAND CARPAL TUNNEL RELEASE; Surgeon: Reji Ugarte II, MD; Location: [facility] Main OR; Service: Plastics SECTION 2004 COLONOSCOPY N/A 05/02/2016 Procedure: COLONOSCOPY; Surgeon: Tulio Gunn MD; Location: [facility] Endo; Service: COLONOSCOPY 10/2018 COLONOSCOPY N/A 10/26/2018 Procedure: COLONOSCOPY WITH ANESTHESIA; Surgeon: Pito Hill MD; Location: [facility] Endo; Service: Gastroenterology D&C (DIL & CURETTAGE, SHARP W/ SUCTION) 2013 EGD N/A 05/02/2016 Procedure: EGD; Surgeon: Tulio Gunn MD; Location: [facility] Endo; Service: ENDOSCOPY SINUS,SEPTO-NASAL RECONSTRUCTION N/A 01/13/2017 Procedure: ENDOSCOPIC SINUS SURGERY; Surgeon: Dioni Desouza MD; Location: [facility] Main OR; Service: FASCIECTOMY PLANTAR Right 10/13/2015 Procedure: FASCIECTOMY PLANTAR W TOPAZ RT; Surgeon: Ignacio Rabago DPM; Location: [facility] Main OR; Service: FASCIECTOMY PLANTAR Left 11/03/2015 Procedure: FASCIECTOMY PLANTAR WITH TOPAZ LEFT; Surgeon: Ignacio Rabago DPM; Location: [facility] Main OR; Service: FOOT SURGERY Bilateral 2014 shock wave therapy for platar fasciitis REPAIR SEPTUM NASAL N/A 01/13/2017 Procedure: REPAIR SEPTUM NASAL; Surgeon: Dioni Desouza MD; Location: [facility] Main OR; Service: TONSILLECTOMY 6 years old TUBAL LIGATION 2018 Family History Problem Relation Age of Onset COPD Mother Cancer Mother COPD Father Cancer Maternal Grandmother Stroke Maternal Grandmother Cancer Maternal Grandfather Cancer Paternal Grandmother Diabetes Paternal Grandmother COPD Paternal Grandfather Cancer Paternal Grandfather Social History Socioeconomic History Marital status: Single Spouse name: Not on file Number of children: Not on file Years of education: Not on file Highest education level: Not on file Occupational History Not on file Social Needs Financial resource strain: Not on file Food insecurity: Worry: Not on file Inability: Not on file Transportation needs: Medical: Not on file Non-medical: Not on file Tobacco Use Smoking status: Never Smoker Smokeless tobacco: Never Used Substance and Sexual Activity Alcohol use: Yes Comment: 5 a month, wine Drug use: No Sexual activity: Never Lifestyle Physical activity: Days per week: Not on file Minutes per session: Not on file Stress: Not on file Relationships Social connections: Talks on phone: Not on file Gets together: Not on file Attends protestant service: Not on file Active member of club or organization: Not on file Attends meetings of clubs or organizations: Not on file Relationship status: Not on file Other Topics Concern Not on file Social History Narrative Not on file Living Arrangements: Children Support Systems: Children Allergy Information: I have reviewed the patient's allergies. Hydrocodone-acetaminophen and Percocet [oxycodone-acetaminophen] Home Medications: Outpatient Medications as of 04/12/2019 Medication Sig acyclovir (ZOVIRAX) 400 MG tablet Take 400 mg by mouth 2 (two) times a day bupropion HCl (WELLBUTRIN ORAL) Take by mouth . ergocalciferol (VITAMIN D2) 50,000 unit capsule Take 1 (one) capsule (50,000 Units total) by mouth once a week for 8 doses . escitalopram oxalate (LEXAPRO) 20 MG tablet Take 20 mg by mouth daily . fluticasone propionate (FLONASE) 50 mcg/actuation nasal spray Instill 2 (two) sprays into each nostril daily . ibuprofen (ADVIL,MOTRIN) 800 MG tablet Take 800 mg by mouth every 8 (eight) hours as needed. multivitamin (THERAGRAN) per tablet 1 tablet daily polyethylene glycol (MIRALAX) 17 gram powder Take 17 (seventeen) g by mouth daily . Review of Systems: The following system(s) were reviewed and pertinent positives were noted in the HPI section: Constitutional, Eyes, ENT, CV, Resp, GI, , Neuro, Musculoskeletal, Skin, Endocrine, Hematalogial/Lymphatic and Psychiatric. Physical Examination: Vital Signs: Blood pressure 112/77, pulse 75, temperature 98 F (36.7 C), temperature source Oral, height 5', weight 112 kg (247 lb), last menstrual period 03/10/2019, SpO2 98 %. General: Alert, cooperative, no distress Head: Normocephalic, without obvious abnormality, atraumatic Eyes: PERRL, conjunctiva/corneas clear Throat: Lips, mucosa, and tongue normal Neck: Supple, symmetrical, trachea midline Back: Symmetric, no curvature, ROM normal, no CVA tenderness Lungs: Clear, diminished to auscultation bilaterally, respirations unlabored, normal respiratory effort Chest Wall: No tenderness or deformity Cardiovascular: RRR, no murmur, rub or gallop Abdomen: Soft, obese, non-tender, active bowel sounds Extremities: Normal, atraumatic, no cyanosis or edema Skin: Skin color, texture, turgor normal, no rashes or lesions Musculoskeletal: Full range of motion of all extremities Neurologic: A&O X 3 Psych: Mood and affect appropriate Laboratory and Additional Data Reviewed: Invalid input(s): CO2, LABALBU No orders to display Laboratory 04/12/19 6:30 AM Medications 04/12/19 6:30 AM Transcriptions 04/12/19 6:30 AM documented in this encounter Nahed Paulson RN - 10/26/2018 10:49 AM Jordyn Bhatti RN - 10/19/2018 9:56 AM Florencia Padilla RN - 02/03/2019 2:00 PM Jordyn Wiggins RN - 04/07/2019 9:35 AM EDT Nursing Notes (unrecognized section and content) D/C instructions explained and questions answered. Pt up to side of bed with steady gait to get dressed. Pt refused w/c and left unit ambulatory accompanied by mother. Prior to Endo Please do not eat or drink after midnight on the evening prior to your procedure. Please complete prep if indicated and follow instructions given by physician. You may brush your teeth the morning of your procedure but be sure not to swallow. No smoking or gum chewing after midnight on the evening prior to your procedure. Please do not place any pins or barrettes in your hair or apply any makeup on the morning of your procedure. Please remove all piercing's and jewelry on the morning of procedure. Please shower or bathe the morning of your procedure, but do not apply any lotions or powder or makeup. If you currently utilize a walker, cane, crutches, wheelchair, or other assistive device, please bring these items with you on the day of your procedure. Please bring your glasses/contacts and hearing aids with you - and if possible the cases that accompany these items. Please bring an updated medication list the day of your procedure of all medications, vitamins, supplements, and over the counter medications you are currently taking. Please wear comfortable clothing and short sleeve shirt. Remember to bring your insurance card and photo ID on the day of your procedure. Parking at [place] is free - you may park and then proceed to Registration in the [facility] front lobby. After your procedure You must have an adult present at discharge to drive you home. in this encounter Prior to Surgery Please do not eat or drink after midnight on the evening prior to your surgery. You may brush your teeth the morning of surgery but be sure not to swallow. No smoking or gum chewing after midnight on the evening prior to your surgery. Please do not place any pins or barrettes in your hair or apply any makeup on the morning of surgery. Please remove all nail mongolian, and if the operative site is your hand, please remove all artificial nails. Please remove all piercing's and jewelry on the morning of surgery. Please shower or bathe the night before/morning of your surgery, but do not apply any lotions, makeup or powder. Please use [facility] shower with provided instructions if indicated by physician. If you currently utilize a walker, cane, crutches, wheelchair, or other assistive device, please bring these items with you on the day of surgery. If you use a CPAP, please bring this with you the day of surgery. Please bring your glasses/contacts and hearing aids with you - and if possible the cases that accompany these items. Pediatric patients (ages 12 and under) must be accompanied by an adult who will stay with that patient prior to surgery. Please bring an updated medication list the day of surgery of all medications, vitamins, supplements, and over the counter medications you are currently taking. Please bring baby food, bottles, underwear for small children. Please wear loose, comfortable, appropriate clothing and footwear for discharge. Remember to bring your insurance card and photo ID on the day of surgery. Parking at [place] is free - you may park and then proceed to Registration in the [facility] front lobby. Please take the following medications the morning of surgery with a sip of water unless otherwise instructed by surgeon/physician: none, takes at night Pre-Operative Directions for Using Chlorhexidine (Hibiclens) Skin Cleanser Hibiclens reduces the number of germs on your skin, which will decrease the chances of developing a surgical site infection. By following the instructions below, you can be sure your skin is as free of germs as possible before your surgery and help prevent infections. DO NOT USE if you are allergic to chlorhexidine gluconate. DO NOT USE in the genital (private) areas. DO NOT USE near the eyes or ears to avoid permanent injury to those areas. 1. Shower the night before surgery AND in the morning before leaving for the hospital. 2. For each shower, you will use one half (1/2) of the Hibiclens bottle, 2 washcloths and a clean towel. 3. Shampoo and rinse hair as you normally do 4. Wash face, neck and genital area with one washcloth using an antibacterial (i.e. Dial) soap. Rinse well. Set this washcloth aside. 5. Work up a good lather on the 2nd (clean) washcloth using the bottle of Hibiclens. 6. Turn the water off to prevent rinsing the soap off too soon. 7. Gently scrub from the neck down for 5 minutes, paying special attention to the area where the surgery will be. 8. Turn water back on the rinse thoroughly. 9. Pat dry using a clean towel and put on clean clothes. 10. The Hibiclens may make your skin fell dry, but DO NOT use and powder or lotions, as this will prevent it from working as good as it should. After your surgery You must have an adult present at discharge to drive you home. documented in this encounter Prior to Surgery Please do not eat or drink after midnight on the evening prior to your surgery. You may brush your teeth the morning of surgery but be sure not to swallow. No smoking or gum chewing after midnight on the evening prior to your surgery. Please do not place any pins or barrettes in your hair or apply any makeup on the morning of surgery. Please remove all nail mongolian, and if the operative site is your hand, please remove all artificial nails. Please remove all piercing's and jewelry on the morning of surgery. Please shower or bathe the night before/morning of your surgery, but do not apply any lotions, makeup or powder. Please use Hibiclens shower with provided instructions if indicated by physician. If you currently utilize a walker, cane, crutches, wheelchair, or other assistive device, please bring these items with you on the day of surgery. If you use a CPAP, please bring this with you the day of surgery. Please bring your glasses/contacts and hearing aids with you - and if possible the cases that accompany these items. Pediatric patients (ages 12 and under) must be accompanied by an adult who will stay with that patient prior to surgery. Please bring an updated medication list the day of surgery of all medications, vitamins, supplements, and over the counter medications you are currently taking. Please bring baby food, bottles, underwear for small children. Please wear loose, comfortable, appropriate clothing and footwear for discharge. Remember to bring your insurance card and photo ID on the day of surgery. Parking at [place] is free - you may park and then proceed to Registration in the [facility] front lobby. Please take the following medications the morning of surgery with a sip of water unless otherwise instructed by surgeon/physician:none After your surgery You must have an adult present at discharge to drive you home. documented in this encounter Op Note - Reji Ugarte II, MD - 02/10/2019 7:34 AM EDTOp Note - Reji Ugarte II, MD - 04/12/2019 7:24 AM EDT Miscellaneous Notes (unrecog nized section and content) OPERATIVE NOTE Patient Name: Jes Caldwell Admit Date: [id number] MR #: [id number] : 1980 Physicians: Beto Andrade MD (Family); No ref. provider found (Referring) Date of Service: 02/10/2019 Clinician: Reji Ugarte II, MD OR Staff: Continuous Still Operator: Sendy Bird RN Scrub Person: ST Sarath Anesthesia Staff: Anesthesiologist: Endy Nur MD Student Nurse [place] Straightener: Derrick Becerra Surgeon(s):Surgeon(s) and Role: * Reji Ugarte II, MD - Primary SURGEON Reji Ugarte MD POSTOPERATIVE DIAGNOSIS Right hand carpal tunnel syndrome. PREOPERATIVE DIAGNOSIS Right hand carpal tunnel syndrome. PROCEDURE PERFORMED Right hand carpal tunnel release. ANESTHESIA Monitored anesthesia care and local anesthesia. TOURNIQUET TIME Total Tourniquet Time Documented: Arm (Right) - 4 minutes Total: Arm (Right) - 4 minutes TOURNIQUET PRESSURE 200mmhg COMPLICATIONS None. OPERATIVE NOTE IN DETAIL The patient was brought to the operating room. The hand was prepped and draped in sterile fashion. Local anesthesia was instilled. The area was incised in the palm with a longitudinal incision, carried down through the subcutaneous tissues. The flexor retinaculum was identified. This was divided sharply under direct loupe vision, proximally and distally, to ensure a full and complete release. The area was irrigated and closed with 4-0 nylon in interrupted fashion. The patient tolerated the procedure well and will follow up with me in 2 weeks. NOTE: At the end of the procedure the patient was able to open and close the fingers and oppose the thumb to the small finger. The nerve was noted to be protected. documented in this encounter OPERATIVE NOTE Patient Name: Jes Caldwell Admit Date: [id number] MR #: [id number] : 1980 Physicians: Beto Andrade MD (Family); No ref. provider found (Referring) Date of Service: 04/12/2019 Clinician: Reji Ugarte II, MD OR Staff: Continuous Still Operator: Sendy Bird RN Scrub Person: ST Sarath Nurse Float: Ana Vega RN Anesthesia Staff: RAILROAD SWITCHMAN: Nahomi Mclain CRNA Surgeon(s):Surgeon(s) and Role: * Reji Ugarte II, MD - Primary SURGEON Reji Ugarte MD POSTOPERATIVE DIAGNOSIS Left hand carpal tunnel syndrome. PREOPERATIVE DIAGNOSIS Left hand carpal tunnel syndrome. PROCEDURE PERFORMED Left hand carpal tunnel release. ANESTHESIA Monitored anesthesia care and local anesthesia. TOURNIQUET TIME Total Tourniquet Time Documented: Arm (Left) - 3 minutes Total: Arm (Left) - 3 minutes TOURNIQUET PRESSURE 205mmhg COMPLICATIONS None. OPERATIVE NOTE IN DETAIL The patient was brought to the operating room. The hand was prepped and draped in sterile fashion. Local anesthesia was instilled. The area was incised in the palm with a longitudinal incision, carried down through the subcutaneous tissues. The flexor retinaculum was identified. This was divided sharply under direct loupe vision, proximally and distally, to ensure a full and complete release. The area was irrigated and closed with 4-0 nylon in interrupted fashion. The patient tolerated the procedure well and will follow up with me in 2 weeks. NOTE: At the end of the procedure the patient was able to open and close the fingers and oppose the thumb to the small finger. The nerve was noted to be protected. documented in this encounter Madyson James RN - 10/11/2019 11:27 PM Shana Patel MD - 10/11/2019 11:14 PM Madyson Turk RN - 10/11/2019 9:56 PM Madyson Turk RN - 10/11/2019 9:52 PM EST ED Notes (unrecognized secti on and content) Pt reports feeling better. She has stopped crying and her breathing has slowed down to a normal rate. Pt does not appear to be in distress at this time. [facility] ED Physician Note: NAME: Jes Caldwell 39 y.o. CSN: [id number] PCP: Beto Andrade MD Clinical Impression: 1. Panic Attack 2. Adjustment disorder, unspecified type ED Disposition ED Disposition Condition Comment Discharge Stable Jes Caldwell discharged to home/self care in stable condition. ED Course / Medical Decision Making: MDM Number of Diagnoses or Management Options Adjustment disorder, unspecified type: Panic Attack: She denies suicidal ideation, homicidal ideation, or hallucinations. Her symptoms have resolved. She was given an oral dose of Ativan in the emergency department. She has called a supportive friend to drive her home. She intends to take her prescription medications when she gets home and go to sleep. She has a counseling appointment in the morning. The patient has been informed that they may have pre-hypertension or hypertension based on a blood pressure reading in the Emergency Department. I recommend that the patient call the primary care provider listed on their discharge instructions or a physician of their choice as soon as possible to arrange follow-up in the next 4 weeks for further evaluation of possible pre-hypertension or hypertension. . If patient is currently a smoker or uses a tobacco product, I did credit counselor them on benefits and resources of smoking/tobacco use cessation. History: Chief Complaint: Panic Attack HPI: The history was obtained from the patient. She is a 39 y.o. female who presents with a chief complaint of Panic Attack. HPI This is a 39-year-old female with a history of anxiety and panic attacks presenting to the emergency department by EMS for evaluation after her typical panic attack. She states that both of her parents have been hospitalized at [place] all weekend. She has been away with them for most of the weekend. She has been without any of her prescription medications, including Wellbutrin and Trileptal since Friday. She returned home this afternoon to find that her fianc was missing and was not responding to her calls and texts. She states that he is a recovering addict, and she was concerned that he may have relapsed. She found him at his mother's home, but he refused to speak to her. His stepdad came out and asked her to leave. She began crying and hyperventilating in the driveway. Her hands, feet, and face began tingling. She was seeing stars. They called the police on her. She called an ambulance to bring her to the emergency department. She states that her symptoms resolved after approximately 30 minutes. She would like to go home and sleep. She has her prescription medications at home and intends to take them. She has a counseling appointment tomorrow at 10 AM. She denies suicidal ideation, homicidal ideation, or hallucinations. PMHx: Past Medical History: Diagnosis Date Anxiety Arthritis bursitis in hips Cancer (HCC) ca cells on cervix, dr's watching Chronic pain disorder something hurts daily Chronic sinus infection Colon polyp Constipation since taking paxil COPD (chronic obstructive pulmonary disease) (HCC) gets bronchitis yearly Depression Headache hx migraines Herpes History of blood transfusion 10 yrs ago after csection 2004 HL (hearing loss) ear drum from fluid ruptured 2016 HPV (human papilloma virus) anogenital infection 10/24/2015 Obesity 12/2016 BMI 46, frustrated, gained weight with 4 foot surgeries and lack of 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,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 Peripheral neuropathy legs, side of theighs Plantar fasciitis, bilateral has tried many treatments, plan surgery 10/13/15 on rt foot Rectal bleeding PMSx: Past Surgical History: Procedure Laterality Date ADENOIDECTOMY 6 years old CARPAL TUNNEL RELEASE OPEN Right 02/10/2019 Procedure: RIGHT HAND CARPAL TUNNEL RELEASE; Surgeon: Reji Ugarte II, MD; Location: [facility] Main OR; Service: Plastics CARPAL TUNNEL RELEASE OPEN Left 04/12/2019 Procedure: RELEASE CARPAL TUNNEL LEFT HAND; Surgeon: Reji Ugarte II, MD; Location: [facility] Main OR; Service: Plastics SECTION 2004 COLONOSCOPY N/A 05/02/2016 Procedure: COLONOSCOPY; Surgeon: Tulio Gunn MD; Location: [facility] Endo; Service: COLONOSCOPY 10/2018 COLONOSCOPY N/A 10/26/2018 Procedure: COLONOSCOPY WITH ANESTHESIA; Surgeon: Pito Hill MD; Location: [facility] Endo; Service: Gastroenterology D&C (DIL & CURETTAGE, SHARP W/ SUCTION) 2013 EGD N/A 05/02/2016 Procedure: EGD; Surgeon: Tulio Gunn MD; Location: [facility] Endo; Service: ENDOSCOPY SINUS,SEPTO-NASAL RECONSTRUCTION N/A 01/13/2017 Procedure: ENDOSCOPIC SINUS SURGERY; Surgeon: Dioni Desouza MD; Location: [facility] Main OR; Service: FASCIECTOMY PLANTAR Right 10/13/2015 Procedure: FASCIECTOMY PLANTAR W TOPAZ RT; Surgeon: Ignacio Rabago DPM; Location: [facility] Main OR; Service: FASCIECTOMY PLANTAR Left 11/03/2015 Procedure: FASCIECTOMY PLANTAR WITH TOPAZ LEFT; Surgeon: Ignacio Rabago DPM; Location: [facility] Main OR; Service: FOOT SURGERY Bilateral 2014 shock wave therapy for platar fasciitis REPAIR SEPTUM NASAL N/A 01/13/2017 Procedure: REPAIR SEPTUM NASAL; Surgeon: Dioni Desouza MD; Location: [facility] Main OR; Service: TONSILLECTOMY 6 years old TUBAL LIGATION 2018 FAM. Hx: Family History Problem Relation Age of Onset COPD Mother Cancer Mother COPD Father Cancer Maternal Grandmother Stroke Maternal Grandmother Cancer Maternal Grandfather Cancer Paternal Grandmother Diabetes Paternal Grandmother COPD Paternal Grandfather Cancer Paternal Grandfather SOC. Hx: Social History Socioeconomic History Marital status: Single Spouse name: Not on file Number of children: Not on file Years of education: Not on file Highest education level: Not on file Occupational History Not on file Social Needs Financial resource strain: Not on file Food insecurity Worry: Not on file Inability: Not on file Transportation needs Medical: Not on file Non-medical: Not on file Tobacco Use Smoking status: Never Smoker Smokeless tobacco: Never Used Substance and Sexual Activity Alcohol use: Yes Comment: 5 a month, wine Drug use: No Sexual activity: Never Lifestyle Physical activity Days per week: Not on file Minutes per session: Not on file Stress: Not on file Relationships Social connections Talks on phone: Not on file Gets together: Not on file Attends protestant service: Not on file Active member of club or organization: Not on file Attends meetings of clubs or organizations: Not on file Relationship status: Not on file Other Topics Concern Not on file Social History Narrative Not on file MEDs: Previous Medications Medication Sig acyclovir (ZOVIRAX) 400 MG tablet Take 400 mg by mouth 2 (two) times a day bupropion HCl (WELLBUTRIN ORAL) Take by mouth . cefdinir (OMNICEF) 300 MG capsule Take 1 (one) capsule (300 mg total) by mouth 2 (two) times a day . ergocalciferol (VITAMIN D2) 50,000 unit capsule Take 1 (one) capsule (50,000 Units total) by mouth once a week for 8 doses . escitalopram oxalate (LEXAPRO) 20 MG tablet Take 20 mg by mouth daily . fluticasone propionate (FLONASE) 50 mcg/actuation nasal spray Instill 2 (two) sprays into each nostril daily . ibuprofen (ADVIL,MOTRIN) 800 MG tablet Take 800 mg by mouth every 8 (eight) hours as needed. multivitamin (THERAGRAN) per tablet 1 tablet daily ondansetron (ZOFRAN) 8 MG tablet Take 1 (one) tablet (8 mg total) by mouth every 8 (eight) hours as needed for nausea . OXcarbazepine (TRILEPTAL) 300 MG tablet Take 300 mg by mouth 2 (two) times a day . polyethylene glycol (MIRALAX) 17 gram powder Take 17 (seventeen) g by mouth daily . (Patient not taking: Reported on 07/28/2019 .) ALL: Allergies Allergen Reactions Hydrocodone-Acetaminophen GI Intolerance N/v Vicodon Percocet [Oxycodone-Acetaminophen] GI Intolerance Nausea/vomiting ROS: Review of Systems Constitutional: Negative for chills, fever and unexpected weight change. HENT: Negative for ear pain, rhinorrhea and sore throat. Eyes: Negative for pain, redness and visual disturbance. Respiratory: Negative for cough, shortness of breath and wheezing. Cardiovascular: Negative for chest pain, palpitations and leg swelling. Gastrointestinal: Negative for abdominal pain, constipation, diarrhea, nausea and vomiting. Genitourinary: Negative for dysuria, hematuria and urgency. Musculoskeletal: Negative for arthralgias and joint swelling. Skin: Negative for rash. Neurological: Negative for dizziness, seizures and headaches. Psychiatric/Behavioral: Positive for sleep disturbance. Negative for hallucinations and suicidal ideas. The patient is nervous/anxious. All other systems reviewed and are negative. Physical Exam: Patient Vitals for the past 24 hrs: BP Temp Temp src Pulse Resp SpO2 Height Weight 10/11/19 2245 (!) 137/94 86 96 % 10/11/19 2230 (!) 142/96 85 95 % 10/11/19 2216 (!) 132/100 74 99 % 10/11/19 2147 97.6 F (36.4 C) Oral (!) 104 (!) 20 98 % 5' 108.9 kg (240 lb) Physical Exam Vitals signs reviewed. Constitutional: Appearance: Normal appearance. She is well-developed. HENT: Head: Normocephalic and atraumatic. Right Ear: Tympanic membrane normal. Left Ear: Tympanic membrane normal. Nose: Nose normal. Mouth/Throat: Pharynx: Uvula midline. Eyes: General: No scleral icterus. Pupils: Pupils are equal, round, and reactive to light. Neck: Musculoskeletal: Neck supple. Cardiovascular: Rate and Rhythm: Normal rate and regular rhythm. Heart sounds: Normal heart sounds. Pulmonary: Effort: Pulmonary effort is normal. Breath sounds: Normal breath sounds. Abdominal: General: Bowel sounds are normal. Palpations: Abdomen is soft. Abdomen is not rigid. There is no pulsatile mass. Tenderness: There is no abdominal tenderness. There is no guarding or rebound. Musculoskeletal: General: No tenderness. Skin: General: Skin is warm and dry. Neurological: Mental Status: She is alert and oriented to person, place, and time. Cranial Nerves: No cranial nerve deficit. Sensory: No sensory deficit. Coordination: Coordination normal. Deep Tendon Reflexes: Reflexes are normal and symmetric. Psychiatric: Attention and Perception: Attention normal. Mood and Affect: Mood is anxious. Affect is tearful. Speech: Speech normal. Behavior: Behavior is cooperative. Thought Content: Thought content does not include homicidal or suicidal ideation. Laboratory & Radiological Imaging (if done): Labs Reviewed - No data to display No orders to display Procedures: Procedures Shana Aviles MD ED Physician [facility] Emergency Department (Please note that portions of this note have been completed with a voice recognition software. Efforts were made to correct any errors, but occasionally words are mis-transcribed.) Shana Aviles MD 10/12/19 0021 Unable to obtain a BP due to pt tensing up and getting an innaccurate reading (149/111), letting pt calm down and relax. Pt denies suicidal thoughts. She reports things have been hard the last few weeks. She is tearful but answers no to all psych risk questions. She reports im supposed to see my psychiatrist tomorrow. Pt reports my lifes falling apart, both of my parents are in [place], [employer]ani took all of the money and I thought he was getting high. Pt reports Armani was her fiance up until today. I asked him for money to go see my mom and he made it sound like he wasn't coming home and I asked his boss and he didn't work today. No one will answer me. Pt continues to cry and breathe rapidly. She reports not taking her meds for a couple days. EMS reports she was at her ex-boyfriends house shes not supposed to be there, we found her in her car and she was hysterical. This nurse asked pt why she went there she said because I thought he was overdosing. This nurse asked pt what happened, she states he never came outside. Pt presents to ED via squad, crying and breathing rapidly. She reports I can't feel my face. Why can't I feel my face? This nurse educated pt on slowing her breathing. Bed: 02 Expected date: Expected time: Means of arrival: Comments: 29 documented in this encounter Care Teams (unrecognized sec tion and content) Open Hearth Melter Relationship Specialty Start Date End Date Beto Andrade MD [address] [id number] PCP - General Internal Medicine 04/18/16 Santana Morgan MD [address] [place] [address] Consulting Physician Obstetrics/Gynecology 03/16/21 Open [employer]earth Melter Relationship Specialty Start Date End Date Beto Andrade MD [address] [place] [address] PCP - General Internal Medicine 04/18/16 Santana Morgan MD [address] [place] [address] Consulting Physician Obstetrics/Gynecology 03/16/21 Open Hearth Melter Relationship Specialty Start Date End Date Beto Andrade MD [address] [place] [address] PCP - General Internal Medicine 04/18/16 Santana Morgan MD [address] [place] [address], [place] [address] Consulting Physician Obstetrics/Gynecology 03/16/21 Open Hearth Melter Relationship Specialty Start Date End Date Beto Andrade MD [address] [place] [address] PCP - General Internal Medicine 04/18/16 Santana Morgan MD [address] [place] [address] Consulting Physician Obstetrics/Gynecology 03/16/21 Open Hearth Melter Relationship Specialty Start Date End Date Beto Andrade MD [address] [place] [address] PCP - General Internal Medicine 04/18/16 Santana Morgan MD [address] [place] [address] Consulting Physician Obstetrics/Gynecology 03/16/21 Open Hearth Melter Relationship Specialty Start Date End Date Beto Andrade MD [address] [place] [address] PCP - General Internal Medicine 04/18/16 Santana Morgan MD [address] [place] [address] Consulting Physician Obstetrics/Gynecology 03/16/21 INFORMATION SOURCE (unrecogn ized section and content) DATE CREATED AUTHOR 01/14/2022 [facility] DATE CREATED AUTHOR AUTHOR'S ORGANIZ ATION 05/12/2022 [facility] DATE CREATED AUTHOR AUTHOR'S ORGANIZ ATION 05/14/2022 [facility] FOR RECORDS PERTAINING TO PATIENTS WHO ARE OR HAVE BEEN ENROLLED IN A CHEMICAL DEPENDENCY/SUBSTANCEABUSE PROGRAM, SOME INFORMATION MAY BE OMITTED. This clinical summary was aggregated from multiple sources. Caution should be exercised in using it in the provision of clinical care. This summary normalizes information from multiple sources, and as a consequence, information in this document may materially change the coding, format and clinical context of patient data. In addition, data may be omitted in some cases. CLINICAL DECISIONS SHOULD BE BASED ON THE PRIMARY CLINICAL RECORDS. [employer] [facility]. provides no warranty or guarantee of the accuracy or completeness of information in this document.
--- NOTE | 2025-06-18 19:51 | EDS_ITS ---
HPI History of Present Illness Chief Complaint: Lower Extremity Injury PFSH PFS Medical History no medical history Allergy/AdvReac Type Severity Reaction Status Date / Time Opioids - Morphine Analogues AdvReac Mild INTOLERANC Verified 06/18/25 18:55 (narcotics) E Social History Smoking Status: Unknown if ever smoked EXAM Physical Exam Const Vital Signs: 06/18/25 18:55 Temperature 98 F Temperature Source Temporal Pulse Rate 88 Respiratory Rate 16 Blood Pressure 122/80 H Blood Pressure Mean 94 Pulse Ox 97 Oxygen Delivery Method Room Air [facility] Narrative Medical decision making narrative: HISTORY OF PRESENT ILLNESS: Chief complaint: Leg pain 44-year-old female presents with atraumatic right leg pain. Patient notes she has had 5 years of intermittent pain. She notes over the last several weeks has gotten worse. Chest pain is worse with knee flexion. Denies falls or trauma. Patient denies active cancer, being bedridden for greater than 3 days, denies unilateral leg swelling, denies any varicose veins, denies any calf tenderness, denies tenderness along deep venous system. Denies major surgery within 12 weeks, recent paralysis, previous DVT. Denies recent rashes or fever. REVIEW OF SYSTEMS: Pertinent positives: Leg pain Pertinent negatives: PHYSICAL EXAM: Nursing triage notes reviewed, Vital signs reviewed Constitutional: please see mdm Extremities: No edema Neuro: Intact sensation L1-S1 dermatomal distributions. Intact 5/5 strength in hip flexion (T12-L3). Knee extension (L2-L4). Ankle dorsiflexion (L4-L5). Ankle plantar flexion (S1). Great toe extension (L5). 2+ patellar and Achilles DTRs. Skin: No rash or lesions noted MEDICAL DECISION MAKING: Chief Complaint: please see HPI External records reviewed: Reviewed prior imaging studies Factors affecting care: none Social determinants of health: none History obtained from others: none Consults: none [facility] Narrative: The patient was initially hemodynamically stable, afebrile and nontoxic- appearing. Right lower extremity was warm and well-perfused. Right lower extremity is neurovascularly intact. There was TTP over vastus lateralis on the right. No overlying skin changes were noted. Compartments were soft. There is obvious signs of trauma. I considered the following differential diagnosis: Musculoskeletal inflammation, quadriceps tendon strain, cellulitis, necrotizing fasciitis, femur fracture or dislocation, arterial occlusion, DVT Patient primarily was concerned about a DVT after discussion with coworkers. Unfortunately we do not have duplex ultrasound capability at [facility] at this hour. The patient was given an order for an outpatient ultrasound to be obtained on Friday morning. We discussed risk and benefits of prophylactic anticoagulation. Given the patient's low risk we chose to forego anticoagulation at this time. Strict return precautions were discussed. Vascular lab and PCP follow-up were arranged. The patient and/or family, caregivers express understanding. The patient and/or family, caregivers agrees with the plan. Shared decision making: I will have a discussion with the patient and or visitors regarding risk/benefits of further testing or admission. They will be made aware of of the risk/benefits inherent in this decision they will be given the opportunity to voice understanding. Total critical care time today provided was at least 0 minutes. This excludes separately billable procedures. Critical care time (if documented) is secondary to the patient having high probability of clinically significant/life threatening deterioration in the patient's condition which required my urgent intervention. Impression: 1. Chronic right leg pain Dispo: Discharge This note was generated with [employer] dictation software. It may contain incorrect words, spelling, and punctuation that were not noted in review of the chart prior to signing. Discharge Plan Triage Chief Complaint: Lower Extremity Injury ED Provider: Deangelo Araujo Dx/Rx/DC Orders Primary Care Provider: Care Physician,No Primary Referrals: Care Physician,No Primary [Primary Care Provider, Medical] Print Language: [place]
[2025-06-18 21:08] VITALS: BP 120/65; PULSE 75; RESP 16; TEMP 36.9; O2SAT 99
== END 2025-06-18 21:09 | disposition home or self-care (01) ==
PROVIDERS: Emergency Provider Emergency Medicine; Visit Provider Emergency Medicine
DX: M79.604 Pain in right leg (principal); G89.29 Other chronic pain
CPT/HCPCS: 99282

== ENCOUNTER → 2025-06-21 | Outpatient (CLI) | payer SELFPAY ==
--- NOTE | 2025-06-21 12:55 | VDLE_ITS ---
Reason For Study Reason For Study: PAIN RIGHT LEFT GSV is normal. CFV is compressible, spontaneous, phasic, competent, CFV is compressible, spontaneous, phasic, competent and demonstrates normal augmentation. and demonstrates normal augmentation. FV is compressible, spontaneous, phasic, competent and demonstrates normal augmentation. POP V is compressible, spontaneous, phasic, competent and demonstrates normal augmentation. T/P Trunk is compressible. PTV is compressible. RT PerV is compressible. Procedure This is a venous duplex using B-mode, color flow and spectral Doppler. Exam performed in department. VL/Venous Duplex US, Unilateral Interpretation Summary Deep veins of the right lower extremity are patent and compressible segmentally . There is no evidence of right lower extremity deep vein thrombosis. Valvular competence appears intact within the p roximal deep venous system on the right . The right great saphenous vein appears patent and compressible segmentally. The left common femoral vein is patent and compressible . Ordering Physician: Deangelo Araujo Referring Physician: ELLIS PCP Performed By: Madelyn Crespo, WAQAR, RVT
== END | disposition home or self-care (01) ==
LOC: CVS 12:49
PROVIDERS: Referring Provider Emergency Medicine; Visit Provider Emergency Medicine
DX: M79.604 Pain in right leg (principal)
CPT/HCPCS: 93971